=== PATIENT | male | born 1940 | race Caucasian/White ===

== ENCOUNTER 2017-12-29 09:11 | Emergency (ER) | payer MEDICARE, SELFPAY ==
[2017-12-29 09:17] VITALS: BP 131/65; PULSE 76; RESP 18; TEMP 36.8; O2SAT 99
--- NOTE | 2017-12-29 09:29 | DI.RAD_ITS ---
SYMPTOMS/DIAGNOSIS: RIGHT PROXIMAL TIBIA PAIN AND SWELLING AFTER BLUNT TRAUMA, ON ANTICOAGULANT RIGHT LEG: Three views were obtained. There are degenerative changes of the knee. There are apparent healed tibial and fibular diaphyseal fractures with two fixation screws in place in the mid tibia. There is no evidence of acute fracture.
--- NOTE | 2017-12-29 09:31 | W.ED.GENAD ---
Discharge Plan Discharge Details Chief Complaint: Orthopedic Primary Care Provider: Horacio Burns ED Provider: Stan Segura Home Meds and New Rx's Prescriptions: No Action cholecalciferol (vitamin D3) 1,000 UNIT capsule 1,000 unit PO DAILY RF: 0 omega-3 fatty acids-fish oil 1 EACH capsule 1 ea PO TID Qty: 270 RF: 4 amlodipine 5 MG tablet 10 mg PO DAILY Qty: 90 RF: 4 metoprolol succinate 25 MG tablet extended release 24 hr 25 mg PO DAILY Qty: 90 RF: 4 latanoprost 2.5 ML drops 1 drp Ophthalmic HS RF: 0 dofetilide 250 MCG capsule 250 mcg PO BID RF: 0 lisinopril 20 MG tablet 20 mg PO DAILY Qty: 90 RF: 4 pravastatin 20 MG tablet 20 mg PO DAILY Qty: 90 RF: 4 rivaroxaban [Xarelto] 20 mg tablet 20 mg PO DAILY Qty: 90 RF: 4 Medical Decision Making 77-year-old male who is anticoagulated for atrial fibrillation presents with days of right pretibial knee pain, swelling, ecchymosis after being struck by a round of cord wood as he was cutting [employer] He certainly has subcutaneous edema and bruising, must exclude underlying fracture, referred for x-ray which does not reveal acute fracture. Concern for occult tibial plateau fracture and patient referred for CT scan of the lower extremity. CT does not reveal acute fracture. Discussed with patient. Stable for outpatient management of contusion to the right proximal tibia continue HPI General Mode of arrival: wheelchair. Date/Time Provider Initiated Documentation: 12/29/17 09:19. Limitations to Documentation: no limitations. Information obtained by: patient and family. History of Present Illness 77 year old M presents to the emergency department with the chief complaint of Right knee pain, described as moderate, Quality is described as aching, and is localized to the right and lower extremity. Patient extremity. Patient started experiencing this day(s) and it has been constant. Immobilization improves symptom(s), Movement worsens symptoms . Patient notes no other symptoms.. HPI Narrative: This is a 77-year-old male who is anticoagulated for atrial fibrillation. He was cutting rounds of [place] [employer] when the blade of the chains are caught a round and through it into his right proximal tibia this past . Since that time he has had pain, swelling, bruising at the site of injury and it is increased with weightbearing though he has been able to ambulate. No other complaints. He did not get injured in any other way. He has not had numbness or tingling Related Data Home Medications Medication Instructions Recorded Confirmed cholecalciferol (vitamin D3) 1,000 unit PO DAILY 09/02/12 12/29/17 omega-3 fatty acids-fish oil 1 ea PO TID #270 09/02/12 12/29/17 amlodipine 10 mg PO DAILY #90 tab-cap 10/19/15 12/29/17 metoprolol succinate 25 mg PO DAILY #90 tab-cap 12/12/15 12/29/17 dofetilide 250 mcg PO BID 04/23/16 12/29/17 latanoprost 1 drp OPHTHALMIC HS drp 04/23/16 12/29/17 lisinopril 20 mg PO DAILY #90 tab-cap 10/06/17 12/29/17 pravastatin 20 mg PO DAILY #90 tab-cap 10/06/17 12/29/17 rivaroxaban 20 mg tablet 20 mg PO DAILY #90 tab-cap 12/25/17 12/29/17 Previous Rx's Medication Instructions Recorded lisinopril 20 mg PO DAILY #90 tab-cap 10/06/17 pravastatin 20 mg PO DAILY #90 tab-cap 10/06/17 rivaroxaban 20 mg tablet 20 mg PO DAILY #90 tab-cap 12/25/17 Allergies Allergy/AdvReac Type Severity Reaction Status Date / Time No Known Allergies Allergy Unverified 12/29/17 09:35 General Stated Complaint: Orthopedic DONNELL: 3 Review of Systems Review of Systems 6 systems reviewed and otherwise negative [facility] Family History Mother Essential hypertension Hyperlipidemia Cerebrovascular accident Father Personal history of malignant neoplasm Sister Essential hypertension Brother No problems noted. Grandfather No problems noted. Grandfather Myocardial infarction Cerebrovascular accident Grandmother No problems noted. Grandmother No problems noted. Son No problems noted. Son No problems noted. Surgical History Appendectomy Arthroplasty of knee (~01/2009) BUNIONECTOMY Fracture, Open Treatment (~1969) Open Carpal Tunnel release Exam Narrative Exam Narrative: GEN: awake, alert, oriented 3. Pleasant, well groomed, interactive. HEAD: Normocephalic, atraumatic ENT: Mucous membranes moist, oropharynx unremarkable, External ear exam unremarkable EYES: PERRL, EOMI NECK: Full ROM, no TARIQ, no menigismus CHEST/RESP: Nontender, clear to auscultation bilateral, no wheeze/rhonchi/rales CARDIOVASCULAR: RRR at the time of my exam, distant, no murmur, rub evon. 2+ Rad pulse bilateral ABDOMEN: Soft, nontender, no mass. +Bowel sounds EXT: Full ROM, no rash. Pain with palpation of the right knee. The joint is fully mobile. There is ecchymosis and swelling from the proximal right knee through the mid tibia. There is healed previous surgical incision of anterior tibia. 1+ palpable dorsalis pedis bilaterally. Sensation intact throughout the extremity Neuro: Grossly normal neurologic exam, conversant, interactive. Psych: Speech fluent, thoughts congruent, affect normal Course Vital Signs Temperature 36.8 C 12/29/17 09:17 Pulse 76 12/29/17 09:17 Respiratory Rate 18 12/29/17 09:17 Blood Pressure 131/65 12/29/17 09:17 Pulse Oximetry 99 12/29/17 09:17 Temperature 36.8 C 12/29/17 09:17 Temperature Source Temporal Artery Scan 12/29/17 09:17 Pulse 76 12/29/17 09:17 Respiratory Rate 18 12/29/17 09:17 Blood Pressure 131/65 12/29/17 09:17 Blood Pressure Position Sitting 12/29/17 09:17 Pulse Oximetry 99 12/29/17 09:17 Oxygen Delivery Method Room Air 12/29/17 09:17 Oxygen Flow Rate 0 12/29/17 09:17
--- NOTE | 2017-12-29 09:34 | ED.GENADUL_ITS ---
Discharge Plan Discharge Details Chief Complaint: Orthopedic Primary Care Provider: Horacio Burns ED Provider: Stan Segura Home Meds and New Rx's Prescriptions: No Action cholecalciferol (vitamin D3) 1,000 UNIT capsule 1,000 unit PO DAILY RF: 0 omega-3 fatty acids-fish oil 1 EACH capsule 1 ea PO TID Qty: 270 RF: 4 amlodipine 5 MG tablet 10 mg PO DAILY Qty: 90 RF: 4 metoprolol succinate 25 MG tablet extended release 24 hr 25 mg PO DAILY Qty: 90 RF: 4 latanoprost 2.5 ML drops 1 drp Ophthalmic HS RF: 0 dofetilide 250 MCG capsule 250 mcg PO BID RF: 0 lisinopril 20 MG tablet 20 mg PO DAILY Qty: 90 RF: 4 pravastatin 20 MG tablet 20 mg PO DAILY Qty: 90 RF: 4 rivaroxaban [Xarelto] 20 mg tablet 20 mg PO DAILY Qty: 90 RF: 4 Medical Decision Making 77-year-old male who is anticoagulated for atrial fibrillation presents with days of right pretibial knee pain, swelling, ecchymosis after being struck by a round of cord wood as he was cutting [employer]. He certainly has subcutaneous edema and bruising, must exclude underlying fracture, referred for x-ray which does not reveal acute fracture. Concern for occult tibial plateau fracture and patient referred for CT scan of the lower extremity. CT does not reveal acute fracture. Discussed with patient. Stable for outpatient management of contusion to the right proximal tibia continue HPI General Mode of arrival: wheelchair . Date/Time Provider Initiated Documentation: 12/29/17 09:19 . Limitations to Documentation: no limitations . Information obtained by: patient and family . History of Present Illness 77 year old M presents to the emergency department with the chief complaint of Right knee pain, described as moderate, Quality is described as aching, and is localized to the right and lower extremity. Patient extremity. Patient started experiencing this day(s) and it has been constant. Immobilization improves symptom(s), Movement worsens symptoms . Patient notes no other symptoms.. HPI Narrative: This is a 77-year-old male who is anticoagulated for atrial fibrillation. He was cutting rounds of [place] [employer] when the blade of the chains are caught a round and through it into his right proximal tibia this past . Since that time he has had pain, swelling, bruising at the site of injury and it is increased with weightbearing though he has been able to ambulate. No other complaints. He did not get injured in any other way. He has not had numbness or tingling Related Data Home Medications Medication Instructions Recorded Confirmed cholecalciferol (vitamin D3) 1,000 unit PO DAILY 09/02/12 12/29/17 omega-3 fatty acids-fish oil 1 ea PO TID #270 09/02/12 12/29/17 amlodipine 10 mg PO DAILY #90 tab-cap 10/19/15 12/29/17 metoprolol succinate 25 mg PO DAILY #90 tab-cap 12/12/15 12/29/17 dofetilide 250 mcg PO BID 04/23/16 12/29/17 latanoprost 1 drp OPHTHALMIC HS drp 04/23/16 12/29/17 lisinopril 20 mg PO DAILY #90 tab-cap 10/06/17 12/29/17 pravastatin 20 mg PO DAILY #90 tab-cap 10/06/17 12/29/17 rivaroxaban 20 mg tablet 20 mg PO DAILY #90 tab-cap 12/25/17 12/29/17 Previous Rx's Medication Instructions Recorded lisinopril 20 mg PO DAILY #90 tab-cap 10/06/17 pravastatin 20 mg PO DAILY #90 tab-cap 10/06/17 rivaroxaban 20 mg tablet 20 mg PO DAILY #90 tab-cap 12/25/17 Allergies Allergy/AdvReac Type Severity Reaction Status Date / Time No Known Allergies Allergy Unverified 12/29/17 09:35 General Stated Complaint: Orthopedic DONNELL: 3 Review of Systems Review of Systems 6 systems reviewed and otherwise negative [facility] Family History Mother Essential hypertension Hyperlipidemia Cerebrovascular accident Father Personal history of malignant neoplasm Sister Essential hypertension Brother No problems noted. Grandfather No problems noted. Grandfather Myocardial infarction Cerebrovascular accident Grandmother No problems noted. Grandmother No problems noted. Son No problems noted. Son No problems noted. Surgical History Appendectomy Arthroplasty of knee (~01/2009) BUNIONECTOMY Fracture, Open Treatment (~1969) Open Carpal Tunnel release Exam Narrative Exam Narrative: GEN: awake, alert, oriented 3. Pleasant, well groomed, interactive. HEAD: Normocephalic, atraumatic ENT: Mucous membranes moist, oropharynx unremarkable, External ear exam unremarkable EYES: PERRL, EOMI NECK: Full ROM, no TARIQ, no menigismus CHEST/RESP: Nontender, clear to auscultation bilateral, no wheeze/rhonchi/rales CARDIOVASCULAR: RRR at the time of my exam, distant, no murmur, rub evon. 2+ Rad pulse bilateral ABDOMEN: Soft, nontender, no mass. +Bowel sounds EXT: Full ROM, no rash. Pain with palpation of the right knee. The joint is fully mobile. There is ecchymosis and swelling from the proximal right knee through the mid tibia. There is healed previous surgical incision of anterior tibia. 1+ palpable dorsalis pedis bilaterally. Sensation intact throughout the extremity Neuro: Grossly normal neurologic exam, conversant, interactive. Psych: Speech fluent, thoughts congruent, affect normal Course Vital Signs Temperature 36.8 C 12/29/17 09:17 Pulse 76 12/29/17 09:17 Respiratory Rate 18 12/29/17 09:17 Blood Pressure 131/65 12/29/17 09:17 Pulse Oximetry 99 12/29/17 09:17 Temperature 36.8 C 12/29/17 09:17 Temperature Source Temporal Artery Scan 12/29/17 09:17 Pulse 76 12/29/17 09:17 Respiratory Rate 18 12/29/17 09:17 Blood Pressure 131/65 12/29/17 09:17 Blood Pressure Position Sitting 12/29/17 09:17 Pulse Oximetry 99 12/29/17 09:17 Oxygen Delivery Method Room Air 12/29/17 09:17 Oxygen Flow Rate 0 12/29/17 09:17
--- NOTE | 2017-12-29 10:20 | DI.CT_ITS ---
SYMPTOMS/DIAGNOSIS: RIGHT PROXIMAL TIBIA PAIN AND SWELLING AFTER BLUNT TRAUMA, ON ANTICOAGULANT RIGHT KNEE CT: CT examination of the knee was performed utilizing multislice acquisition and multiplanar reconstruction. Note is made of a small knee joint effusion and there appears to be a presumed anterior hematoma at the level of the proximal tibia. No underlying fracture identified. Marked patchy and focal demineralization of the bones noted. CONCLUSION: No evidence of acute fracture.
[2017-12-29 11:11] VITALS: BP 112/80; PULSE 80; RESP 18; TEMP 36.9; O2SAT 99
== END 2017-12-29 11:12 | disposition home or self-care (01) ==
PROVIDERS: Emergency Provider Emergency Medicine; PCP Family Medicine
DX: S80.11XA Contusion of right lower leg, initial encounter (principal); W20.8XXA Other cause of strike by thrown, projected or falling object, initial encounter; I10 Essential (primary) hypertension; Z79.01 Long term (current) use of anticoagulants; I48.91 Unspecified atrial fibrillation
CPT/HCPCS: 99284; 73590; 73700

== ENCOUNTER 2018-12-24 07:00 | Outpatient (CLI) | payer MEDICARE, SELFPAY ==
[2018-12-24 12:33] LABS: HCT 43.9 % (40.0-50.0); HGB 14.8 g/dL (13.5-17.5); Mean Corp. HGB Concentration 33.7 g/dL (32.0-36.0); Mean Corpuscular Hemoglobin 31.2 pg (27.0-33.0); Mean Corpuscular Volume 92.4 fL (80-95); Mean Platelet Volume 9.8 fL (8.0-11.0); Platelet Count 260 x1000/uL (130-400); RBC 4.75 m/cumm (4.50-6.00); RBC Distribution Width 12.9 % (11.8-14.1); White Blood Cell Count 6.46 k/cumm (4.4-10.8)
[2018-12-24 13:42] LABS: Anion Gap 10.1 mmol/L (3-11); BUN 16 mg/dL (7-18); CO2 27.9 mmol/L (21.0-32.0); CREATININE 0.92 mg/dL (0.70-1.30); Calcium 9.2 mg/dL (8.5-10.1); Chloride 104 mmol/L (98-107); Glucose 115 mg/dL (70-100); Potassium 3.8 mmol/L (3.5-5.1); Sodium 142 mmol/L (136-145)
== END 2018-12-24 07:20 ==
PROVIDERS: PCP Family Medicine; Visit Provider Family Medicine
DX: I10 Essential (primary) hypertension (principal); Z01.818 Encounter for other preprocedural examination
CPT/HCPCS: 36415; 80048; 85027

== ENCOUNTER → 2019-07-19 10:25 | Outpatient (BNVA) | payer MEDICARE, SELFPAY | PROVIDERS: PCP Family Medicine; Referring Provider Family Medicine; Visit Provider Nurse Practitioner Gerontology | DX: R31.0 Gross hematuria (principal); N40.1 Benign prostatic hyperplasia with lower urinary tract symptoms; N13.8 Other obstructive and reflux uropathy; E11.9 Type 2 diabetes mellitus without complications; I10 Essential (primary) hypertension | CPT/HCPCS: 99204; 99215 ==

== ENCOUNTER 2019-07-19 14:16 | Outpatient (REF) | payer MEDICARE, SELFPAY ==
--- NOTE | 2019-07-19 14:00 | PAPNONF_PTH ---
PATIENT: Tan Squires JR LOC: [facility] U#:[id number] AGE/SX: 79/M ROOM: RE07/19/[address]: Daxa Santamaria DNP : 1940 BED: DIS: 07/19/2019 SPEC #: [id number] RECD: 07/20/19 14:50 STATUS: SALLY REQ #: [id number] MYCHAL: 07/19/19 14:[address]: Daxa Santamaria DEPT: [facility] Cytology RECD BY: Mike Escobar ENTERED: 07/20/19 14:51 SP TYPE: IRMA JAQUEZ DR: Marcos Morales MD Tissues: 1 - BODY FLUID CYTO(SPUTUM/URINE)[facility] Procedures: BODY FLUID CYTO(URINE/SPUTUM) Comments: [id number] (Total Volume = 60mls)
== END 2019-07-19 14:36 ==
LOC: LBN 14:16
PROVIDERS: PCP Family Medicine; Visit Provider Nurse Practitioner Gerontology
DX: R31.0 Gross hematuria (principal); R82.89 Other abnormal findings on cytological and histological examination of urine
CPT/HCPCS: 88104

== ENCOUNTER 2019-07-28 02:07 | Outpatient (CLI) | payer MEDICARE, SELFPAY ==
[2019-07-28] MEDS: Omnipaque 350 MG/ML 100 ML BTL IJ (08:21)
[2019-07-28] MEDS: Normal Saline - Diluent 50 ML VIAL IV (08:21)
[2019-07-28] MEDS: Normal Saline Flush 10 ML SYR IVP (08:27)
--- NOTE | 2019-07-28 09:20 | DI.CT_ITS ---
EXAM: CT ABDOMEN PELVIS WO/W CLINICAL HISTORY: painless gross hematuria; Atypical urothetial,R31.9,R31.0 COMPARISON: No exams were available for comparison FINDINGS: CT examination of the abdomen and pelvis was performed utilizing CT urogram protocol with noncontrast CT followed by venous phase and delayed phase imaging. The noncontrast scan shows a nonobstructing right midpole renal calculus or calculi measuring about 3-4 millimeters in diameter. No left nephrol ithiasis. No ureterolithiasis. There is a urinary bladder calcification which is irregular measurin g up to about 16 millimeters in diameter. Visualized lung bases are clear. There are new numerous fluid attenuation masses of the liver and madonna th kidneys consistent with cysts. Otherwise liver, spleen, and pancreas appear intact. Gallbladder and bile ducts are unremarkable. Abdominal aorta and major branches appear intact. No significant abdominal wall hernia seen. No significant abdominal or pelvic adenopathy seen. Appendix not visualized but there is no evidence of diverticulitis or appendicitis. The adrenals appear normal bilaterally. No enhancement seen regarding the fluid attenuation bilatera l renal masses, consistent with cysts. No gross abnormality of the renal collecting systems or urete rs. Delayed phase images show abnormal contour of the urinary bladder wall with multi lobulated masslike lesions seen bilaterally on the sidewalls of the bladder adjacent to the trigone, left greater than right. There is mild prostatic enlargement. The findings as described are suspicious for bladder wal l neoplasm. Additional evaluation with cystoscopy and retrograde ureterography are recommended. IMPRESSION: Nonobstructing right renal calculus. Urinary bladder calculus. Multiple apparent renal and hepatic cysts. There are apparent lobulated bladder wall masses bilaterally, suspicious for neoplastic disease. Cor relation with cystoscopy and retrograde ureterography recommended.
== END 2019-07-28 02:27 ==
PROVIDERS: PCP Family Medicine; Visit Provider Nurse Practitioner Gerontology
DX: R31.0 Gross hematuria (principal); N20.0 Calculus of kidney; N32.89 Other specified disorders of bladder; N28.1 Cyst of kidney, acquired; K76.89 Other specified diseases of liver
CPT/HCPCS: 74178; 82565; J3490

== ENCOUNTER → 2019-07-29 15:01 | Outpatient (BNVA) | payer MEDICARE, SELFPAY | PROVIDERS: PCP Family Medicine; Referring Provider Family Medicine; Visit Provider Nurse Practitioner Gerontology | DX: N32.89 Other specified disorders of bladder (principal); N21.0 Calculus in bladder | CPT/HCPCS: 99213; 99442 ==

== ENCOUNTER 2019-08-02 09:18 | Outpatient (CLI) | payer MEDICARE, SELFPAY ==
[2019-08-03 14:50] LABS: COVID-19 RT-PCR Result Not Detected ((See Note))
== END 2019-08-02 09:38 ==
PROVIDERS: PCP Family Medicine; Visit Provider Urology
DX: Z11.59 Encounter for screening for other viral diseases (principal)
CPT/HCPCS: U0003

== ENCOUNTER 2019-08-05 08:41 | Inpatient (IN) | payer MEDICARE, SELFPAY ==
[2019-08-05] VITALS (11 sets, daily range): BP systolic 112–149; BP diastolic 49–78; PULSE 42–65; RESP 11–18; TEMP 35.8–37; O2SAT 94–100
--- NOTE | 2019-08-05 09:08 | W.PM.HP.N ---
Date of service: 08/05/19 Time of Service: 10:37 Assessment and Plan Assessment and plan (1) Hematuria: Status: Acute Assessment and plan: I am not sure that we will be able to get to all of his bladder pathology addressed in one setting. Ideally, we would deal with his bladder mass first. With the large stone in his bladder, it may be difficult to visualize all of his mucosa and resect all of his tumor. If we are able to complete his bladder tumor resection and our visibility is still quite good, we can then attempt to perform a holmium laser lithotripsy of his large bladder stone. If visibility is questionable, we will likely need to do a staged procedure. I would expect that we will need continuous bladder irrigation overnight given the radiographic size of his bladder tumor and bladder stone.. (2) Bladder mass: Status: Acute (3) Bladder stone: Status: Acute History of Present Illness History of Present Illness Chief Complaint: Hematuria Narrative: Tan is a 79-year-old male referred to urology by Dr. Burns out of [facility] for gross hematuria. At annual exam patient provided urine sample due to history of gross hematuria -urine was positive for moderate amount of blood. He will have an episode of gross hematuria approximately every month where he sees brown or dark-colored urine with voiding. No clots or gelatinous material. He has no discomfort when this occurs. He notes that after a few voids in the morning his urine clears after drinking plenty of fluids. Patient reports that he has had notable gross hematuria for about 4 months. He also notes that he is on a blood thinner for A. fib. He has not tried holding or changing it to see if this stops the blood due to the hematuria only lasting a day or less. Patient is asymptomatic for infection or kidney stones. He does note that he has an occasional suprapubic joint bone pain. He also notes he is up to the bathroom 3-4 times a night. He notes he does not have urinary frequency or urgency but when he is up and about passing the bathroom he will stop to go. He notes there is some urinary hesitancy. He finds that he stream is weaker than it was when he was younger. He thinks he is emptying completely but there is times when he feels like he is not. In terms of urology he does have history of kidney stones approximately 20 years ago. He had 2 bouts relatively close together. He notes that he passed the stones without use of surgical intervention. 1 stone was collected and was determined to be a calcium oxalate. He has no history of parathyroidism or gout. He denies long bone pain, abnormal bleeding or bruising, or abnormal weight loss. He does report being in extensive cigarette smoker of 46 years. He smokes anywhere between 1 to 2 packs/day on average. He denies chemical exposures but used to work at the [employer] in [place]. He was evaluated with a urine cytology which showed some atypical cells. He then had a CT scan which demonstrates filling defects within the bladder worrisome for carcinoma as well as a very large bladder stone. Review of Systems Narrative: No fevers or chills No vision change or dysphasia No diabetes or thyroid No shortness of breath, cough or hemoptysis No chest pain. Hx Atrial Fibrillation c/o suprapubic discomfort. No nausea, vomiting, hepatitis, ulcers, jaundice, diarrhea or constipation No seizures, strokes or peripheral neuropathy No bleeding disorders or anemia No gout PFSH Social History (Updated 06/02/19 @ 11:55 by James Pozo) Smoking/Tobacco Use Status: Former Tobacco Use Quit Date: 08/29/04 Second Hand Exposure: Yes Alcohol Intake: current Alcohol Intake frequency: a few times a week Alcohol type: wine Drug use: Never Substance use type: does not use Caregiver/Support person: No Household members: spouse Housing: house Communication Needs: Corrective Lenses Do you need help understanding health information?: Rarely Pets and animals: No Sexually active: Yes Do you think of yourself as: straight/heterosexual Current gender identity: male What is your relationship status?: How often do you talk on the phone with friends or family?: three or more times per week How often do you get together with friends or relatives?: twice per week How often do you attend episcopal or oriental orthodox services?: decline to answer Do you belong to any clubs or organized social groups?: yes Panel score (0-1 are the most socially isolated patients): 3 What type of physical activity do you participate in: none Frequency: does not exercise Debora/Zoroastrian: Sabianist Special debora needs: No Seatbelt use: never Helmet use: No 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: No Do you feel safe at home: Yes Do you feel safe in your relationship?: Yes Meds Home Medications and Allergies Home Medications Medication Instructions Recorded Confirmed Type cholecalciferol (vitamin D3) 1,000 unit PO DAILY 09/02/12 08/05/19 History omega-3 fatty acids-fish oil 1 ea PO DAILY #270 09/02/12 08/05/19 History amlodipine 5 mg tablet 10 mg PO HS #90 tab-cap 06/09/19 08/05/19 History dofetilide 250 mcg capsule 250 mcg PO BID 06/09/19 08/05/19 History latanoprost 0.005 % eye drops 1 drp OPHTHALMIC HS drp 06/09/19 08/05/19 History metoprolol succinate 25 mg 25 mg PO DAILY #90 tab-cap 06/09/19 08/05/19 History tablet,extended release 24 hr rivaroxaban 20 mg tablet 20 mg PO DAILY #90 tab-cap 07/12/19 08/05/19 Rx lisinopril 20 mg PO HS 08/02/19 08/05/19 History pravastatin 20 mg PO HS 08/02/19 08/05/19 History Allergies Allergy/AdvReac Type Severity Reaction Status Date / Time No Known Allergies Allergy Verified 08/05/19 08:54 Exam Narrative Exam Narrative: He is in no obvious distress. He is cooperative. His vital signs are documented elsewhere in the chart His neck is supple with no mass Cardiac exam shows a regular rate and rhythm Lungs are clear His abdomen is obese but soft with no mass He has no edema in the lower extremities He is awake and alert Results Last Vital Signs Temp 36.1 C L 08/05/19 08:56 Pulse 65 08/05/19 08:56 Resp 17 08/05/19 08:56 BP 132/78 08/05/19 08:56 Pulse Ox 95 08/05/19 08:56 COVID-19 Screening Traveled to [place] from one of the affected countries or regions?: NO Medical treatment received for symptoms/illness related to travel?: Preop COVID testing completed and negative
[2019-08-05] MEDS: Lactated Ringers 1,000 ML 80 ML IV ×2 (09:27→15:01)
[2019-08-05] MEDS: ceFAZolin 1 GM/50 ML BAG IVPB (11:18)
[2019-08-05] MEDS: Lidocaine 2% Jelly 6 ML SYR (11:56)
--- NOTE | 2019-08-05 12:42 | BLADDER_PTH ---
PATIENT: Tan Squires JR LOC: U#:[id number] AGE/SX: 79/M ROOM: RE08/05/[address]: Amaury Deutsch MD : 1940 BED: A DIS: 08/06/2019 SPEC #: [id number] RECD: 08/05/19 14:20 STATUS: SALLY REQ #: [id number] MYCHAL: 08/05/19 12:[address]: Amaury Deutsch DEPT: Surgical Specimen RECD BY: Mike Escobar ENTERED: 08/05/19 14:21 SP TYPE: Bladder OTHR DR: Horacio Burns MD Tissues: 1 - BLADDER BIOPSY Procedures: GROSS AND MICRO LEVEL 5 Comments: [id number]
--- NOTE | 2019-08-05 12:57 | ROE_ITS ---
Date of service: 08/05/19 Time of Service: 12:57 Operative Note Operative Note DATE OF PROCEDURE: 08/05/19 PRE-OP DIAGNOSIS: Hematuria Bladder mass Bladder stone POST-OP DIAGNOSIS: same PROCEDURE: Cystoscopy, Holmium laser lithotripsy of Bladder stone, TUR Bladder tumor (>5 cm) SURGEON: Amaury Deutsch ANESTHESIA: spinal ESTIMATED BLOOD LOSS: 200 PATHOLOGY: other (1) Bladder Stone 2) Bladder Mass) COMPLICATIONS: None Patient was transported to: PACU Patient's condition: stable Indications: This is a 79-year-old gentleman who initially noticed gross painless hematuria. He had a urine cytology that demonstrated some 8 core urothelial cells. He then had a CT scan which showed a mass within the bladder as well as a large stone in the bladder. He also had a nonobstructing stone in the right kidney. He now presents for cystoscopy with transurethral resection of bladder tumor and possible holmium laser lithotripsy of his bladder stone Findings: Large spiculated bladder stone Papillary appearing bladder tumor occupying the majority of the left side of the bladder (measuring greater than 5 cm) Smaller papillary tumor on right lateral bladder wall near the bladder neck (2 to 5 cm) Procedure Description: The patient was brought to the operating room on 08/05/2019. He was given a dose of IV antibiotics. After successful induction of spinal anesthesia, he was placed in the dorsal lithotomy position. His genitalia is prepped and draped. 2% Xylocaine jelly was instilled into the urethra to act as a local anesthetic. I then dilated the urethral meatus up to a size 26 [place]. A 26 [place] resectoscope sheath was passed through the urethra into the bladder. I utilized the visual obturator to inspect the urethra using a 30 degree lens. The pendulous bulbous membranous urethra was appeared normal with no strictures. The prostatic urethra showed trilobar hypertrophy with a prominent median lobe. The bladder neck was then entered the bladder mucosa was inspected. The entire left side of the bladder appeared to be replaced with papillary mucosa worrisome for urothelial cell carcinoma. A small less than 2 cm area of papillary growth was seen up toward the dome of the bladder. A third area of papillary growth was seen on the right lateral wall near the bladder neck. A spiculated bladder stone was identified as well. We decided to start her treatment on the stone itself. We removed the resectoscope sheath and passed a 22 [place] cystoscope through the urethra into the bladder. I used a 1000 ?m holmium laser fiber to fracture the stone into multiple pieces. All the fractured stone fragments were then evacuated and sent to both pathology for chemical analysis I then switched back to the 26 [place] resectoscope sheath and used an Tasqe resectoscope and bipolar cautery to resect all visible tumor. All resected tissue was evacuated and sent to pathology for permanent section. The base of the resection site was cauterized with the coagulation current. At the completion of the resection, hemostasis appeared quite good. Due to the depth of the resection, we elected not to instill intravesical chemotherapy postoperatively. The bladder was then filled with irrigant. The resectoscope was removed. A 24 [place] hematuria catheter was then passed through the urethra into the bladder. The catheter balloon was inflated with 30 cc of sterile water. Continuous bladder irrigation with saline was then begun. A belladonna and opium suppository was then placed in the patient's rectum. He tolerated this procedure well with no complications.
--- NOTE | 2019-08-05 15:32 | NUR.NOTE ---
Nursing Note: 1505: pt arrives to room 209 via pt bed from PACU. pt has patent 3 way renee CBI at this time with light pink drainage noted in renee. pt has patent IV in RH with LR @ 80 cc/hr. pt alert/oriented x 3. pt states he feels his pain is good at this time. pt oriented to call perkins/tv remote. reviewed symptoms to report to nursing. VSS-please see intervention on worklist. pt HR is jenna in 40's at this time; has been jenna since surgery. 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 pt handed off to Marlon Anguiano RN at approximately 1515 at the bedside.
[2019-08-05] MEDS: ceFAZolin 2 GM/50 ML BAG IVPB (20:13)
[2019-08-05] MEDS: Dofetilide 250 MCG CAP PO (20:14)
[2019-08-05] MEDS: amLODIPine 5 MG TAB 10 MG PO (21:02)
[2019-08-05] MEDS: Pravastatin 20 MG TAB PO (21:02)
[2019-08-05] MEDS: Lisinopril 20 MG TAB PO (21:02)
[2019-08-05] MEDS: Latanoprost 0.005% 2.5 ML BTL OU (21:03)
[2019-08-06 03:29] VITALS: BP 117/67; PULSE 61; RESP 18; TEMP 36.9; O2SAT 93
[2019-08-06] MEDS: ceFAZolin 2 GM/50 ML BAG IVPB ×2 (04:22→11:59)
[2019-08-06] MEDS: Lactated Ringers 1,000 ML 80 ML IV (04:23)
--- NOTE | 2019-08-06 07:02 | PGE_ITS ---
Date of Service Date of service: 08/06/19 Time of Service: 07:02 Assessment and Plan Assessment and plan (1) Bladder mass: Status: Acute Assessment and plan: We would discontinue his bladder irrigation but leave his catheter in place to make sure the urine remains clear. Once his labs are available this morning, and we see how he does without irrigation, we can probably discharge him to home. We will decide whether to discharge with or without a catheter based on his clinical progression. If he does go home with a catheter, he will come to our office on Friday to have it removed. (2) Bladder stone: Status: Acute Subjective Subjective Interval history since last seen: He has some catheter discomfort. He had no fevers or chills overnight. He is able to take p.o. with no nausea or vomiting Exam Narrative Exam Narrative: He looks well. His vital signs are documented elsewhere. His bladder irrigation is clear at this point He is awake and alert His labs are just being drawn this morning Objective Objective Clinical Data: Vital Signs Temperature 36.9 C 08/06/19 03:29 Temperature Source Tympanic 08/06/19 03:29 Pulse 61 08/06/19 03:29 Pulse Rhythm Irregular 08/06/19 06:29 Respiratory Rate 18 08/06/19 03:29 Respiratory Effort Non-Labored 08/06/19 06:29 Respiratory Depth Normal 08/06/19 06:29 Respiratory Pattern Normal 08/06/19 06:29 Blood Pressure 117/67 08/06/19 03:29 Pulse Oximetry 93 L 08/06/19 03:29 Respiratory End-tidal CO2 38 08/05/19 14:22 Oxygen Delivery Method Room Air 08/06/19 03:29 Oxygen Flow Rate 0 08/06/19 03:29 Pain Level 0 08/05/19 19:25 Intake & Output 08/05/19 08/05/19 08/06/19 11:59 23:59 11:59 Intake Total 1890 / 1890 1050 / 1050 Balance 1890 / 1890 1050 / 1050 Weight 101.5 kg Intake: IV 1650 / 1650 1050 / 1050 Oral 240 / 240 Other: Urine Color Humphreys Pale [place] Urine Appearance Clear Hematuria Comment from bright red to straw, no clots noted Approx 2300 urine output was found to have stopped. Assessment eventually revealed that the problem was an upstream occlusion. The pause in irrigation led to the need to hand irrigate x 1 which cleared the lumen of several mL of red-brown, sludgy, granular exudate. After this 3-way irrigation was maintained and output is clear pale pink. Emesis Description None
[2019-08-06 07:16] LABS: HCT 41.7 % (40.0-50.0); HGB 14.1 g/dL (13.5-17.5); Mean Corp. HGB Concentration 33.8 g/dL (32.0-36.0); Mean Corpuscular Hemoglobin 31.1 pg (27.0-33.0); Mean Corpuscular Volume 91.9 fL (80-95); Platelet Count 228 x1000/uL (130-400); RBC 4.54 m/cumm (4.50-6.00); RBC Distribution Width 12.9 % (11.8-14.1); White Blood Cell Count 8.33 k/cumm (4.4-10.8)
[2019-08-06 07:22] LABS: Anion Gap 4.1 mmol/L (3-11); BUN 20 mg/dL (7-18); CO2 30.9 mmol/L (21.0-32.0); CREATININE 0.87 mg/dL (0.70-1.30); Calcium 8.5 mg/dL (8.5-10.1); Chloride 103 mmol/L (98-107); Glucose 109 mg/dL (74-106); Sodium 138 mmol/L (136-145)
[2019-08-06 07:30] VITALS: BP 110/65; PULSE 62; RESP 19; TEMP 36.6; O2SAT 94
[2019-08-06] MEDS: Metoprolol CR 25 MG TABCR PO (07:51)
[2019-08-06] MEDS: Omega-3 Fatty Acids 1000 MG CAP PO (07:51)
[2019-08-06] MEDS: Cholecalciferol (Vitamin D3) 1,000 UNIT TAB 1000 UNITS PO (07:51)
[2019-08-06] MEDS: Dofetilide 250 MCG CAP PO (07:52)
--- NOTE | 2019-08-06 10:30 | DSE_ITS ---
Date of service: 08/06/19 Time of Service: 10:30 DS: Diagnosis Discharge Diagnosis (1) Bladder mass: Status: Acute (2) Bladder stone: Status: Acute Discharge Plan Disposition Patient Disposition: HOME Condition: Stable Discharge Details Reason For Visit: BLADDER MASS Admit Date/Time: 08/05/19 08:41 Admit Provider: Amaury Deutsch Attending Provider: Amaury Deutsch Primary Care Provider: [facility] Hospital Course Hospital Course: The patient was brought to the operating room on 08/05/2019. He underwent cystoscopy which revealed a large bladder stone and a large bladder mass. We were able to fragment the stone using the holmium laser. All evacuated stone fragments were sent for chemical analysis. We were then able to resect his visible bladder tumor. We left a irrigating Diaz catheter in place and ran continuous bladder irrigation overnight. On postoperative day #1, the irrigant was clear. His lab work was stable. We discontinued the irrigation and the urine itself remains transparent. I removed his Diaz catheter. He will be discharged later today without a catheter as long as he is voiding. If he is unable to void, we will likely replace his catheter and he will still be able to go home with his catheter to a leg bag. Home Meds and New Rx's Prescriptions: New tramadol 50 mg tablet 50 mg PO Q8H PRN (Reason: pain) Qty: 15 RF: 0 No Action cholecalciferol (vitamin D3) 1,000 UNIT capsule 1,000 unit PO DAILY RF: 0 omega-3 fatty acids-fish oil 1 EACH capsule 1 ea PO DAILY Qty: 270 RF: 4 dofetilide 250 mcg capsule 250 mcg PO BID RF: 0 amlodipine 5 mg tablet 10 mg PO HS Qty: 90 RF: 4 latanoprost 0.005 % drops 1 drp Ophthalmic HS RF: 0 metoprolol succinate 25 mg tablet extended release 24 hr 25 mg PO DAILY Qty: 90 RF: 4 Xarelto 20 mg tablet 20 mg PO DAILY Qty: 90 RF: 4 lisinopril 20 mg tablet 20 mg PO HS RF: 0 pravastatin 20 mg tablet 20 mg PO HS RF: 0 Discharge Instructions Additional Instructions: We will ask him to discontinue his Xarelto until his urine shows no signs of blood No straining or lifting greater than 10 pounds until his follow-up visit Okay to shower/bathe Follow-up 1 week to review surgical pathology Prescription for tramadol sent to pharmacy Activity:: See above Equipment/Supplies:: No Equipment Needed Diet:: As Tolerated Discharge Orders Discharge Orders: Discharge Order (Routine); Ordered 08/06/19 Ordered By: Amaury Deutsch Discharge Data Discharge Comment: Only discharge if patient is voiding well DS: Summary Status at Discharge Functional status at discharge: independent ambulation Overall status at discharge: patient is back to baseline Mental Status: mental status grossly normal Speech and Movement: speech and movement normal Mood: congruent mood Affect: normal affect Exam Narrative Exam Narrative: On the morning of his discharge, the patient looks well He does not appear septic or toxic His vital signs are documented elsewhere His abdomen is soft with no masses He is awake, alert and oriented. Psych Mental Status: mental status grossly normal Speech and Movement: speech and movement normal Mood: congruent mood Affect: normal affect DS: Data Vitals/I&O Vitals and I&O: Vital Signs Temperature 36.6 C 08/06/19 07:30 Temperature Source Tympanic 08/06/19 07:30 Pulse 62 08/06/19 07:30 Pulse Rhythm Irregular 08/06/19 06:29 Respiratory Rate 19 08/06/19 07:30 Respiratory Effort Non-Labored 08/06/19 06:29 Respiratory Depth Normal 08/06/19 06:29 Respiratory Pattern Normal 08/06/19 06:29 Blood Pressure 110/65 08/06/19 07:30 Pulse Oximetry 94 L 08/06/19 07:30 Respiratory End-tidal CO2 38 08/05/19 14:22 Oxygen Delivery Method Room Air 08/06/19 07:30 Oxygen Flow Rate 0 08/06/19 07:30 Pain Level 0 08/06/19 07:30 Intake & Output 08/05/19 08/05/19 08/06/19 11:59 23:59 11:59 Intake Total 1890 / 1890 1050 / 1050 Balance 189 / 1890 1050 / 1050 Weight 101.5 kg Intake: IV 1650 / 1650 1050 / 1050 Oral 240 / 240 Other: Urine Color Humphreys Pale [place] Urine Appearance Clear Hematuria Comment from bright red to straw, no clots noted Approx 2300 urine output was found to have stopped. Assessment eventually revealed that the problem was an upstream occlusion. The pause in irrigation led to the need to hand irrigate x 1 which cleared the lumen of several mL of red-brown, sludgy, granular exudate. After this 3-way irrigation was maintained and output is clear pale pink. Emesis Description None Data Completed and Pending Labs on day of discharge: Labs from last 24 hours 08/06/19 08/06/19 08/05/19 06:50 06:50 12:42 WBC 8.33 RBC 4.54 Hgb 14.1 Hct 41.7 MCV 91.9 MCH 31.1 MCHC 33.8 RDW 12.9 Plt Count 228 MPV 9.0 Sodium 138 Potassium 4.0 Chloride 103 Carbon Dioxide 30.9 Anion Gap 4.1 BUN 20 H Creatinine 0.87 Estimated GFR/1.73 m2 >= 60.00 Glucose 109 H Calcium 8.5 Stone Source Pending Stone Comment Pending Kidney Stone Analysis Pending [facility] Medical History Bucket handle tear of lateral meniscus of knee (Resolved 02/27/07) left knee; repaired History of tobacco use (Inactive) Kidney stone (Resolved) Kidney stone (Inactive) Surgical History Fracture, Open Treatment (~1969) RIGHT LEG History of appendectomy (Inactive) History of arthroscopy of knee (Inactive) Dr. Sweet; left knee; repair medial meniscus History of open reduction and internal fixation (ORIF) procedure (Inactive) 1969 Right leg Open Carpal Tunnel release LEFT Status post bunionectomy (Inactive) Bilateral Status post carpal tunnel release (Inactive) Family History Mother , 97 Essential hypertension Hyperlipidemia Stroke Father , 93 Cancer Sister Essential hypertension Brother No problems noted. Maternal Grandfather , 67 No problems noted. Paternal Grandfather , 80+ Myocardial infarction Stroke Maternal Grandmother , 50 No problems noted. Paternal Grandmother , 50? No problems noted. Son No problems noted. Son No problems noted. Other History of tobacco use Social History Smoking/Tobacco Use Status: Former Tobacco Use Quit Date: 08/29/04 Second Hand Exposure: Yes Alcohol Intake: current Alcohol Intake frequency: a few times a week Alcohol type: wine Drug use: Never Substance use type: does not use Caregiver/Support person: No Household members: spouse Housing: house Communication Needs: Corrective Lenses Do you need help understanding health information?: Rarely Pets and animals: No Sexually active: Yes Do you think of yourself as: straight/heterosexual Current gender identity: male What is your relationship status?: How often do you talk on the phone with friends or family?: three or more times per week How often do you get together with friends or relatives?: twice per week How often do you attend adventism or yazidi services?: decline to answer Do you belong to any clubs or organized social groups?: yes Panel score (0-1 are the most socially isolated patients): 3 What type of physical activity do you participate in: none Frequency: does not exercise Debora/Yarsani: Pentecostalism Special debora needs: No Seatbelt use: never Helmet use: No 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
--- NOTE | 2019-08-06 13:02 | W.NUTRFU ---
Date of service: 08/06/19 Time of Service: 13:02 Nutritional Follow up NOTE: 79 year old male admitted with bladder mass, awaiting procedure. PMH: Dm , hypercholesterolemia. No recent A1C, fasting BS 109 mg/dl today. BMI indiacates obesity. Following Regular diet with adequate intake. Not at risk for nutritional declne. will be available prn. Time Spent in Nutritional Counseling and Treatment: 0 time spent face to face
--- NOTE | 2019-08-06 15:03 | PGE_ITS ---
Date of Service Date of service: 08/06/19 Time of Service: 15:03 Assessment and Plan Assessment and plan (1) Bladder mass: Status: Acute Assessment and plan: He can still go home today with his catheter to a leg bag. He will follow-up with us early next week for catheter removal. (2) Bladder stone: Status: Acute Subjective Subjective Interval history since last seen: The patient has been unable to void well since the catheter was removed this morning. On bladder scan, his bladder volume is approximately 300 cc. Exam Narrative Exam Narrative: The patient was seen at the bedside. His genitalia was prepped. 2% Xylocaine jelly was instilled into the urethra to act as a local anesthetic. A 16 [place] catheter was then passed through the urethra into the bladder. The catheter balloon was inflated with 10 cc of sterile water. Light pink urine was obtained. The catheter was hooked to gravity drainage Objective Objective Clinical Data: Abnormal lab results 08/06/19 Range/Units 06:50 BUN 20 H (7-18) mg/dL Glucose 109 H (74-106) mg/dL Vital Signs Temperature 36.6 C 08/06/19 07:30 Temperature Source Tympanic 08/06/19 07:30 Pulse 62 08/06/19 07:30 Pulse Rhythm Regular 08/06/19 10:50 Respiratory Rate 19 08/06/19 07:30 Respiratory Effort Non-Labored 08/06/19 10:50 Respiratory Depth Normal 08/06/19 10:50 Respiratory Pattern Normal 08/06/19 10:50 Blood Pressure 110/65 08/06/19 07:30 Pulse Oximetry 94 L 08/06/19 07:30 Respiratory End-tidal CO2 38 08/05/19 14:22 Oxygen Delivery Method Room Air 08/06/19 07:30 Oxygen Flow Rate 0 08/06/19 07:30 Pain Level 0 08/06/19 07:30 Intake & Output 08/05/19 08/06/19 08/06/19 23:59 11:59 23:59 Intake Total 1889 / 1890 1550 / 1850 300 / 1850 Output Total Balance 1889 / 1889 1520 / 1805 285 / 1805 Intake: IV 1650 / 1650 1050 / 1050 Oral 240 / 240 500 / 800 300 / 800 Output: Urine Other: Urine Color Humphreys Dark Red Dark Red Urine Appearance Clear Hematuria Hematuria Urine Odor Strong Comment from bright red to straw, no clots noted bc by Dr. Deutsch Patient has only been able to void a totlal of 45 cc blood, since renee removal at 10. While not terribly uncomfortable, is concerned. Patient was asked to sit on the toilet and concentrate on voiding. After scant result he was bladder scanned for 269-271 cc urine , will notify Dr. Deutsch Stool Size Moderate Stool Characteristics Soft Formed Emesis Description None Voiding Methods Urinal Laboratory Results WBC 8.33 k/cumm (4.4-10.8) 08/06/19 06:50 RBC 4.54 m/cumm (4.50-6.00) 08/06/19 06:50 Hgb 14.1 g/dL (13.5-17.5) 08/06/19 06:50 Hct 41.7 % (40.0-50.0) 08/06/19 06:50 MCV 91.9 fL (80-95) 08/06/19 06:50 MCH 31.1 pg (27.0-33.0) 08/06/19 06:50 MCHC 33.8 g/dL (32.0-36.0) 08/06/19 06:50 RDW 12.9 % (11.8-14.1) 08/06/19 06:50 Plt Count 228 x1000/uL (130-400) 08/06/19 06:50 MPV 9.0 fL (8.0-11.0) 08/06/19 06:50 Sodium 138 mmol/L (136-145) 08/06/19 06:50 Potassium 4.0 mmol/L (3.5-5.1) 08/06/19 06:50 Chloride 103 mmol/L (98-107) 08/06/19 06:50 Carbon Dioxide 30.9 mmol/L (21.0-32.0) 08/06/19 06:50 Anion Gap 4.1 mmol/L (3-11) 08/06/19 06:50 BUN 20 mg/dL (7-18) H 08/06/19 06:50 Creatinine 0.87 mg/dL (0.70-1.30) 08/06/19 06:50 Estimated GFR/1.73 m2 >= 60.00 (mL/min/1.73m2) 08/06/19 06:50 Glucose 109 mg/dL (74-106) H 08/06/19 06:50 Calcium 8.5 mg/dL (8.5-10.1) 08/06/19 06:50
== END 2019-08-06 15:39 | disposition home or self-care (01) | DRG 670 ==
LOC: PDS 09:13 → MS 13:25
PROVIDERS: Admitting Provider Urology; PCP Family Medicine; Visit Provider Urology
PROC: 0TBB8ZZ Excision of Bladder, Via Natural or Artificial Opening Endoscopic (ICD-10-PCS; CPT 52240; principal; 2019-08-05 10:45)
PROC: 0TBB8ZZ Excision of Bladder, Via Natural or Artificial Opening Endoscopic (ICD-10-PCS; CPT 74450; 2019-08-05 10:45)
DX: C67.2 Malignant neoplasm of lateral wall of bladder (principal); C67.1 Malignant neoplasm of dome of bladder; N21.0 Calculus in bladder; R31.0 Gross hematuria; I48.91 Unspecified atrial fibrillation; Z79.01 Long term (current) use of anticoagulants
CPT/HCPCS: 52240; 52317; 36415; 80048; 85027; 88305; 99232; 99238; NC; 82365; 88307; J0690; J1885; J2001; J2405; J2704

== ENCOUNTER → 2019-08-09 09:04 | Outpatient (BNVA) | payer MEDICARE, SELFPAY | PROVIDERS: PCP Family Medicine; Referring Provider Family Medicine; Visit Provider Nurse Practitioner Gerontology | DX: N21.0 Calculus in bladder (principal); Z46.6 Encounter for fitting and adjustment of urinary device; C67.9 Malignant neoplasm of bladder, unspecified; Z48.816 Encounter for surgical aftercare following surgery on the genitourinary system | CPT/HCPCS: 99213 ==

== ENCOUNTER → 2019-08-13 11:43 | Outpatient (BNVA) | payer MEDICARE, SELFPAY | PROVIDERS: PCP Family Medicine; Referring Provider Family Medicine; Visit Provider Urology | DX: C67.9 Malignant neoplasm of bladder, unspecified (principal) | CPT/HCPCS: 99213 ==

== ENCOUNTER → 2019-09-03 07:47 | Outpatient (BNVA) | payer MEDICARE, SELFPAY | PROVIDERS: PCP Family Medicine; Referring Provider Family Medicine; Visit Provider Urology | DX: C67.9 Malignant neoplasm of bladder, unspecified (principal) | CPT/HCPCS: 51720; 81003; 99213; J9201 ==

== ENCOUNTER → 2019-09-10 10:30 | Outpatient (BNVA) | payer MEDICARE, SELFPAY | PROVIDERS: PCP Family Medicine; Referring Provider Family Medicine; Visit Provider Urology | DX: C67.9 Malignant neoplasm of bladder, unspecified (principal) | CPT/HCPCS: 51720; 81003; 99213; J9201 ==

== ENCOUNTER → 2019-09-17 10:57 | Outpatient (BNVA) | payer MEDICARE, SELFPAY | PROVIDERS: PCP Family Medicine; Referring Provider Family Medicine; Visit Provider Urology | DX: C67.9 Malignant neoplasm of bladder, unspecified (principal) | CPT/HCPCS: 51720; 81003; 99212; J9201 ==

== ENCOUNTER → 2019-09-24 09:38 | Outpatient (BNVA) | payer MEDICARE, SELFPAY | PROVIDERS: PCP Family Medicine; Referring Provider Family Medicine; Visit Provider Urology | DX: C67.9 Malignant neoplasm of bladder, unspecified (principal) | CPT/HCPCS: 51720; 81003; 99213; J9201 ==

== ENCOUNTER → 2019-09-30 10:58 | Outpatient (BNVA) | payer MEDICARE, SELFPAY | PROVIDERS: PCP Family Medicine; Referring Provider Family Medicine; Visit Provider Nurse Practitioner Gerontology | DX: C67.9 Malignant neoplasm of bladder, unspecified (principal) | CPT/HCPCS: 51720; 81003; 99213; J9201 ==

== ENCOUNTER → 2019-10-08 10:03 | Outpatient (BNVA) | payer MEDICARE, SELFPAY | PROVIDERS: PCP Family Medicine; Referring Provider Family Medicine; Visit Provider Urology | DX: C67.9 Malignant neoplasm of bladder, unspecified (principal) | CPT/HCPCS: 51720; 81003; 99212; J9201 ==

== ENCOUNTER → 2019-11-26 09:24 | Outpatient (BNVA) | payer MEDICARE, SELFPAY | PROVIDERS: PCP Family Medicine; Referring Provider Family Medicine; Visit Provider Urology | DX: C67.8 Malignant neoplasm of overlapping sites of bladder (principal) | CPT/HCPCS: 52000; 81003; 99213 ==

== ENCOUNTER 2019-12-10 03:17 | Outpatient (CLI) | payer MEDICARE, SELFPAY ==
[2019-12-11 20:39] LABS: COVID-19 RT-PCR Result NEGATIVE (Negative)
== END 2019-12-10 03:37 ==
PROVIDERS: PCP Family Medicine; Visit Provider Urology
DX: Z11.59 Encounter for screening for other viral diseases (principal)
CPT/HCPCS: U0003

== ENCOUNTER 2019-12-13 09:13 | Day surgery (SDC) | payer MEDICARE, SELFPAY ==
[2019-12-13] VITALS (8 sets, daily range): BP systolic 74–147; BP diastolic 35–83; PULSE 47–56; RESP 11–24; TEMP 36.3–36.5; O2SAT 95–98
[2019-12-13] MEDS: Lactated Ringers 1,000 ML 80 ML IV (10:14)
--- NOTE | 2019-12-13 10:18 | W.PM.HP.N ---
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 There was no involvement of the muscularis, but some areas of tumor were suspicious for lamina propria invasion. He was treated with intravesical gemcitabine. On his first surveillance cystoscopy, we identified recurrent papillary bladder lesions. He presents now for transurethral resection and instillation of mitomycin-C into the bladder. Review of Systems Narrative: No fevers or chills No vision change or dysphasia Hx Diabetes No shortness of breath, cough or hemoptysis No chest pain or palpitations No nausea, vomiting, hepatitis, ulcers, jaundice, diarrhea or constipation No seizures, strokes or peripheral neuropathy No anemia. On anticoagulants routinely No gout [facility] Medical History Bladder cancer Bucket handle tear of lateral meniscus of knee (02/27/07) left knee; repaired History of tobacco use Kidney stone Kidney stone Surgical History Fracture, Open Treatment (~1969) RIGHT LEG History of appendectomy History of arthroscopy of knee Dr. Sweet; left knee; repair medial meniscus History of open reduction and internal fixation (ORIF) procedure 1969 Right leg Open Carpal Tunnel release LEFT Status post bunionectomy Bilateral Status post carpal tunnel release Family History Mother , 97 Essential hypertension Hyperlipidemia Stroke Father , 93 Cancer Sister Essential hypertension Brother No problems noted. Maternal Grandfather , 67 No problems noted. Paternal Grandfather , 80+ Myocardial infarction Stroke Maternal Grandmother , 50 No problems noted. Paternal Grandmother , 50? No problems noted. Son No problems noted. Son No problems noted. Other History of tobacco use Social History Smoking/Tobacco Use Status: Former Tobacco Use Quit Date: 08/29/04 Second Hand Exposure: Yes Alcohol Intake: current Alcohol Intake frequency: a few times a week Alcohol type: wine Drug use: Never Substance use type: does not use Caregiver/Support person: No Household members: spouse Housing: house Communication Needs: Corrective Lenses Do you need help understanding health information?: Rarely Pets and animals: No Sexually active: Yes Do you think of yourself as: straight/heterosexual Current gender identity: male What is your relationship status?: How often do you talk on the phone with friends or family?: three or more times per week How often do you get together with friends or relatives?: twice per week How often do you attend congregational or sabianism services?: decline to answer Do you belong to any clubs or organized social groups?: yes Panel score (0-1 are the most socially isolated patients): 3 What type of physical activity do you participate in: none Frequency: does not exercise Debora/Sikh: L[employer] Day Special debora needs: No Seatbelt use: never Helmet use: No 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 Meds Home Medications and Allergies Home Medications Medication Instructions Recorded Confirmed Type cholecalciferol (vitamin D3) 1,000 unit PO DAILY 09/02/12 12/13/19 History omega-3 fatty acids-fish oil 1 ea PO DAILY #270 09/02/12 12/13/19 History amlodipine 5 mg tablet 10 mg PO HS #90 tab-cap 06/09/19 12/13/19 History dofetilide 250 mcg capsule 250 mcg PO BID 06/09/19 12/13/19 History latanoprost 0.005 % eye drops 1 drp OPHTHALMIC HS drp 06/09/19 12/13/19 History metoprolol succinate 25 mg 25 mg PO DAILY #90 tab-cap 06/09/19 12/13/19 History tablet,extended release 24 hr rivaroxaban 20 mg tablet 20 mg PO DAILY #90 tab-cap 07/12/19 12/13/19 Rx tramadol 50 mg tablet 50 mg PO Q8H PRN #15 tab 08/06/19 12/13/19 Rx lisinopril 20 mg tablet 20 mg PO HS #90 tab 10/13/19 12/13/19 Rx pravastatin 20 mg tablet 20 mg PO HS #90 tab 10/13/19 12/13/19 Rx Allergies Allergy/AdvReac Type Severity Reaction Status Date / Time No Known Allergies Allergy Verified 12/13/19 09:40 Exam Const General: cooperative, comfortable and no acute distress Neck Neck: supple Resp Effort & Inspection: normal respiratory effort Auscultation: clear to auscultation bilaterally Cardio Rate: regular rate Rhythm: regular rhythm GI Palpation: soft and no masses Neuro General: patient alert, patient awake and patient oriented x3 Results Last Vital Signs Temp 36.5 C 12/13/19 09:27 Pulse 56 L 12/13/19 09:27 Resp 17 12/13/19 09:27 BP 121/67 12/13/19 09:27 Pulse Ox 97 12/13/19 09:27 COVID-19 Screening Have you,or household,traveled outside [place] in last 14 days?: Yes Had IN PERSON contact w/suspected or confirmed C-19 person: No
[2019-12-13] MEDS: Lidocaine 2% Jelly 6 ML SYR (12:09)
--- NOTE | 2019-12-13 12:14 | BLADDER_PTH ---
PATIENT: Tan Squires JR LOC: [facility] U#:[id number] AGE/SX: 79/M ROOM: RE12/13/[address]: Amaury Deutsch MD : [id number] BED: DIS: 12/13/2019 SPEC #: [id number] RECD: 12/13/19 17:50 STATUS: SALLY REQ #: [id number] MYCHAL: 12/13/19 12:[address]: Amaury Deutsch DEPT: Surgical Specimen RECD BY: Rosita Mar ENTERED: 12/13/19 17:50 SP TYPE: Bladder OTHR DR: Marcos Morales MD Tissues: 1 - BLADDER BIOPSY Procedures: GROSS AND MICRO LEVEL 5 Comments: [id number]
--- NOTE | 2019-12-13 12:25 | W.PM.DSUDISC ---
Discharge Plan Disposition Patient Disposition: HOME Condition: Stable Discharge Details Reason For Visit: bladder cancer Attending Provider: Amaury Deutsch Primary Care Provider: Marcos Morales Home Meds and New Rx's Prescriptions: No Action tramadol 50 mg tablet 50 mg PO Q8H PRN (Reason: pain) Qty: 15 RF: 0 cholecalciferol (vitamin D3) 1,000 UNIT capsule 1,000 unit PO DAILY RF: 0 omega-3 fatty acids-fish oil 1 EACH capsule 1 ea PO DAILY Qty: 270 RF: 4 dofetilide 250 mcg capsule 250 mcg PO BID RF: 0 amlodipine 5 mg tablet 10 mg PO HS Qty: 90 RF: 4 latanoprost 0.005 % drops 1 drp Ophthalmic HS RF: 0 metoprolol succinate 25 mg tablet extended release 24 hr 25 mg PO DAILY Qty: 90 RF: 4 Xarelto 20 mg tablet 20 mg PO DAILY Qty: 90 RF: 4 lisinopril 20 mg tablet 20 mg PO HS Qty: 90 RF: 3 pravastatin 20 mg tablet 20 mg PO HS Qty: 90 RF: 3 Discharge Instructions Additional Instructions: Leave Mitomycin C clamped in bladder for 1 to 2 hours then unclamp, drain and remove renee Followup 2 weeks for pathology results (can be done by phone if pt prefers) Followup appt will depend on pathology May restart Xaralto on 12/15 Activity:: Activity as Tolerated Shower/Bathe:: 24 hours Diet:: As Tolerated Discharge Orders Discharge Orders: Discharge Order (Routine); Ordered 12/13/19 Ordered By: Amaury Deutsch DS: Diagnosis Discharge Diagnosis (1) Bladder cancer: Status: Acute
--- NOTE | 2019-12-13 12:30 | ROE_ITS ---
Date of service: 12/13/19 Time of Service: 12:30 Operative Note Operative Note DATE OF PROCEDURE: 12/13/19 PRE-OP DIAGNOSIS: Bladder cancer POST-OP DIAGNOSIS: same PROCEDURE: Cystoscopy, TUR Bladder Tumor, Instillation of Mitomycin C into bladder SURGEON: Amaury Deutsch ANESTHESIA: spinal ESTIMATED BLOOD LOSS: 50 PATHOLOGY: other (Bladder tumor) COMPLICATIONS: None Patient was transported to: PACU Patient's condition: stable Indications: This is a 79-year-old gentleman who was previously seen for gross hematuria. He was found to have a bladder stone as well has a bladder mass. 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 There is no involvement of the muscle, but focally, there was concern for involvement of the lamina propria. He was treated with an induction series of intravesical gemcitabine. On surveillance cystoscopy, we found 2 small areas of recurrence. He presents for transurethral resection and possible instillation of mitomycin-C into the bladder. Findings: small papillary tumors (< 2 cm) on left trigone and right lateral bladder neck Procedure Description: The patient was brought to the operating room on 12/13/2019. He was given preoperative antibiotics. After successful induction of spinal anesthesia, he was placed in the dorsal lithotomy position. His genitalia is prepped and draped. The urethral meatus was dilated up to a size 28 [place] Island[place] using Tico sounds. We then passed a 26 [place] resectoscope sheath through the urethra into the bladder. The bladder was inspected with a 30 degree lens. Both ureteral orifices appeared normal. Adjacent to the left ureteral orifice, there was a papillary lesion that extended across the trigone. This area measured less than 2 cm in largest dimension. A separate area on the right lateral wall of the bladder just within the bladder neck also showed papillary lesions. Again, this area measured less than 2 cm. We utilized bipolar cautery and an Iglesius resectoscope to remove all visible tumor. The base of the resection site was cauterized using the coagulation current. All resected tissue was evacuated and sent to pathology for permanent section. Once hemostasis had been obtained, a 16 [place] Island[place] Diaz catheter was passed through the urethra into the bladder. The bladder was drained and the catheter balloon was inflated with 10 cc of sterile water. A 40 mL solution containing 40 mg of mitomycin-C was then instilled through the catheter into the bladder. The catheter was then clamped leaving the mitomycin- C in place. We will plan on draining the bladder and removing the catheter in approximately 1 hour. The patient tolerated this procedure well with no complications. He was taken to the recovery room in stable condition.
[2019-12-13] MEDS: Phenazopyridine 200 MG TAB PO (13:32)
== END 2019-12-13 14:25 | disposition home or self-care (01) ==
PROVIDERS: PCP Family Medicine; Visit Provider Urology
PROC: 0TBB8ZZ Excision of Bladder, Via Natural or Artificial Opening Endoscopic (ICD-10-PCS; CPT 52234; principal; 2019-12-13 12:00)
PROC: (CPT 52234; 2019-12-13 12:00)
DX: C67.8 Malignant neoplasm of overlapping sites of bladder (principal); E11.9 Type 2 diabetes mellitus without complications; Z79.899 Other long term (current) drug therapy
CPT/HCPCS: 52234; 51720; 88305; NC; 88307; J0690

== ENCOUNTER → 2019-12-30 09:48 | Outpatient (BNVA) | payer MEDICARE, SELFPAY | PROVIDERS: PCP Family Medicine; Referring Provider Family Medicine; Visit Provider Urology | DX: C67.8 Malignant neoplasm of overlapping sites of bladder (principal) | CPT/HCPCS: 99213; 99442 ==

== ENCOUNTER → 2020-01-13 12:29 | Outpatient (BNVA) | payer MEDICARE, SELFPAY | PROVIDERS: PCP Family Medicine; Referring Provider Family Medicine; Visit Provider Nurse Practitioner Gerontology | DX: N39.0 Urinary tract infection, site not specified (principal); C67.8 Malignant neoplasm of overlapping sites of bladder; Z53.09 Procedure and treatment not carried out because of other contraindication | CPT/HCPCS: 81003; 99213 ==

== ENCOUNTER 2020-01-13 12:53 | Outpatient (REF) | payer MEDICARE, SELFPAY | END 2020-01-13 13:13 | LOC: LBN 12:53 | PROVIDERS: PCP Family Medicine; Visit Provider Nurse Practitioner Gerontology | DX: N39.0 Urinary tract infection, site not specified (principal) | CPT/HCPCS: 87077; 87086; 87186 ==

== ENCOUNTER → 2020-01-20 08:17 | Outpatient (BNVA) | payer MEDICARE, SELFPAY | PROVIDERS: PCP Family Medicine; Referring Provider Family Medicine; Visit Provider Nurse Practitioner Gerontology | DX: C67.8 Malignant neoplasm of overlapping sites of bladder (principal) | CPT/HCPCS: 51720; 81003; 99213; J9201 ==

== ENCOUNTER → 2020-01-27 09:19 | Outpatient (BNVA) | payer MEDICARE, SELFPAY | PROVIDERS: PCP Family Medicine; Referring Provider Family Medicine; Visit Provider Nurse Practitioner Gerontology | DX: C67.8 Malignant neoplasm of overlapping sites of bladder (principal) | CPT/HCPCS: 51720; 81003; 99213; J9201 ==

== ENCOUNTER → 2020-02-03 09:10 | Outpatient (BNVA) | payer MEDICARE, SELFPAY | PROVIDERS: PCP Family Medicine; Visit Provider Nurse Practitioner Gerontology | DX: C67.8 Malignant neoplasm of overlapping sites of bladder (principal) | CPT/HCPCS: 51720; 81003; 99213; J9201 ==

== ENCOUNTER → 2020-02-10 10:03 | Outpatient (BNVA) | payer MEDICARE, SELFPAY | PROVIDERS: PCP Family Medicine; Visit Provider Nurse Practitioner Gerontology | DX: C67.8 Malignant neoplasm of overlapping sites of bladder (principal) | CPT/HCPCS: 51720; 81003; 99213; J9201 ==

== ENCOUNTER → 2020-02-18 10:48 | Outpatient (BNVA) | payer MEDICARE, SELFPAY | PROVIDERS: PCP Family Medicine; Visit Provider Urology | DX: C67.8 Malignant neoplasm of overlapping sites of bladder (principal) | CPT/HCPCS: 51720; 81003; 99213; J9201 ==

== ENCOUNTER → 2020-02-23 11:37 | Outpatient (BNVA) | payer MEDICARE, SELFPAY | PROVIDERS: PCP Family Medicine; Referring Provider Family Medicine; Visit Provider Nurse Practitioner Gerontology | DX: R31.0 Gross hematuria (principal); C67.8 Malignant neoplasm of overlapping sites of bladder; N39.0 Urinary tract infection, site not specified; B95.7 Other staphylococcus as the cause of diseases classified elsewhere | CPT/HCPCS: 81003; 99213 ==

== ENCOUNTER 2020-02-23 15:34 | Outpatient (REF) | payer MEDICARE, SELFPAY | END 2020-02-23 15:54 | LOC: LBN 15:34 | PROVIDERS: PCP Family Medicine; Visit Provider Nurse Practitioner Gerontology | DX: N39.0 Urinary tract infection, site not specified (principal); R31.9 Hematuria, unspecified | CPT/HCPCS: 87077; 87086 ==

== ENCOUNTER → 2020-02-28 10:32 | Outpatient (BNVA) | payer MEDICARE, SELFPAY | PROVIDERS: PCP Family Medicine; Referring Provider Family Medicine; Visit Provider Nurse Practitioner Gerontology | DX: C67.8 Malignant neoplasm of overlapping sites of bladder (principal) | CPT/HCPCS: 51720; 81003; 99213; J9201 ==

== ENCOUNTER 2020-04-24 12:45 | Outpatient (REF) | payer MEDICARE, SELFPAY ==
--- NOTE | 2020-04-24 13:15 | PAPNONF_PTH ---
PATIENT: Tan Squires JR LOC: [facility] U#:[id number] AGE/SX: 79/M ROOM: RE04/24/[address]: Amaury Deutsch MD : 1940 BED: DIS: 04/24/2020 SPEC #: [id number] RECD: 04/24/20 17:52 STATUS: SALLY REQ #: [id number] MYCHAL: 04/24/20 13:[address]: Amaury Deutsch DEPT: [facility] Cytology RECD BY: Rosita Mar ENTERED: 04/24/20 17:53 SP TYPE: IRMA JAQUEZ DR: Marcos Morales MD Tissues: 1 - BODY FLUID CYTO(SPUTUM/URINE)[facility] Procedures: BODY FLUID CYTO(URINE/SPUTUM) Comments: [id number] (TOTAL VOLUME = 60 ml's) (30 ml's URINE & 30 ml's CYTOLYT ADDED IN 2 CONTAINERS)
== END 2020-04-24 13:05 ==
LOC: LBN 12:45
PROVIDERS: PCP Family Medicine; Referring Provider Family Medicine; Visit Provider Urology
DX: C67.9 Malignant neoplasm of bladder, unspecified (principal)
CPT/HCPCS: 99213; 88104

== ENCOUNTER → 2020-04-24 12:45 | Outpatient (BNVA) | payer MEDICARE, SELFPAY | PROVIDERS: PCP Family Medicine; Referring Provider Family Medicine; Visit Provider Urology | DX: C67.8 Malignant neoplasm of overlapping sites of bladder (principal) | CPT/HCPCS: 52000; 81003 ==

== ENCOUNTER 2020-07-12 14:29 | Outpatient (REF) | payer MEDICARE, SELFPAY ==
[2020-07-12 22:04] LABS: Anion Gap 6.6 mmol/L (3-11); BUN 20 mg/dL (7-18); CO2 28.4 mmol/L (21.0-32.0); CREATININE 0.9 mg/dL (0.70-1.30); Calcium 9.4 mg/dL (8.5-10.1); Calculated LDL 116 mg/dL (<100); Chloride 105 mmol/L (98-107); Cholesterol 195 mg/dL (<200); Glucose 96 mg/dL (74-106); HDL Cholesterol 41 mg/dL (40-60); Potassium 4.1 mmol/L (3.5-5.1); Sodium 140 mmol/L (136-145); Triglyceride 190 mg/dL (<150)
[2020-07-12 22:06] LABS: Hemoglobin A1C 5.7 % (<5.7)
== END 2020-07-12 14:30 | disposition home or self-care (01) ==
LOC: LBN 14:29
PROVIDERS: PCP Family Medicine; Visit Provider Emergency Medicine
DX: E11.9 Type 2 diabetes mellitus without complications (principal); I10 Essential (primary) hypertension
CPT/HCPCS: 80048; 80061; 83036

== ENCOUNTER → 2020-07-25 12:47 | Outpatient (BNVA) | payer MEDICARE, SELFPAY | PROVIDERS: PCP Family Medicine; Referring Provider Family Medicine; Visit Provider Urology | DX: C67.8 Malignant neoplasm of overlapping sites of bladder (principal); R31.9 Hematuria, unspecified; N39.0 Urinary tract infection, site not specified | CPT/HCPCS: 81003; 99212; 99213 ==

== ENCOUNTER 2020-07-25 19:15 | Outpatient (REF) | payer MEDICARE, SELFPAY | END 2020-07-25 19:16 | disposition home or self-care (01) | LOC: LBN 19:15 | PROVIDERS: PCP Family Medicine; Visit Provider Urology | DX: R31.9 Hematuria, unspecified (principal) | CPT/HCPCS: 87077; 87086; 87186 ==

== ENCOUNTER → 2020-08-04 10:50 | Outpatient (BNVA) | payer MEDICARE, SELFPAY | PROVIDERS: PCP Family Medicine; Referring Provider Family Medicine; Visit Provider Urology | DX: C67.8 Malignant neoplasm of overlapping sites of bladder (principal) | CPT/HCPCS: 52000; 81003; 87635; 99212 ==

== ENCOUNTER 2020-08-04 11:44 | Outpatient (CLI) | payer MEDICARE, SELFPAY ==
[2020-08-04 12:29] LABS: Source Nasal/Nares
[2020-08-04 15:38] LABS: COVID-19 PCR Negative (Negative)
== END 2020-08-04 11:45 | disposition home or self-care (01) ==
PROVIDERS: PCP Family Medicine; Visit Provider Urology
DX: Z20.822 Contact with and (suspected) exposure to COVID-19 (principal); Z01.818 Encounter for other preprocedural examination
CPT/HCPCS: 87635

== ENCOUNTER 2020-08-07 08:03 | Day surgery (SDC) | payer MEDICARE, SELFPAY ==
[2020-08-07 08:05] VITALS: BP 115/53; PULSE 55; RESP 18; TEMP 36.6; O2SAT 96
[2020-08-07] MEDS: Lactated Ringers 1,000 ML 80 ML IV (08:42)
--- NOTE | 2020-08-07 09:11 | W.PM.HP.N ---
Date of service: 08/07/20 Time of Service: 09:11 Assessment and Plan Assessment and plan (1) Bladder cancer: Status: Acute Assessment and plan: For cystoscopy, TURBT and instillation of Mitomycin C into bladder Qualifiers: Bladder location: overlapping sites Qualified Code(s): C67.8 - Malignant neoplasm of overlapping sites of bladder History of Present Illness History of Present Illness Chief Complaint: Bladder tumor Narrative: This is an 80-year-old gentleman who has a history of urothelial cell carcinoma of the bladder. He has received intravesical gemcitabine treatments. His tumors have been high-grade but noninvasive. He presents for surveillance cystoscopy. He is not seeing any gross hematuria. Last week's cystoscopy was canceled when we identified an E. coli urinary tract infection. He has completed his course of Keflex. When we accomplished the surveillance cystoscopy, we identified a small recurrent tumor. He presents for cystoscopy, TURBT and instillation of Mitomycin C. Review of Systems Narrative: No fevers or chills No vision change or dysphasia No diabetes or thyroid No shortness of breath, cough or hemoptysis No chest pain or palpitations No nausea, vomiting, hepatitis, ulcers, jaundice, diarrhea or constipation No seizures, strokes or peripheral neuropathy Stopped Xaralto 3 days ago No gout PFSH Medical History Bladder cancer Bucket handle tear of lateral meniscus of knee (02/27/07) left knee; repaired History of tobacco use Kidney stone Kidney stone Surgical History Fracture, Open Treatment (~1969) RIGHT LEG History of appendectomy History of arthroscopy of knee Dr. Sweet; left knee; repair medial meniscus History of open reduction and internal fixation (ORIF) procedure 1969 Right leg Open Carpal Tunnel release LEFT Status post bunionectomy Bilateral Status post carpal tunnel release Family History Mother , 97 Essential hypertension Hyperlipidemia Stroke Father , 93 Cancer Sister Essential hypertension Brother No problems noted. Maternal Grandfather , 67 No problems noted. Paternal Grandfather , 80+ Myocardial infarction Stroke Maternal Grandmother , 50 No problems noted. Paternal Grandmother , 50? No problems noted. Son No problems noted. Son No problems noted. Other History of tobacco use Social History (Updated 07/19/20 @ 09:02 by Lily Meyer) Smoking/Tobacco Use Status: Former Tobacco Use tobacco type: cigarettes Quit Date: 08/29/04 Second Hand Exposure: Yes Smoking risk assessment performed?: Yes Alcohol Intake: current Alcohol Intake frequency: a few times a week Alcohol type: wine Drug use: Never Substance use type: does not use Caregiver/Support person: No Household members: spouse Housing: house Communication Needs: Corrective Lenses Do you need help understanding health information?: Rarely Pets and animals: No Sexually active: Yes Do you think of yourself as: straight/heterosexual Current gender identity: male What is your relationship status?: How often do you talk on the phone with friends or family?: three or more times per week How often do you get together with friends or relatives?: twice per week How often do you attend voodoo or judaism services?: decline to answer Do you belong to any clubs or organized social groups?: yes Panel score (0-1 are the most socially isolated patients): 3 What type of physical activity do you participate in: none Frequency: does not exercise Debora/Catholic: Congregation Special debora needs: No Seatbelt use: never Helmet use: No Drive intox or ride w/intox driver starting gate: No Additional Social history: Unable to ask, did pre op. Meds Allergies and Home Medications Allergies Allergy/AdvReac Type Severity Reaction Status Date / Time No Known Allergies Allergy Verified 08/07/20 08:23 Home Medications Medication Instructions Recorded Confirmed Type cholecalciferol (vitamin D3) 1,000 unit PO DAILY 09/02/12 08/07/20 History omega-3 fatty acids-fish oil 1 ea PO DAILY #270 09/02/12 08/07/20 History amlodipine 5 mg tablet 10 mg PO HS #90 tab-cap 06/09/19 08/07/20 History dofetilide 250 mcg capsule 250 mcg PO BID 06/09/19 08/07/20 History latanoprost 0.005 % eye drops 1 drp OPHTHALMIC HS drp 06/09/19 08/07/20 History metoprolol succinate 25 mg 25 mg PO DAILY #90 tab-cap 06/09/19 08/07/20 History tablet,extended release 24 hr rivaroxaban 20 mg tablet 20 mg PO DAILY #90 tab-cap 07/12/19 08/04/20 Rx lisinopril 20 mg tablet 20 mg PO HS #90 tab 10/13/19 08/07/20 Rx pravastatin 20 mg tablet 20 mg PO HS #90 tab 10/13/19 08/07/20 Rx Exam Const General: cooperative, healthy appearing and comfortable Neck Neck: supple Resp Effort & Inspection: normal respiratory effort Auscultation: clear to auscultation bilaterally Cardio Rate: regular rate Rhythm: regular rhythm GI Palpation: soft and no masses Neuro General: patient alert, patient awake and patient oriented x3 Results Last Vital Signs Temp 36.6 C 08/07/20 08:05 Pulse 55 L 08/07/20 08:05 Resp 18 08/07/20 08:05 BP 115/53 L 08/07/20 08:05 Pulse Ox 96 08/07/20 08:05 COVID-19 Screening Have you, or household traveled for leisure in last 14 days?: No Had IN PERSON contact w/suspected or confirmed C-19 person: No
--- NOTE | 2020-08-07 09:53 | W.ANESPRE ---
General Info Date of Service Date Performed: 08/07/20 Height: 5 ft 9 in Weight: 99.1 kg Body Mass Index (BMI): 32.2 Surgical Procedure: Operation Date: 08/07/20 09:40 Proposed Procedures Side Surgeon p Transurethral Resection Bladder Tumor Amaury Deutsch MD s INSTALLATION MITOMYCIN Amaury Deutsch MD Meds Allergies and Home Medications Allergies Allergy/AdvReac Type Severity Reaction Status Date / Time No Known Allergies Allergy Verified 08/07/20 08:23 Home Medication Medication Instructions Recorded cholecalciferol (vitamin D3) 1,000 unit PO DAILY 09/02/12 omega-3 fatty acids-fish oil 1 ea PO DAILY #270 09/02/12 amlodipine 5 mg tablet 10 mg PO HS #90 tab-cap 06/09/19 dofetilide 250 mcg capsule 250 mcg PO BID 06/09/19 latanoprost 0.005 % eye drops 1 drp OPHTHALMIC HS drp 06/09/19 metoprolol succinate 25 mg 25 mg PO DAILY #90 tab-cap 06/09/19 tablet,extended release 24 hr rivaroxaban 20 mg tablet 20 mg PO DAILY #90 tab-cap 07/12/19 lisinopril 20 mg tablet 20 mg PO HS #90 tab 10/13/19 pravastatin 20 mg tablet 20 mg PO HS #90 tab 10/13/19 Current Visit Medications: Current Medications Generic Name Dose Route Start Last Admin Trade Name Freq PRN Reason Stop Dose Admin Mitomycin 40 mg/ Sodium 0 mg 08/07/20 06:00 Chloride 40 ml BLADIN 08/07/20 16:00 TODAY LEI Ringer's Solution 1,000 mls @ 80 mls/hr 08/07/20 06:00 08/07/20 08:42 IV 09/03/20 23:59 80 mls/hr INFUSION LEI Administration Cefazolin Sodium/Dextrose 2 gm in 50 mls @ 100 mls/hr 08/07/20 06:00 Ancef Duplex IVPB 08/07/20 16:00 PREOP LEI IV Miscellaneous Supplies 1 each 08/07/20 06:00 Iv Access IV 09/03/20 23:59 DIRECTED LEI Sodium Chloride 0 ml 08/07/20 06:00 Normal Saline Flush 10 Ml Syr IV 09/03/20 23:59 PRN PRN Sodium Chloride 0 ml 08/07/20 06:00 Normal Saline 10 Ml Vial IJ 09/03/20 23:59 DIRECTED PRN Sterile Water 0 ml 08/07/20 06:00 Water,Injection,Sterile 10 Ml Vial IJ 09/03/20 23:59 DIRECTED PRN PFSH Active Problems Active Problems: Problem Status Onset Code Bladder cancer C67.9 Sexual function problem F52.9 Paroxysmal atrial fibrillation 09/14/15 I48.0 Overweight E66.3 Hyperlipidemia E78.5 History of tobacco use Z87.891 Family history of malignant neoplasm of prostate Z80.42 Essential hypertension I10 Diabetes mellitus E11.9 Hematuria R31.9 BPH w urinary obs/LUTS N40.1, N13.8 Bladder mass N32.89 Bladder stone N21.0 Medical History Medical History Bladder cancer Bucket handle tear of lateral meniscus of knee (02/27/07) left knee; repaired History of tobacco use Kidney stone Kidney stone Surgical History Surgical History Fracture, Open Treatment (~1969) RIGHT LEG History of appendectomy History of arthroscopy of knee Dr. Sweet; left knee; repair medial meniscus History of open reduction and internal fixation (ORIF) procedure 1969 Right leg Open Carpal Tunnel release LEFT Status post bunionectomy Bilateral Status post carpal tunnel release Tobacco Smoking/Tobacco Use Status: Former Tobacco Use Passive smoking exposure: Yes Second hand exposure: Yes Alcohol Alcohol Intake: current Alcohol intake frequency: a few times a week Alcohol type: wine Substance Use Substance use: Never Substance use type: does not use Vital Signs and Lab Results Vital Signs Most Recent Vital Signs in EMR: Most Recent Vital Signs Temp Pulse Resp BP Pulse Ox 36.6 C 55 L 18 115/53 L 96 08/07/20 08:05 08/07/20 08:05 08/07/20 08:05 08/07/20 08:05 08/07/20 08:05 Lab Results Blood Type / Crossmatch: No Data to Display Complete Blood Count: White Blood Count 8.33 k/cumm (4.4-10.8) 08/06/19 06:50 08/06/19 Red Blood Count 4.54 m/cumm (4.50-6.00) 08/06/19 06:50 08/06/19 Hemoglobin 14.1 g/dL (13.5-17.5) 08/06/19 06:50 08/06/19 Hematocrit 41.7 % (40.0-50.0) 08/06/19 06:50 08/06/19 Platelet Count 228 x1000/uL (130-400) 08/06/19 06:50 08/06/19 Complete Metabolic Panel: Sodium Level 140 mmol/L (136-145) 07/12/20 12:05 07/12/20 Potassium Level 4.1 mmol/L (3.5-5.1) 07/12/20 12:05 07/12/20 Chloride Level 105 mmol/L (98-107) 07/12/20 12:05 07/12/20 Carbon Dioxide Level 28.4 mmol/L (21.0-32.0) 07/12/20 12:05 07/12/20 Blood Urea Nitrogen 20 mg/dL (7-18) H 07/12/20 12:05 07/12/20 Creatinine 0.9 mg/dL (0.70-1.30) 07/12/20 12:05 07/12/20 Magnesium Level 1.9 mg/dL (1.8-2.4) 06/07/16 08:24 06/07/16 Calcium Level 9.4 mg/dL (8.5-10.1) 07/12/20 12:05 07/12/20 Albumin 3.7 g/dL (3.4-5.0) 03/06/12 08:38 03/06/12 Glucose Level 96 mg/dL (74-106) 07/12/20 12:05 07/12/20 Hemoglobin A1c 5.7 % (<5.7) 07/12/20 12:05 07/12/20 Liver Function Panel: Alanine Aminotransferase (ALT/SGPT) 30 U/L (12-78) 03/06/12 08:38 03/06/12 Aspartate Amino Transf (AST/SGOT) 24 U/L (15-37) 03/06/12 08:38 03/06/12 Coagulation Panel: No Data to Display Cardiac Panel: No Data to Display Arterial Blood Gas: No Data to Display Venous Blood Gas: No Data to Display Pancreas Panel: No Data to Display Thyroid Panel: Thyroid Stimulating Hormone (TSH) 1.89 uIU/mL (0.358-3.74) 10/16/15 15:35 10/16/15 Infectious Disease: Coronavirus (COVID-19)(PCR) Negative (Negative) 08/04/20 11:52 08/04/20 Coronavirus 2019 Source Nasal/nares 08/04/20 11:52 08/04/20 Blood Cultures: No Data to Display Toxicology Panel: No Data to Display Imaging and Studies Imaging and Studies Echocardiogram Summary:: Systolic function was severely reduced. The estimated ejection fraction was 20-25%. Diffuse hypokinesis. Anesthesia Assessment and Plan Anesthesia History Personal History: No History of Anesthesia Complications Family History: No Family History of Anesthesia Complications Exercise Tolerance Exercise Tolerance: Metabolic Equivalents>4 Pertinent Negatives Pertinent Negatives: No Symptoms of GERD, No Major Pulmonary Symptoms or Complaints (+ snores ) and Other (Afib on xaerelto last took 5/7 am ) Cardiac & Pulmonary Exam Cardiac Exam: Other (Afib) Pulmonary Exam: Clear Bilateral Breath Sounds Airway Exam Known Difficult Airway: No Mallampati Class: 1 Mouth Opening: Normal (> 3cm) Thyromental Distance: Greater than 3 cm Neck Range of Motion: Full ROM Neck Circumference: Normal Teeth Condition: Normal Dentition ASA Classification ASA Score: ASA 3 Emergency Case?: No NPO Status NPO Status: NPO Clears >2 hours, Solids >8 hours Anesthesia Plan Anesthesia Technique: General Anesthesia Airway Planned: Natural Airway Monitors Used: Standard Monitors
[2020-08-07 10:05] VITALS: BMI 32.2
[2020-08-07] MEDS: ceFAZolin 2 GM/50 ML BAG IVPB (10:26)
--- NOTE | 2020-08-07 10:48 | BLADDER_PTH ---
PATIENT: Tan Squires JR LOC: [facility] U#:[id number] AGE/SX: 80/M ROOM: RE08/07/[address]: Amaury Deutsch MD : 1940 BED: DIS: 08/07/2020 SPEC #: [id number] RECD: 08/07/20 12:40 STATUS: SALLY REQ #: [id number] MYCHAL: 08/07/20 10:[address]: Amaury Deutsch DEPT: Surgical Specimen RECD BY: Rosita Mar ENTERED: 08/07/20 12:41 SP TYPE: Bladder OTHR DR: Marcos Morales MD Tissues: 1 - BLADDER BIOPSY Procedures: GROSS AND MICRO LEVEL 4 Comments: [id number]
[2020-08-07] MEDS: Lidocaine 2% Jelly 6 ML SYR (10:50)
--- NOTE | 2020-08-07 10:57 | W.PM.DSUDISC ---
Discharge Plan Disposition Patient Disposition: HOME Condition: Stable Discharge Details Reason For Visit: BLADDER CA Attending Provider: Amaury Deutsch Primary Care Provider: Marcos Morales Home Meds and New Rx's Prescriptions: No Action cholecalciferol (vitamin D3) 1,000 UNIT capsule 1,000 unit PO DAILY RF: 0 omega-3 fatty acids-fish oil 1 EACH capsule 1 ea PO DAILY Qty: 270 RF: 4 dofetilide 250 mcg capsule 250 mcg PO BID RF: 0 amlodipine 5 mg tablet 10 mg PO HS Qty: 90 RF: 4 latanoprost 0.005 % drops 1 drp Ophthalmic HS RF: 0 metoprolol succinate 25 mg tablet extended release 24 hr 25 mg PO DAILY Qty: 90 RF: 4 Xarelto 20 mg tablet 20 mg PO DAILY Qty: 90 RF: 4 lisinopril 20 mg tablet 20 mg PO HS Qty: 90 RF: 3 pravastatin 20 mg tablet 20 mg PO HS Qty: 90 RF: 3 Discharge Instructions Additional Instructions: OK to restart Xaralto 08/08/2020 Followup 2 weeks to review pathology results and schedule BCG instillations Activity:: Activity as Tolerated Shower/Bathe:: 24 hours Diet:: As Tolerated Discharge Orders Discharge Orders: Discharge Order (Routine); Ordered 08/07/20 Ordered By: Amaury Deutsch DS: Diagnosis Discharge Diagnosis (1) Bladder cancer: Status: Acute
--- NOTE | 2020-08-07 11:02 | W.ANESPOSTOP ---
Postoperative Evaluation Date, Time and Location Date Performed: 08/07/20 Time Performed: 11:02 Patient Location: Day Surgery Unit Vital Signs Most Recent Imported Vital Signs: Most Recent Vital Signs Temp Pulse Resp BP Pulse Ox 36.6 C 55 L 18 115/53 L 96 08/07/20 08:05 08/07/20 08:05 08/07/20 08:05 08/07/20 08:05 08/07/20 08:05 Most Recent Manually Entered Vital Signs: Adult Blood Pressure: 89/55 Heart Rate: 54 Respirations: 16 Oxygen Saturation (%): 95 Temperature (C): 36.2 C Pain Score (0-10 Scale): 0 Assessment Mental Status: Awake (Alert & Oriented to Patient Baseline) Airway and Respiratory Function: Patent airway with normal (patient baseline) respiratory exam Cardiovascular Function: Hemodynamically Stable Hydration Status: Adequately Hydrated Nausea & Vomiting: No Nausea or Vomiting Pain: Pt. Denies Any Pain Peripheral Nerve Block: Patient did not receive a nerve block
[2020-08-07 11:03] VITALS: BP 85/52; PULSE 57; RESP 16; TEMP 36.2; O2SAT 94
[2020-08-07 11:05] VITALS: PULSE 54; RESP 16; TEMPC 36.2
[2020-08-07 11:06] VITALS: O2SAT 95
--- NOTE | 2020-08-07 11:10 | ROE_ITS ---
Date of service: 08/07/20 Time of Service: 11:10 Operative Note Operative Note DATE OF PROCEDURE: 08/07/20 PRE-OP DIAGNOSIS: Bladder cancer POST-OP DIAGNOSIS: same PROCEDURE: cystoscopy with transurethral resection of bladder tumor, instillation of Mitomycin C into bladder SURGEON: Amaury Deutsch ANESTHESIA TYPE: General:No Airway Refer to Anesthesia Record ESTIMATED BLOOD LOSS: 10 PATHOLOGY: other (bladder tumor) COMPLICATIONS: None Patient was transported to: same day Patient's condition: stable Implants: 16 [place] Diaz catheter with 10 cc in the balloon Indications: Is an 80-year-old gentleman who has a history of urothelial cell carcinoma of the bladder. His tumors have been high-grade but there has been no muscle invasion. He has been treated with intravesical gemcitabine. On surveillance cystoscopy, he was identified as having a papillary lesion up towards the dome of the bladder. He presents for transurethral resection and instillation of mitomycin-C. Findings: small papillary tumor anterior bladder wall with surrounding erythema Procedure Description: The patient was brought to the operating room on 08/07/2020. He was given preoperative IV antibiotics. After successful induction of general anesthesia, he was placed in the dorsal lithotomy position. Genitalia was prepped and draped. 2% Xylocaine jelly was instilled into the urethra. A 26 [place] resectoscope sheath was passed through the urethra into the bladder. The urethra and bladder were inspected with a 30 degree lens. The pendulous, bulbous and urethra appeared normal with no strictures. The prostatic urethra showed some lateral lobe enlargement and a slight median lobe. No papillary lesions were seen on the prostatic mucosa. The bladder neck was entered and the bladder mucosa was inspected. Both u reteral orifice ease appeared normal. No blood was seen coming from either side. Up toward the dome of the bladder, there was a less than 2 cm papillary lesion with some surrounding erythema. We used an [employer] resectoscope and bipolar cautery to resect the papillary area as well as some of the erythematous surrounding area. All resected tissue was evacuated and sent to pathology for permanent section. The resection sites were cauterized using the coagulation current. Once hemostasis had been obtained, the resectoscope was removed and a 16 [place] Diaz catheter was passed through the urethra into the bladder. The catheter balloon was inflated with 10 cc of sterile water. A solution of 40 mg of mitomycin-C mixed in 40 mL of saline was then instilled into the bladder. The catheter was clamped leaving the mitomycin in place. The patient tolerated this procedure well with no complications.
[2020-08-07 11:28] VITALS: BP 99/59; PULSE 49; RESP 18; TEMP 36; O2SAT 95
[2020-08-07] MEDS: Phenazopyridine 200 MG TAB PO (11:29)
[2020-08-07 11:32] VITALS: BP 89/55
== END 2020-08-07 08:04 | disposition home or self-care (01) ==
PROVIDERS: PCP Family Medicine; Visit Provider Urology
PROC: 0TBB8ZZ Excision of Bladder, Via Natural or Artificial Opening Endoscopic (ICD-10-PCS; CPT 52234; principal; 2020-08-07 09:30)
PROC: (CPT 52234; 2020-08-07 09:30)
DX: C67.1 Malignant neoplasm of dome of bladder (principal); I48.0 Paroxysmal atrial fibrillation; E78.5 Hyperlipidemia, unspecified; Z87.891 Personal history of nicotine dependence; E11.9 Type 2 diabetes mellitus without complications
CPT/HCPCS: 52234; 51720; 88305; J0690; J2001; J2405; J9280

== ENCOUNTER → 2020-09-01 10:49 | Outpatient (BNVA) | payer MEDICARE, SELFPAY | PROVIDERS: PCP Emergency Medicine; Referring Provider Family Medicine; Visit Provider Urology | DX: C67.8 Malignant neoplasm of overlapping sites of bladder (principal) | CPT/HCPCS: 99213 ==

== ENCOUNTER → 2020-12-01 08:41 | Outpatient (BNVA) | payer MEDICARE, SELFPAY | PROVIDERS: PCP Emergency Medicine; Referring Provider Emergency Medicine; Visit Provider Urology | DX: C67.8 Malignant neoplasm of overlapping sites of bladder (principal) | CPT/HCPCS: 52000; 81003 ==

== ENCOUNTER 2020-12-12 01:57 | Outpatient (CLI) | payer MEDICARE, SELFPAY ==
[2020-12-12 12:26] LABS: Source Nasal/Nares
[2020-12-12 14:25] LABS: COVID-19 PCR Negative (Negative)
== END 2020-12-12 01:58 | disposition home or self-care (01) ==
LOC: LBO 01:57
PROVIDERS: PCP Emergency Medicine; Visit Provider Urology
DX: Z20.822 Contact with and (suspected) exposure to COVID-19 (principal)
CPT/HCPCS: 87635

== ENCOUNTER 2020-12-14 09:16 | Day surgery (SDC) | payer MEDICARE, SELFPAY ==
--- NOTE | 2020-12-14 06:50 | W.ANESPRE ---
General Info Date of Service Date Performed: 12/14/20 Height: 5 ft 9 in Weight: 102.965 kg Body Mass Index (BMI): 33.5 Surgical Procedure: Operation Date: 12/14/20 10:40 Proposed Procedures Side Surgeon p Transurethral Resection Bladder Tumor Amaury Deutsch MD s Bladder Installation MITOMYCIN C Amaury Deutsch MD Meds Allergies and Home Medications Allergies Allergy/AdvReac Type Severity Reaction Status Date / Time No Known Allergies Allergy Verified 12/14/20 09:31 Home Medication Medication Instructions Recorded cholecalciferol (vitamin D3) 1,000 unit PO DAILY 09/02/12 omega-3 fatty acids-fish oil 1 ea PO DAILY #270 09/02/12 amlodipine 5 mg tablet 10 mg PO HS #90 tab-cap 06/09/19 dofetilide 250 mcg capsule 250 mcg PO BID 06/09/19 latanoprost 0.005 % eye drops 1 drp OPHTHALMIC HS drp 06/09/19 metoprolol succinate 25 mg 25 mg PO DAILY #90 tab-cap 06/09/19 tablet,extended release 24 hr lisinopril 20 mg tablet 20 mg PO HS #90 tab 08/14/20 pravastatin 20 mg tablet 20 mg PO HS #90 tab 08/14/20 rivaroxaban 20 mg tablet 20 mg PO DAILY #90 tab-cap 08/14/20 Current Visit Medications: Current Medications Generic Name Dose Route Start Last Admin Trade Name Freq PRN Reason Stop Dose Admin Mitomycin 40 mg/ Sterile Water 0 mg 12/14/20 06:00 40 ml BLADIN 12/14/20 16:00 TODAY LEI Ringer's Solution 1,000 mls @ 80 mls/hr 12/14/20 06:00 IV 01/12/21 23:59 INFUSION LEI Cefazolin Sodium 2,000 mg/ 100 mls @ 200 mls/hr 12/14/20 06:00 Sodium Chloride IVPB 12/14/20 16:00 PREOP LEI IV Miscellaneous Supplies 1 each 12/14/20 06:00 Iv Access IV 01/12/21 23:59 DIRECTED LEI Sodium Chloride 0 ml 12/14/20 06:00 Normal Saline Flush 10 Ml Syr IV 01/12/21 23:59 PRN PRN Sodium Chloride 0 ml 12/14/20 06:00 Normal Saline 10 Ml Vial IJ 01/12/21 23:59 DIRECTED PRN Sterile Water 0 ml 12/14/20 06:00 Water,Injection,Sterile 10 Ml Vial IJ 01/12/21 23:59 DIRECTED PRN PFSH Active Problems Active Problems: Problem Status Onset Code Bladder cancer C67.9 Sexual function problem F52.9 Paroxysmal atrial fibrillation 09/14/15 I48.0 Overweight E66.3 Hyperlipidemia E78.5 History of tobacco use Z87.891 Family history of malignant neoplasm of prostate Z80.42 Essential hypertension I10 Diabetes mellitus E11.9 Hematuria R31.9 BPH w urinary obs/LUTS N40.1, N13.8 Bladder mass N32.89 Bladder stone N21.0 Medical History Medical History Bladder cancer Bucket handle tear of lateral meniscus of knee (02/27/07) left knee; repaired History of tobacco use Kidney stone Kidney stone Surgical History Surgical History Fracture, Open Treatment (~1969) RIGHT LEG History of appendectomy History of arthroscopy of knee Dr. Sweet; left knee; repair medial meniscus History of open reduction and internal fixation (ORIF) procedure 1969 Right leg Open Carpal Tunnel release LEFT Status post bunionectomy Bilateral Status post carpal tunnel release Tobacco Smoking/Tobacco Use Status: Former Tobacco Use Passive smoking exposure: Yes Second hand exposure: Yes Alcohol Alcohol Intake: current Alcohol intake frequency: a few times a week Alcohol type: wine Substance Use Substance use: Never Substance use type: does not use Vital Signs and Lab Results Vital Signs Most Recent Vital Signs in EMR: Temp Pulse Resp BP Pulse Ox 36.4 C L 65 16 129/64 96 12/14/20 09:19 12/14/20 09:19 12/14/20 09:19 12/14/20 09:19 12/14/20 09:19 Lab Results Blood Type / Crossmatch: No Data to Display Complete Blood Count: No Data to Display Complete Metabolic Panel: No Data to Display Liver Function Panel: No Data to Display Coagulation Panel: No Data to Display Cardiac Panel: No Data to Display Arterial Blood Gas: No Data to Display Venous Blood Gas: No Data to Display Pancreas Panel: No Data to Display Thyroid Panel: No Data to Display Infectious Disease: Coronavirus (COVID-19)(PCR) Negative (Negative) 12/12/20 08:51 12/12/20 Coronavirus 2019 Source Nasal/Nares 12/12/20 08:51 12/12/20 Blood Cultures: No Data to Display Toxicology Panel: No Data to Display Imaging and Studies Imaging and Studies EKG Summary: 11/2018: sinus jenna with PAC, LAD. Stress Test Summary: 2016: abnormal study after pharm stress. abnormal contraction consistent with cardiomyopathy, suggests small myocardial ischemia in the territory of the LAD. LVEF 37%, Echocardiogram Summary: 2017: LVEF 61%, no valve issues. 2016: Moderate LVH, LVEF 20-25%, moderately thickened, moderately calcified leaflets - no stenosis, LA mild dilation, RA mildly dilated. Cardiac Catheterization Summary: 2016: 40% mid LAD, otherwise normal. Anesthesia Assessment and Plan Anesthesia History Personal History: No History of Anesthesia Complications Family History: No Family History of Anesthesia Complications Exercise Tolerance Exercise Tolerance: Metabolic Equivalents>4 Cardiac & Pulmonary Exam Cardiac Exam: Normal S1/S2 Heart Sounds Pulmonary Exam: Clear Bilateral Breath Sounds Airway Exam Known Difficult Airway: No Mallampati Class: 1 Mouth Opening: Normal (> 3cm) Thyromental Distance: Greater than 3 cm Neck Range of Motion: Full ROM Neck Circumference: Normal Teeth Condition: Normal Dentition ASA Classification ASA Score: ASA 3 Emergency Case?: No NPO Status NPO Status: NPO Clears >2 hours, Solids >8 hours Anesthesia Plan Resuscitation Status: Full Code Anesthesia Technique: General Anesthesia Airway Planned: Natural Airway Monitors Used: Standard Monitors Preoperative Comments:: 80 yo male for TURBT. Sig PMHx: Afib (dofetilide, metoprolol, xarelto), former smoker, HTN (amlodipine, lisinopril). Previous anesthesia for TURBT: dexmed/prop/no airway, tolerated well. Also, spinal x 2 for TURPT. Plan: Propofol, no airway, LMA if needed.
[2020-12-14 09:19] VITALS: BP 129/64; PULSE 65; RESP 16; TEMP 36.4; O2SAT 96
--- NOTE | 2020-12-14 09:27 | W.PM.HP.N ---
Date of service: 12/14/20 Time of Service: 09:27 Assessment and Plan Assessment and plan (1) Bladder cancer: Status: Acute Assessment and plan: We will resect the visible recurrent tumor and instill Mitomycin C into the bladder postoperatively. Qualifiers: Bladder location: overlapping sites Qualified Code(s): C67.8 - Malignant neoplasm of overlapping sites of bladder History of Present Illness History of Present Illness Chief Complaint: Bladder cancer Narrative: This is an 80-year-old gentleman who has a history of urothelial cell carcinoma of the bladder. He has been treated with transurethral resections and intravesical chemotherapy (Gemcitabine). On his most recent surveillance cystoscopy, we found a papillary lesion just at the bladder neck. He presents now for transurethral resection and instillation of mitomycin-C. He is not seeing any gross hematuria, but he is noticing urinary frequency and urgency. Review of Systems Narrative: No fevers or chills No vision change or dysphasia No thyroid dysfunction. Hx Diabetes Mellitus No shortness of breath, cough or hemoptysis Hx atrial fibrillation. No chest pain No nausea, vomiting, hepatitis, ulcers, jaundice No seizures, strokes or peripheral neuropathy Bruises easily with Xaralto. No anemia No gout PFSH Medical History Bladder cancer Bucket handle tear of lateral meniscus of knee (02/27/07) left knee; repaired History of tobacco use Kidney stone Kidney stone Surgical History Fracture, Open Treatment (~1969) RIGHT LEG History of appendectomy History of arthroscopy of knee Dr. Sweet; left knee; repair medial meniscus History of open reduction and internal fixation (ORIF) procedure 1969 Right leg Open Carpal Tunnel release LEFT Status post bunionectomy Bilateral Status post carpal tunnel release Family History Mother , 97 Essential hypertension Hyperlipidemia Stroke Father , 93 Cancer Sister Essential hypertension Brother No problems noted. Maternal Grandfather , 67 No problems noted. Paternal Grandfather , 80+ Myocardial infarction Stroke Maternal Grandmother , 50 No problems noted. Paternal Grandmother , 50? No problems noted. Son No problems noted. Son No problems noted. Other History of tobacco use Social History (Updated 07/19/20 @ 09:02 by Lily Meyer) Smoking/Tobacco Use Status: Former Tobacco Use tobacco type: cigarettes Quit Date: 08/29/04 Second Hand Exposure: Yes Smoking risk assessment performed?: Yes Alcohol Intake: current Alcohol Intake frequency: a few times a week Alcohol type: wine Drug use: Never Substance use type: does not use Caregiver/Support person: No Household members: spouse Housing: house Communication Needs: Corrective Lenses Do you need help understanding health information?: Rarely Pets and animals: No Sexually active: Yes Do you think of yourself as: straight/heterosexual Current gender identity: male What is your relationship status?: How often do you talk on the phone with friends or family?: three or more times per week How often do you get together with friends or relatives?: twice per week How often do you attend restorationism or advent services?: decline to answer Do you belong to any clubs or organized social groups?: yes Panel score (0-1 are the most socially isolated patients): 3 What type of physical activity do you participate in: none Frequency: does not exercise Debora/Jew: Ep[employer]opalian Special debora needs: No Seatbelt use: never Helmet use: No Drive intox or ride w/intox over the road driver: No Meds Allergies and Home Medications Allergies Allergy/AdvReac Type Severity Reaction Status Date / Time No Known Allergies Allergy Verified 12/14/20 09:31 Home Medications Medication Instructions Recorded Confirmed Type cholecalciferol (vitamin D3) 1,000 unit PO DAILY 09/02/12 12/14/20 History omega-3 fatty acids-fish oil 1 ea PO DAILY #270 09/02/12 12/14/20 History amlodipine 5 mg tablet 10 mg PO HS #90 tab-cap 06/09/19 12/14/20 History dofetilide 250 mcg capsule 250 mcg PO BID 06/09/19 12/14/20 History latanoprost 0.005 % eye drops 1 drp OPHTHALMIC HS drp 06/09/19 12/14/20 History metoprolol succinate 25 mg 25 mg PO DAILY #90 tab-cap 06/09/19 12/14/20 History tablet,extended release 24 hr lisinopril 20 mg tablet 20 mg PO HS #90 tab 08/14/20 12/14/20 Rx pravastatin 20 mg tablet 20 mg PO HS #90 tab 08/14/20 12/14/20 Rx rivaroxaban 20 mg tablet 20 mg PO DAILY #90 tab-cap 08/14/20 12/14/20 Rx Exam Const General: cooperative, healthy appearing and comfortable Neck Neck: supple Resp Effort & Inspection: normal respiratory effort Auscultation: clear to auscultation bilaterally Cardio Rate: regular rate Rhythm: regular rhythm GI Palpation: soft and no masses Neuro General: patient alert, patient awake and patient oriented x3
[2020-12-14] MEDS: Lactated Ringers 1,000 ML 80 ML IV (10:09)
[2020-12-14 10:15] VITALS: BMI 33.5
[2020-12-14] MEDS: ceFAZolin 2,000 MG in Normal Saline 100 ML 200 MG IVPB (11:05)
[2020-12-14] MEDS: Lidocaine 2% Jelly 6 ML SYR (11:25)
--- NOTE | 2020-12-14 11:33 | BLADDER_PTH ---
PATIENT: Tan Squires JR LOC: [facility] U#:[id number] AGE/SX: 80/M ROOM: RE12/14/[address]: Amaury Deutsch MD : 1940 BED: DIS: 12/14/2020 SPEC #: [id number] RECD: 12/14/20 13:00 STATUS: SALLY RECarlos #: [id number] MYCHAL: 12/14/20 11:[address]: Amaury Deutsch DEPT: Surgical Specimen RECD BY: Rosita Mar ENTERED: 12/14/20 13:01 SP TYPE: Bladder OTHR DR: Osmar Jefferson DO Tissues: 1 - BLADDER BIOPSY Procedures: GROSS AND MICRO LEVEL 4 Comments: [id number]
--- NOTE | 2020-12-14 11:44 | W.PM.DSUDISC ---
Discharge Plan Disposition Patient Disposition: HOME Condition: Stable Discharge Details Reason For Visit: bladder cancer Attending Provider: Amaury Deutsch Primary Care Provider: Osmar Jefferson Home Meds and New Rx's Prescriptions: No Action cholecalciferol (vitamin D3) 1,000 UNIT capsule 1,000 unit PO DAILY RF: 0 omega-3 fatty acids-fish oil 1 EACH capsule 1 ea PO DAILY Qty: 270 RF: 4 dofetilide 250 mcg capsule 250 mcg PO BID RF: 0 amlodipine 5 mg tablet 10 mg PO HS Qty: 90 RF: 4 latanoprost 0.005 % drops 1 drp Ophthalmic HS RF: 0 metoprolol succinate 25 mg tablet extended release 24 hr 25 mg PO DAILY Qty: 90 RF: 4 lisinopril 20 mg tablet 20 mg PO HS Qty: 90 RF: 3 pravastatin 20 mg tablet 20 mg PO HS Qty: 90 RF: 3 Xarelto 20 mg tablet 20 mg PO DAILY Qty: 90 RF: 4 Discharge Instructions Additional Instructions: Leave renee clamped with Mitomycin C in bladder for 1 to 2 hours then unclamp catheter, drain and remove renee Followup with me @ 2 weeks to review surgical pathology May restart Xaralto on Saturday 12/16 only if urine is clear. If urine is bloody, do not restart Xaralto until urine clears. Activity:: no lifting over 10 to 20 pounds for 3 to 5 days Shower/Bathe:: 24 hours Diet:: As Tolerated Discharge Orders Discharge Orders: Discharge Order (Routine); Ordered 12/14/20 Ordered By: Amaury Deutsch DS: Diagnosis Discharge Diagnosis (1) Bladder cancer: Status: Acute
--- NOTE | 2020-12-14 11:49 | ROE_ITS ---
Date of service: 12/14/20 Time of Service: 11:49 Operative Note Operative Note DATE OF PROCEDURE: 12/14/20 PRE-OP DIAGNOSIS: Bladder cancer POST-OP DIAGNOSIS: same PROCEDURE: Cystoscopy, TURBT (less than 2 cm), instillation Mitomycin C into bladder SURGEON: Amaury Deutsch ANESTHESIA TYPE: Local By Surgeon and General:No Airway Refer to Anesthesia Record ESTIMATED BLOOD LOSS: 20 PATHOLOGY: other (bladder biopsies (bladder neck and posterior bladder wall)) COMPLICATIONS: None Patient was transported to: same day Patient's condition: stable Implants: 16 Malaysian renee catheter with 10 cc sterile water in balloon Indications: This is an 80-year-old woman who has a history of urothelial cell carcinoma of the bladder. On his initial tumor, there was concern that the lamina propria may be involved. We have never found muscle involvement. He has been treated with transurethral resections followed by intravesical gemcitabine (BCG was not available at the time). He is followed with surveillance cystoscopies. On his last cystoscopy, there did appear to be a papillary lesion at the bladder neck as well as some erythematous mucosa posteriorly on the bladder wall. He presents for transurethral resection and instillation of chemotherapy. Findings: erythematous patch posterior bladder wall papillary lesion at bladder neck Procedure Description: The patient will was given preoperative antibiotics and brought to the operating room on . After successful induction of general anesthesia without intubation, he was placed in the dorsal lithotomy position. His genitalia was prepped and draped. 2% Xylocaine jelly was instilled into the urethra to act as a local anesthetic. A 24 Malaysian resectoscope sheath was passed through the urethra into the bladder. We used a visual obturator in the 30 degree lens to inspect the urethra and bladder. The pendulous, bulbar and membranous urethra's appeared normal with no strictures. The prostatic urethra showed lateral lobe enlargement and a slight median lobe. On the anterior bladder neck, there was a papillary lesion just where the bladder and prostate joint. This area measured less than 2 cm in largest dimension. There was also some shaggy appearing mucosa along the median lobe of the prostate. The bladder neck was entered and the bladder mucosa was inspected. No papillary or nodular lesions were seen within the bladder, but there was some erythematous mucosa posteriorly in the region adjacent to a scar from prior resections. We then utilized an [employer] resectoscope to perform transurethral resection of the abnormal bladder neck mucosa as well as take a transurethral biopsy of the erythematous mucosa. All biopsy sites were cauterized using the coagulation current. Once hemostasis was obtained, the scope was removed and a 16 Malaysian Renee catheter was passed through the urethra into the bladder. The catheter balloon was inflated with 10 cc of sterile water. The bladder was drained. We then instilled a solution containing 40 mg of mitomycin-C mixed in 40 mL of saline through the catheter into the bladder. The catheter was then clamped allowing the solution to remain in the bladder. The patient tolerated this procedure well. There were no complications. We will plan on leaving the mitomycin-C in place for 1 to 2 hours before unclamping the catheter, draining the fluid and removing the Renee catheter.
[2020-12-14 12:11] VITALS: BP 126/67; PULSE 55; RESP 16; TEMP 36.4; O2SAT 97
--- NOTE | 2020-12-14 12:34 | W.ANESPOSTOP ---
Postoperative Evaluation Date, Time and Location Date Performed: 12/14/20 Time Performed: 12:34 Patient Location: Day Surgery Unit Vital Signs Most Recent Imported Vital Signs: Most Recent Vital Signs Temp Pulse Resp BP Pulse Ox 36.4 C L 55 L 16 126/67 97 12/14/20 12:11 12/14/20 12:11 12/14/20 12:11 12/14/20 12:11 12/14/20 12:11 Pain Score Most Recent Pain Score: Most Recent Pain Score Pain Level 4 12/14/20 12:11 Assessment Mental Status: Awake (Alert & Oriented to Patient Baseline) Airway and Respiratory Function: Patent airway with normal (patient baseline) respiratory exam Cardiovascular Function: Hemodynamically Stable Hydration Status: Adequately Hydrated Nausea & Vomiting: No Nausea or Vomiting Pain: Pt. Denies Any Pain Peripheral Nerve Block: Patient did not receive a nerve block
== END 2020-12-14 13:49 | disposition home or self-care (01) ==
PROVIDERS: PCP Emergency Medicine; Visit Provider Urology
PROC: 0TBB8ZZ Excision of Bladder, Via Natural or Artificial Opening Endoscopic (ICD-10-PCS; CPT 52234; principal; 2020-12-14 10:30)
PROC: (CPT 52234; 2020-12-14 10:30)
DX: N34.2 Other urethritis (principal); C67.8 Malignant neoplasm of overlapping sites of bladder
CPT/HCPCS: 52234; 51720; 88305; J0690; J2001; J9280

== ENCOUNTER → 2021-01-02 14:52 | Outpatient (BNVA) | payer MEDICARE, SELFPAY | PROVIDERS: PCP Emergency Medicine; Referring Provider Emergency Medicine; Visit Provider Urology | DX: C67.8 Malignant neoplasm of overlapping sites of bladder (principal) | CPT/HCPCS: 99213 ==

== ENCOUNTER → 2021-05-08 08:51 | Outpatient (BNVA) | payer MEDICARE, SELFPAY | PROVIDERS: PCP Family Medicine; Referring Provider Emergency Medicine; Visit Provider Urology | DX: N39.0 Urinary tract infection, site not specified (principal) | CPT/HCPCS: 81003; 99213 ==

== ENCOUNTER 2021-05-08 16:01 | Outpatient (REF) | payer MEDICARE, SELFPAY | END 2021-05-08 16:02 | disposition home or self-care (01) | LOC: LBN 16:01 | PROVIDERS: PCP Family Medicine; Visit Provider Urology | DX: N39.0 Urinary tract infection, site not specified (principal) | CPT/HCPCS: 87077; 87086; 87186 ==

== ENCOUNTER → 2021-05-22 08:56 | Outpatient (BNVA) | payer MEDICARE, SELFPAY | PROVIDERS: PCP Family Medicine; Visit Provider Urology | DX: C67.8 Malignant neoplasm of overlapping sites of bladder (principal); R31.0 Gross hematuria | CPT/HCPCS: 81003; 99214 ==

== ENCOUNTER 2021-05-22 10:27 | Outpatient (REF) | payer MEDICARE, SELFPAY | END 2021-05-22 10:28 | disposition home or self-care (01) | LOC: LBN 10:27 | PROVIDERS: PCP Family Medicine; Visit Provider Urology | DX: R31.9 Hematuria, unspecified (principal) | CPT/HCPCS: 87077; 87086; 87186 ==

== ENCOUNTER → 2021-05-29 10:47 | Outpatient (BNVA) | payer MEDICARE, SELFPAY | PROVIDERS: PCP Family Medicine; Referring Provider Family Medicine; Visit Provider Urology | DX: R31.0 Gross hematuria (principal); C67.8 Malignant neoplasm of overlapping sites of bladder | CPT/HCPCS: 52000; 81003 ==

== ENCOUNTER 2021-09-12 02:14 | Outpatient (CLI) | payer MEDICARE, SELFPAY ==
[2021-09-12 08:39] LABS: Hemoglobin A1C 5.8 % (<5.7)
[2021-09-12 08:56] LABS: ALT 21 U/L (16-63); Anion Gap 8.2 mmol/L (3-11); BUN 23 mg/dL (7-18); CO2 28.8 mmol/L (21.0-32.0); CREATININE 0.9 mg/dL (0.70-1.30); Calcium 8.9 mg/dL (8.5-10.1); Calculated LDL 84 mg/dL (<100); Chloride 104 mmol/L (98-107); Cholesterol 150 mg/dL (<200); Glucose 134 mg/dL (74-106); HDL Cholesterol 46 mg/dL (40-60); Potassium 3.8 mmol/L (3.5-5.1); Sodium 141 mmol/L (136-145); Triglyceride 100 mg/dL (<150)
== END 2021-09-12 02:15 | disposition home or self-care (01) ==
LOC: LBO 02:14
PROVIDERS: PCP Nurse Practitioner Family; Visit Provider Family Medicine
DX: I10 Essential (primary) hypertension; I48.0 Paroxysmal atrial fibrillation; R73.9 Hyperglycemia, unspecified; E66.3 Overweight; E78.5 Hyperlipidemia, unspecified
CPT/HCPCS: 36415; 80048; 80061; 83036; 84460

== ENCOUNTER 2021-10-30 10:16 | Emergency (ER) | payer MEDICARE, SELFPAY ==
[2021-10-30 10:20] VITALS: BP 126/61; PULSE 61; RESP 16; TEMP 36.5; O2SAT 95
--- NOTE | 2021-10-30 10:22 | W.ED.GENAD ---
Discharge Plan Disposition Patient Disposition: HOME Condition: Improving Discharge Details Clinical Impression: Calculus of distal right ureter, Hydronephrosis Primary Care Provider: Daron Hernández ED Provider: Etienne Deutsch Home Meds and New Rx's Prescriptions: New tamsulosin [Flomax] 0.4 mg capsule 0.4 mg PO DAILY Qty: 4 0RF Continued timolol maleate 0.5 % drops 1 drp ophthalmic (eye) DAILY Rx Instructions: 1 drop each eye every a.m omega-3 fatty acids-fish oil 1 EACH capsule 1 ea PO DAILY Qty: 270 Label Comments: daily 01/12/13 dofetilide 250 mcg capsule 250 mcg PO BID amlodipine 5 mg tablet 10 mg PO HS Qty: 90 latanoprost 0.005 % drops 1 drp Ophthalmic HS metoprolol succinate 25 mg tablet extended release 24 hr 25 mg PO DAILY Qty: 90 lisinopril 20 mg tablet See Rx Instructions .ROUTE .COMPLEX Qty: 90 3RF Dose Instruction: TAKE 1 TABLET AT BEDTIME Rx Instructions: TAKE 1 TABLET AT BEDTIME Xarelto 20 mg tablet 20 mg PO DAILY Qty: 90 3RF pravastatin 40 mg tablet 40 mg PO DAILY Qty: 90 3RF Eyepromise Restore 1 tab PO BID Discharge Instructions Instructions: Kidney Stones (ED) Additional Instructions: CT imaging reveals that you have a 6 mm right-sided distal ureteral stone with mild hydronephrosis. Flomax as directed. Plenty of fluids. Rtby-qby-rifaill medications as directed for discomfort. Please watch for new or worsening symptoms and return to the ER for any concerns. I personally spoke with Dr. Deutsch who is aware of your ER visit and kidney stone, his office should be reaching out to you but if you do not hear from them by the end of the day please call them for an appointment on Referrals: Amaury Deutsch MD [ [facility] STAFF PHYSICIAN] - Medical Decision Making 81-year-old gentleman with right sided lower abdominal pain since Friday, nothing makes it worse or better. Patient does have a history of renal stones. Clinically he appears well, nontoxic. Plan is to obtain IV access, give IV fluid, obtain routine screening laboratory values and reassess. Laboratory values do reveal mild leukocytosis. Renal function reveals a creatinine of 1.4 with a GFR of 48.64. Total bili of 1.2 LFTs otherwise unremarkable, lipase 56. Will obtain CT imaging with IV contrast. Awaiting urinalysis. Patient reports increased pain, [address] reveals a 6 mm right distal ureteral stone with mild hydronephrosis Urinalysis reveals ketones and trace of blood but no signs of infection Case discussed with Dr. Deutsch, urology. Recommends Flomax and analgesia, he will be happy to follow the patient in his office and potential bring to the OR on . This was discussed with the patient and family. Is agreeable to Flomax but declines additional analgesia. Will use [id number] medications. Reports significant relief of his discomfort with IV Tylenol. Patient did receive a second liter of IV. Standard discharge and return precautions were provided. Patient understands, is agreeable to this plan, and has no additional questions or concerns upon discharge. This documentation was generated using [employer] system, please disregard any oddities of phrase or misspellings. Medical Records Medical records reviewed: Yes I reviewed the patient's medical records. Imaging Data Radiologic Study: Attestation: I personally reviewed and interpreted this imaging study as follows: Imaging: CT Scan Radiologist's impression: Exam(s) CT ABDOMEN PELVIS W EXAM: CT ABDOMEN PELVIS W CLINICAL HISTORY: Periumbilical, RLQ pain, 13 wbc, hx of open appy TECHNIQUE: Imaging Protocol: Axial computed tomography images with coronal and sagittal reformatted images were created and reviewed CONTRAST MATERIAL: Intravenous: Omnipaque 350 Contrast volume:100 mL Oral: No COMPARISON: CT CT ABDOMEN PELVIS WO/W from 07/28/2019 FINDINGS: ABDOMEN: Lung Bases: Dependent atelectasis. Cardiomegaly. Liver: Normal density. There are multiple hepatic cysts. The largest measures 4.7 cm. Portal, Superior Mesenteric, and Splenic Veins: Unremarkable. Gallbladder and Biliary Tract: No radiodense calculus or dilation. Pancreas: Normal density, no abnormal calcifications or inflammatory process. There is a 0.9 cm cyst in the body of the pancreas. This was present and has been stable since 2019. Spleen: Normal. Adrenals: No masses seen. Kidneys: Normal size, contour and axis. There is a 6.5 mm stone just proximal to the UVJ on the right causing moderate hydronephrosis. There are bilateral renal cysts. No follow-up is recommended. Abdominal Aorta: Abdominal portion non-dilated. Atherosclerosis. Bowel: No obstruction or bowel wall thickening. No evidence of appendicitis. Peritoneal Cavity: No ascites, collection or mesenteric inflammatory response. No free air. Lymph Nodes: Within normal limits. Bones: Within normal limits for the patient's age. Soft Tissues: Bilateral fat containing inguinal hernias. PELVIS: Bladder: There is diffuse thickening of the wall of the urinary bladder. Mild infiltrative changes are seen around the urinary bladder. Reproductive Organs: The prostate gland is enlarged and impinges upon the base of the bladder. Lymph Nodes: Within normal limits. Bones: Within normal limits for the patient's age. IMPRESSION: 1. 6.5 mm distal right ureteral stone causing moderate hydronephrosis. 2. Thickening of the wall of the urinary bladder with mild surrounding infiltrative changes. This may be due to an infectious/inflammatory cystitis. Chronic bladder outlet obstruction should also be considered. 3. Prostatic enlargement. 4. 0.9 cm cyst in the body of the pancreas. This is been stable since 2019. A follow-up examination in 2 years is recommended. If this remains stable no follow-up is recommended after that. (Omayra, 2017). 5. Results of this exam have been verbally communicated with provider. Lab Data Lab results reviewed: Yes I reviewed the patient's lab results. Labs: Laboratory Tests Range/Units 10/30/21 10/30/21 10/30/21 10:36 10:36 12:59 WBC (4.4-10.8) 10^3/uL 12.96 H RBC (4.36-5.78) 10^6/uL 4.96 Hgb (13.5-17.5) g/dL 15.3 Hct (40.0-50.0) % 45.7 MCV (80-95) fL 92 MCH (27.0-33.0) pg 30.8 MCHC (32.0-36.0) % 33.5 RDW (11.8-14.1) % 12.1 Plt Count (130-400) 10^3/uL 218 MPV (8.0-11.0) fL 9.4 Immature Gran % 0.3 Neutrophils % 74.4 Lymphocytes % 15.3 Monocytes % 9.3 Eosinophils % 0.5 Basophils % 0.2 Nucleated RBC % (0.0-0.3) % 0.0 Absolute Neutrophils (1.2-6.7) 10^3/uL 9.64 H Absolute Lymphocytes (1.2-3.4) 10^3/uL 1.98 Absolute Monocytes (0.1-0.8) 10^3/uL 1.21 H Absolute Eosinophils (0.0-0.7) 10^3/uL 0.06 Absolute Basophils (0.0-0.2) 10^3/uL 0.03 Sodium (136-145) mmol/L 134 L Potassium (3.5-5.1) mmol/L 3.6 Chloride (98-107) mmol/L 100 Carbon Dioxide (21.0-32.0) mmol/L 28.2 Anion Gap (3-11) mmol/L 5.8 BUN (7-18) mg/dL 23 H Creatinine (0.70-1.30) mg/dL 1.4 H Estimated GFR/1.73 m2 (mL/min/1.73m2) 48.64 Glucose (74-106) mg/dL 108 H Calcium (8.5-10.1) mg/dL 9.0 Total Bilirubin (0.2-1.0) mg/dL 1.2 H AST (15-37) U/L 19 ALT (16-63) U/L 22 Alkaline Phosphatase (46-116) U/L 65 Total Protein (6.4-8.2) g/dL 7.7 Albumin (3.4-5.0) g/dL 3.5 Lipase (73-393) U/L 56 Urine Color (Yellow) Yellow Urine Clarity (Clear) Clear Urine pH (5-8) 5.5 Ur Specific [place] (1.005-1.025) 1.010 Urine Protein (Negative) mg/dL Negative Urine Ketones (Negative) mg/dL 40 H Urine Blood (Negative) Trace-intact H Urine Nitrite (Negative) Negative Urine Bilirubin (Negative) Negative Urine Urobilinogen (Up TO 0.2) EU/dL 0.2 Ur Leukocyte Esterase (Negative) Negative Urine RBC (0-2) HPF 3-5 H Urine WBC (0-5) HPF Negative Ur Epithelial Cells (Negative) HPF Rare Urine Crystals (Negative) HPF Negative Urine Bacteria (Negative) HPF Rare Urine Casts (Negative) LPF Negative Urine Mucus (Negative) Negative Urine Other (Negative) Negative Ur Culture Indicated? No Urine Glucose (Negative) mg/dL Negative HPI General Mode of arrival: ambulatory. Date/Time Provider Initiated Documentation: 10/30/21 10:22. Limitations to Documentation: no limitations. Information obtained by: patient. History of Present Illness 81 year old M presents to the emergency department with the chief complaint of R abd pain, described as moderate, with intensity rated at 4. Quality is described as aching, and is localized to the abdomen and right. Patient reports no radiation. Patient started experiencing this day(s) (2) and it has been constant. No relieving factors improve symptom(s), No exacerbating factors reported . Patient notes no other symptoms.. Patient did receive the following treatments prior to arrival, none Related Data Home Medications Medication Instructions Recorded Confirmed omega-3 fatty acids-fish oil 300 1 ea PO DAILY ##270 09/02/12 10/30/21 mg-1,000 mg capsule amlodipine 5 mg tablet 10 mg PO HS #90 tab-caps 06/09/19 10/30/21 dofetilide 250 mcg capsule 250 mcg PO BID 06/09/19 10/30/21 latanoprost 0.005 % eye drops 1 drp ophthalmic (eye) HS 06/09/19 10/30/21 metoprolol succinate 25 mg 25 mg PO DAILY #90 tab-caps 06/09/19 10/30/21 tablet,extended release 24 hr lisinopril 20 mg tablet See Rx Instructions .Route 06/13/21 10/30/21 .COMPLEX #90 tabs timolol maleate 0.5 % eye drops 1 drp ophthalmic (eye) DAILY 09/04/21 10/30/21 rivaroxaban 20 mg tablet (Xarelto) 20 mg PO DAILY #90 tab-caps 10/03/21 10/30/21 pravastatin 40 mg tablet 40 mg PO DAILY #90 tabs 10/24/21 10/30/21 Eyepromise Restore 1 tab PO BID 10/30/21 tamsulosin 0.4 mg capsule (Flomax) 0.4 mg PO DAILY #4 caps 10/30/21 Previous Rx's Medication Instructions Recorded lisinopril 20 mg tablet See Rx Instructions .Route 06/13/21 .COMPLEX #90 tabs rivaroxaban 20 mg tablet (Xarelto) 20 mg PO DAILY #90 tab-caps 10/03/21 pravastatin 40 mg tablet 40 mg PO DAILY #90 tabs 10/24/21 tamsulosin 0.4 mg capsule (Flomax) 0.4 mg PO DAILY #4 caps 10/30/21 Allergies Allergy/AdvReac Type Severity Reaction Status Date / Time No Known Allergies Allergy Verified 10/30/21 10:25 General DONNELL: 3 Review of Systems Constitutional Constitutional: Denies fever(s) Cardiovascular Cardiovascular: Denies chest pain and Denies dyspnea Respiratory Respiratory: Denies cough and Denies dyspnea Gastrointestinal Gastrointestinal: Reports abdominal pain, Denies melena, Denies hematochezia, Denies constipation, Denies diarrhea, Denies nausea and Denies vomiting Genitourinary Genitourinary: Denies hematuria and Denies dysuria Musculoskeletal Musculoskeletal: Denies back pain Integumentary/Breasts Skin/Breast: Denies rash PFSH All Active Problems (Updated 10/30/21 @ 13:41 by GINNA Pierson) Calculus of distal right ureter (Acute) Hydronephrosis (Acute) Leg edema (Acute) c/w venous stasis Hyperglycemia (Acute) 08/2021, [id number] 5.8% Bladder cancer (Acute) 2019-status post transurethral resection, recurrence also treated with resection, status post chemotherapy infusion followed by urology-[facility] Paroxysmal atrial fibrillation (Chronic 09/14/15) Overweight (Chronic) Hyperlipidemia (Chronic) Family history of malignant neoplasm of prostate (Chronic) Essential hypertension (Chronic) BPH w urinary obs/LUTS (Acute) Bladder stone (Acute) Medical History Bucket handle tear of lateral meniscus of knee (02/27/07) left knee; repaired History of tobacco use Kidney stone Kidney stone Surgical History Fracture, Open Treatment (~1969) RIGHT LEG History of appendectomy History of arthroscopy of knee Dr. Sweet; left knee; repair medial meniscus History of open reduction and internal fixation (ORIF) procedure 1969 Right leg Open Carpal Tunnel release LEFT Status post bunionectomy Bilateral Status post carpal tunnel release Family History Mother , 97 Essential hypertension Hyperlipidemia Stroke Father , 93 Cancer Sister Essential hypertension Brother No problems noted. Maternal Grandfather , 67 No problems noted. Paternal Grandfather , 80+ Myocardial infarction Stroke Maternal Grandmother , 50 No problems noted. Paternal Grandmother , 50? No problems noted. Son No problems noted. Son No problems noted. Other History of tobacco use Social History Smoking/Tobacco Use Status: Former Tobacco Use tobacco type: cigarettes Quit Date: 08/29/04 Second Hand Exposure: Yes Smoking risk assessment performed?: Yes Alcohol Intake: current Alcohol Intake frequency: a few times a week Alcohol type: wine Drug use: Never Substance use type: does not use Caregiver/Support person: No Household members: spouse Housing: house Communication Needs: Corrective Lenses Do you need help understanding health information?: Rarely Pets and animals: No Sexually active: Yes Do you think of yourself as: straight/heterosexual Current gender identity: male What is your relationship status?: How often do you talk on the phone with friends or family?: twice per week How often do you get together with friends or relatives?: three or more times per week How often do you attend temple or mandaeism services?: decline to answer Do you belong to any clubs or organized social groups?: yes Panel score (0-1 are the most socially isolated patients): 3 What type of physical activity do you participate in: none Frequency: does not exercise Debora/Buddhism: Presbyterian Special debora needs: No Seatbelt use: never Helmet use: No 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 Do you feel safe at home: Yes Do you feel safe in your relationship?: Yes Exam Const General: cooperative, healthy appearing, comfortable and no acute distress Orientation: alert and awake [facility] Head: normal to inspection, normocephalic and atraumatic Mouth: moist mucous membranes Eyes General: appearance normal, both eyes and all related structures Conjunctivae: conjunctivae normal Neck Neck: normal visual inspection, full ROM, trachea midline and supple Resp Effort & Inspection: normal respiratory effort and able to speak in complete sentences Auscultation: clear to auscultation bilaterally Cardio Rate: regular rate Rhythm: regular rhythm GI Inspection: normal to inspection and obesity Palpation: soft, not firm, no guarding, no pulsatile masses and tender (Mild right flank and right lower quadrant) not at McBurney's point, Grove's sign negative and with no rebound tenderness Auscultation: normal bowel sounds Back/Spine/Pelvis Back: no CVA tenderness and No back tenderness Skin General skin exam: no rashes or lesions noted Neuro General: patient alert, patient awake, moves all extremities and no focal motor deficits Cognition: normal cognition Speech: speech normal Gait: normal gait Sensory Exam: no sensory deficits noted Extrem General: normal to inspection and full ROM Psych Appearance: grossly normal Mental Status: mental status grossly normal
[2021-10-30 10:40] LABS: Abs Immature Grans 0.04 10^3/uL (0.0-0.06); Absolute Basophil Count 0.03 10^3/uL (0.0-0.2); Absolute Lymphocyte Count 1.98 10^3/uL (1.2-3.4); Absolute Monocyte Count 1.21 10^3/uL (0.1-0.8); Basophils % 0.2; Eosinophils % 0.5; HCT 45.7 % (40.0-50.0); HGB 15.3 g/dL (13.5-17.5); Immature Grans % 0.3; Lymphocytes % 15.3; MCH 30.8 pg (27.0-33.0); MCHC 33.5 % (32.0-36.0); MCV 92 fL (80-95); MPV 9.4 fL (8.0-11.0); Monocytes % 9.3; Neutrophils % 74.4; Platelet Count 218 10^3/uL (130-400); RBC 4.96 10^6/uL (4.36-5.78); RDW 12.1 % (11.8-14.1); RDW-SD 40.8 fL; WBC 12.96 10^3/uL (4.4-10.8)
[2021-10-30 10:42] LABS: Absolute Eosinophil Count 0.06 10^3/uL (0.0-0.7); Absolute Neutrophil Count 9.64 10^3/uL (1.2-6.7)
--- NOTE | 2021-10-30 10:45 | DI.CT_ITS ---
Exam(s) CT ABDOMEN PELVIS W EXAM: CT ABDOMEN PELVIS W CLINICAL HISTORY: Periumbilical, RLQ pain, 13 wbc, hx of open appy TECHNIQUE: Imaging Protocol: Axial computed tomography images with coronal and sagittal reformatted images were created and reviewed CONTRAST MATERIAL: Intravenous: Omnipaque 350 Contrast volume:100 mL Oral: No COMPARISON: CT CT ABDOMEN PELVIS WO/W from 07/28/2019 FINDINGS: ABDOMEN: Lung Bases: Dependent atelectasis. Cardiomegaly. Liver: Normal density. There are multiple hepatic cysts. The largest measures 4.7 cm. Portal, Superior Mesenteric, and Splenic Veins: Unremarkable. Gallbladder and Biliary Tract: No radiodense calculus or dilation. Pancreas: Normal density, no abnormal calcifications or inflammatory process. There is a 0.9 cm cyst in the body of the pancreas. This was present and has been stable since 2019. Spleen: Normal. Adrenals: No masses seen. Kidneys: Normal size, contour and axis. There is a 6.5 mm stone just proximal to the UVJ on the right causing moderate hydronephrosis. There are bilateral renal cysts. No follow-up is recommended. Abdominal Aorta: Abdominal portion non-dilated. Atherosclerosis. Bowel: No obstruction or bowel wall thickening. No evidence of appendicitis. Peritoneal Cavity: No ascites, collection or mesenteric inflammatory response. No free air. Lymph Nodes: Within normal limits. Bones: Within normal limits for the patient's age. Soft Tissues: Bilateral fat containing inguinal hernias. PELVIS: Bladder: There is diffuse thickening of the wall of the urinary bladder. Mild infiltrative changes a re seen around the urinary bladder. Reproductive Organs: The prostate gland is enlarged and impinges upon the base of the bladder. Lymph Nodes: Within normal limits. Bones: Within normal limits for the patient's age. IMPRESSION: 1. 6.5 mm distal right ureteral stone causing moderate hydronephrosis. 2. Thickening of the wall of the urinary bladder with mild surrounding infiltrative changes. This ma y be due to an infectious/inflammatory cystitis. Chronic bladder outlet obstruction should also be c onsidered. 3. Prostatic enlargement. 4. 0.9 cm cyst in the body of the pancreas. This is been stable since 2019. A follow-up examination in 2 years is recommended. If this remains stable no follow-up is recommended after that. (Omayra , 2017). 5. Results of this exam have been verbally communicated with provider. RADIATION DOSE DELIVERED: 1,275.09mGy.cm Total DLP DATA REPOSITORY: All CT scans at this facility are submitted to the National Radiology Data Registry (NRDR) Dose Index Registry (DIR) with the [employer] (A[employer]). RADIATION OPTIMIZATION: All CT scans at this facility use at least one of these dose optimization te chniques: automated exposure control; mA and/or kV adjustment per patient size (includes targeted exa ms where dose is matched to clinical indication); or iterative reconstruction.
[2021-10-30] MEDS: Normal Saline 1,000 ML 1000 ML IV ×2 (11:06→13:30)
[2021-10-30 11:07] LABS: ALT 22 U/L (16-63); AST 19 U/L (15-37); Albumin 3.5 g/dL (3.4-5.0); Alkaline Phosphatase 65 U/L (46-116); Anion Gap 5.8 mmol/L (3-11); BUN 23 mg/dL (7-18); Bilirubin, Total 1.2 mg/dL (0.2-1.0); CO2 28.2 mmol/L (21.0-32.0); CREATININE 1.4 mg/dL (0.70-1.30); Chloride 100 mmol/L (98-107); Estimated GFR 48.64 (mL/min/1.73m2); Glucose 108 mg/dL (74-106); Lipase 56 U/L (73-393); Potassium 3.6 mmol/L (3.5-5.1); Sodium 134 mmol/L (136-145); Total Protein 7.7 g/dL (6.4-8.2)
[2021-10-30] MEDS: Omnipaque 350 MG/ML 100 ML BTL IJ (11:52)
[2021-10-30] MEDS: Normal Saline Flush 10 ML SYR IVP (11:53)
[2021-10-30] MEDS: Tamsulosin 0.4 MG CAPCR PO (12:44)
[2021-10-30 13:06] LABS: Bilirubin Negative (Negative); Blood Trace-intact (Negative); Clarity Clear (Clear); Glucose Negative (Negative); Ketones 40 mg/dL (Negative); Leukocyte Esterase Negative (Negative); Nitrite Negative (Negative); Urobilinogen 0.2 EU/dL (Up TO 0.2); pH 5.5 (5-8)
[2021-10-30 13:12] LABS: WBC Negative HPF (0-5)
[2021-10-30 13:13] LABS: Bacteria Rare HPF (Negative); C & S Indicated? No; Casts Negative LPF (Negative); Crystals Negative HPF (Negative); Epithelial Cells Rare HPF (Negative); Mucus Negative (Negative); Other Cells Negative (Negative)
[2021-10-30 13:59] VITALS: BP 124/66; PULSE 64; RESP 16; TEMP 36.6; O2SAT 95
--- NOTE | 2021-10-30 16:53 | NUR.NOTE ---
urological calcification, appt scheduled with Urology 10/31/21 at 2:00 CLB
== END 2021-10-30 14:21 | disposition home or self-care (01) ==
PROVIDERS: Emergency Provider Physician Assistant; PCP Nurse Practitioner Family
DX: N13.2 Hydronephrosis with renal and ureteral calculous obstruction (principal); R10.31 Right lower quadrant pain; D72.829 Elevated white blood cell count, unspecified
CPT/HCPCS: 36415; 80053; 83690; 96361; 96374; 99284; 74177; 81003; 81015; 85025; J0131; J3490

== ENCOUNTER → 2021-10-31 13:39 | Outpatient (BNVA) | payer MEDICARE, SELFPAY | PROVIDERS: PCP Nurse Practitioner Family; Referring Provider Nurse Practitioner Family; Visit Provider Nurse Practitioner Gerontology | DX: R10.31 Right lower quadrant pain (principal); Z85.51 Personal history of malignant neoplasm of bladder; N40.0 Benign prostatic hyperplasia without lower urinary tract symptoms; N20.1 Calculus of ureter | CPT/HCPCS: 99214 ==

== ENCOUNTER 2021-10-31 14:57 | Outpatient (REF) | payer MEDICARE, SELFPAY ==
[2021-10-31 15:13] LABS: Source Nasal/Nares
[2021-11-01 00:20] LABS: COVID-19 PCR Negative (Negative)
== END 2021-10-31 14:58 | disposition home or self-care (01) ==
LOC: LBN 14:57
PROVIDERS: PCP Nurse Practitioner Family; Visit Provider Nurse Practitioner Gerontology
DX: Z20.822 Contact with and (suspected) exposure to COVID-19 (principal); Z01.818 Encounter for other preprocedural examination
CPT/HCPCS: 87635

== ENCOUNTER 2021-11-01 08:28 | Day surgery (SDC) | payer MEDICARE, SELFPAY ==
[2021-11-01] VITALS (7 sets, daily range): BP systolic 90–103; BP diastolic 57–82; PULSE 65–108; RESP 10–18; TEMP 36.5–36.9; O2SAT 91–96; BMI 32.8
--- NOTE | 2021-11-01 09:34 | ANES.PREOP_ITS ---
General Info Date of Service Date Performed: 11/01/21 Height: 5 ft 9 in Weight: 101 kg Body Mass Index (BMI): 32.8 Surgical Procedure: Operation Date: 11/01/21 10:25 Proposed Procedure Side Surgeon p Cystoscopy/Laser/Retrograde/Ureteroscopy/Stone Manipulation/?Stent Right Amaury Deutsch MD Meds Allergies and Home Medications Allergies Allergy/AdvReac Type Severity Reaction Status Date / Time No Known Allergies Allergy Verified 11/01/21 08:51 Home Medication Medication Instructions Recorded omega-3 fatty acids-fish oil 300 1 ea PO DAILY ##270 09/02/12 mg-1,000 mg capsule amlodipine 5 mg tablet 10 mg PO HS #90 tab-caps 06/09/19 dofetilide 250 mcg capsule 250 mcg PO BID 06/09/19 latanoprost 0.005 % eye drops 1 drp ophthalmic (eye) HS 06/09/19 metoprolol succinate 25 mg 25 mg PO DAILY #90 tab-caps 06/09/19 tablet,extended release 24 hr lisinopril 20 mg tablet See Rx Instructions .Route 06/13/21 .COMPLEX #90 tabs timolol maleate 0.5 % eye drops 1 drp ophthalmic (eye) DAILY 09/04/21 rivaroxaban 20 mg tablet (Xarelto) 20 mg PO DAILY #90 tab-caps 10/03/21 pravastatin 40 mg tablet 40 mg PO DAILY #90 tabs 10/24/21 Eyepromise Restore 1 tab PO BID 10/30/21 tamsulosin 0.4 mg capsule (Flomax) 0.4 mg PO DAILY #4 caps 10/30/21 Current Visit Medications: Current Medications Generic Name Dose Route Start Last Admin Trade Name Freq PRN Reason Stop Dose Admin Ringer's Solution 1,000 mls @ 80 mls/hr 11/01/21 06:00 IV 11/30/21 23:59 INFUSION LEI Cefazolin Sodium/Dextrose 2 gm in 50 mls @ 100 mls/hr 11/01/21 06:00 Ancef Duplex IVPB 11/30/21 23:59 PREOP LEI IV Miscellaneous Supplies 1 each 11/01/21 06:00 Iv Access IV 11/30/21 23:59 DIRECTED LEI Sodium Chloride 0 ml 11/01/21 06:00 Normal Saline Flush 10 Ml Syr IV 11/30/21 23:59 PRN PRN Sodium Chloride 0 ml 11/01/21 06:00 Normal Saline 10 Ml Vial IJ 11/30/21 23:59 DIRECTED PRN Sterile Water 0 ml 11/01/21 06:00 Water,Injection,Sterile 10 Ml Vial IJ 11/30/21 23:59 DIRECTED PRN PFSH Active Problems Active Problems: Problem Status Onset Code Paroxysmal atrial fibrillation 09/14/15 I48.0 Overweight E66.3 Hyperlipidemia E78.5 History of tobacco use Z87.891 Family history of malignant neoplasm of prostate Z80.42 Essential hypertension I10 BPH w urinary obs/LUTS N40.1, N13.8 Bladder stone N21.0 Bladder cancer C67.9 Hyperglycemia R73.9 Leg edema R60.0 Calculus of distal right ureter N20.1 Hydronephrosis N13.30 Medical History Medical History Bucket handle tear of lateral meniscus of knee (02/27/07) left knee; repaired History of tobacco use Kidney stone Kidney stone Surgical History Surgical History Fracture, Open Treatment (~1969) RIGHT LEG History of appendectomy History of arthroscopy of knee Dr. Sweet; left knee; repair medial meniscus History of bunionectomy History of open reduction and internal fixation (ORIF) procedure 1969 Right leg Hx of appendectomy Hx of toe surgery arthritic ring toe left Open Carpal Tunnel release LEFT Status post bunionectomy Bilateral Status post carpal tunnel release Tobacco Smoking/Tobacco Use Status: Former Tobacco Use Passive smoking exposure: Yes Second hand exposure: Yes Alcohol Alcohol Intake: current Alcohol intake frequency: a few times a week Alcohol type: wine Substance Use Substance use: Never Substance use type: does not use Vital Signs and Lab Results Vital Signs Most Recent Vital Signs in EMR: Most Recent Vital Signs Temp Pulse Resp BP Pulse Ox 36.5 C 65 14 102/68 96 11/01/21 08:57 11/01/21 08:57 11/01/21 08:57 11/01/21 08:57 11/01/21 08:57 Lab Results Blood Type / Crossmatch: No Data to Display Complete Blood Count: White Blood Count 12.96 10^3/uL (4.4-10.8) H 10/30/21 10:36 Red Blood Count 4.96 10^6/uL (4.36-5.78) 10/30/21 10:36 Hemoglobin 15.3 g/dL (13.5-17.5) 10/30/21 10:36 Hematocrit 45.7 % (40.0-50.0) 10/30/21 10:36 Platelet Count 218 10^3/uL (130-400) 10/30/21 10:36 Complete Metabolic Panel: Sodium Level 134 mmol/L (136-145) L 10/30/21 10:36 Potassium Level 3.6 mmol/L (3.5-5.1) 10/30/21 10:36 Chloride Level 100 mmol/L (98-107) 10/30/21 10:36 Carbon Dioxide Level 28.2 mmol/L (21.0-32.0) 10/30/21 10:36 Blood Urea Nitrogen 23 mg/dL (7-18) H 10/30/21 10:36 Creatinine 1.4 mg/dL (0.70-1.30) H 10/30/21 10:36 Estimated GFR/1.73 m2 48.64 (mL/min/1.73m2) 10/30/21 10:36 Calcium Level 9.0 mg/dL (8.5-10.1) 10/30/21 10:36 Albumin 3.5 g/dL (3.4-5.0) 10/30/21 10:36 Glucose Level 108 mg/dL (74-106) H 10/30/21 10:36 Liver Function Panel: Alanine Aminotransferase (ALT/SGPT) 22 U/L (16-63) 10/30/21 10: 36 Aspartate Amino Transf (AST/SGOT) 19 U/L (15-37) 10/30/21 10:36 Coagulation Panel: No Data to Display Cardiac Panel: No Data to Display Arterial Blood Gas: No Data to Display Venous Blood Gas: No Data to Display Pancreas Panel: Lipase 56 U/L (73-393) 10/30/21 10:36 Thyroid Panel: No Data to Display Infectious Disease: Coronavirus (COVID-19)(PCR) Negative (Negative) 10/31/21 14:20 Coronavirus 2019 Source Nasal/Nares 10/31/21 14:20 Blood Cultures: No Data to Display Toxicology Panel: No Data to Display Imaging and Studies Imaging and Studies Study information below may be from another EMR and interpreted by another provider. Please see original notes in EMR for more complete details. EKG Summary: 11/2018: sinus jenna with PAC, LAD. Stress Test Summary: 2016: abnormal study after pharm stress. abnormal contraction consistent with cardiomyopathy, suggests small myocardial ischemia in the territory of the LAD. LVEF 37%, Echocardiogram Summary: 2017: LVEF 61%, no valve issues. 2016: Moderate LVH, LVEF 20-25%, moderately thickened, moderately calcified leaflets - no stenosis, LA mild dilation, RA mildly dilated. Cardiac Catheterization Summary: 2016: 40% mid LAD, otherwise normal. Anesthesia Assessment and Plan Anesthesia History Personal History: No History of Anesthesia Complications Family History: No Family History of Anesthesia Complications Exercise Tolerance Exercise Tolerance: Metabolic Equivalents>4 Pertinent Negatives Pertinent Negatives: No Major Cardiovascular Symptoms or Complaints and No Major Pulmonary Symptoms or Complaints Cardiac & Pulmonary Exam Cardiac Exam: Normal S1/S2 Heart Sounds Pulmonary Exam: Clear Bilateral Breath Sounds Implantable Cardiac Device Does patient have a Pacemaker or an ICD?: No Airway Exam Known Difficult Airway: No Mallampati Class: 1 Mouth Opening: Normal (> 3cm) Thyromental Distance: Greater than 3 cm Neck Range of Motion: Full ROM Neck Circumference: Normal Teeth Condition: Normal Dentition ASA Classification ASA Score: ASA 3 Emergency Case?: No NPO Status NPO Status: NPO Clears >2 hours, Solids >8 hours Anesthesia Plan Resuscitation Status: Full Code Anesthesia Technique: General Anesthesia Airway Planned: Natural Airway Monitors Used: Standard Monitors
[2021-11-01] MEDS: Lactated Ringers 1,000 ML 80 ML IV (09:40)
--- NOTE | 2021-11-01 10:47 | HPE_ITS ---
Date of service: 11/01/21 Time of Service: 10:48 Assessment and Plan Assessment and plan (1) Calculus of distal right ureter: Status: Acute Assessment and plan: We will plan on ureteroscopy and possible holmium laser lithotripsy of the stone. If we see any recurrent bladder tumor when we do cystoscopy, we will plan to take a biopsy or fulgurate the area while he is under anesthesia. History of Present Illness History of Present Illness Chief Complaint: Right ureteral stone Narrative: This is an 81-year-old gentleman who has a history of urolithiasis. He presented to the emergency department 48 hours ago with an acute onset of right sided flank and pelvic pain. He was evaluated with a CT scan and found to have an 8 mm distal right ureteral stone. He continued to have symptoms including pain. He has no fever or chills. He presents now for stone manipulation. He has a history of bladder cancer and was due for surveillance cystoscopy next month He has had a cystoscopy and holmium laser lithotripsy of a 16 mm bladder stone. The chemical analysis showed 100% calcium oxalate monohydrate. Review of Systems Narrative: No fevers or chills No vision change or dysphasia No diabetes or thyroid No shortness of breath, cough or hemoptysis Hx atrial fibrillation. No chest pain No hepatitis, ulcers, jaundice No seizures, strokes or peripheral neuropathy On anticoagulants. No anemia Arthralgia. No gout PFSH All Active Problems Paroxysmal atrial fibrillation (Chronic 09/14/15) Overweight (Chronic) Hyperlipidemia (Chronic) Family history of malignant neoplasm of prostate (Chronic) Essential hypertension (Chronic) BPH w urinary obs/LUTS (Acute) Bladder stone (Acute) Bladder cancer (Acute) 2019-status post transurethral resection, recurrence also treated with resection, status post chemotherapy infusion followed by urology-[facility] Hyperglycemia (Acute) 08/2021, [id number] 5.8% Leg edema (Acute) c/w venous stasis Calculus of distal right ureter (Acute) Hydronephrosis (Acute) Medical History Bucket handle tear of lateral meniscus of knee (02/27/07) left knee; repaired History of tobacco use Kidney stone Kidney stone Surgical History Fracture, Open Treatment (~1970) RIGHT LEG History of appendectomy History of arthroscopy of knee Dr. Sweet; left knee; repair medial meniscus History of bunionectomy History of open reduction and internal fixation (ORIF) procedure 1969 Right leg Hx of appendectomy Hx of toe surgery arthritic ring toe left Open Carpal Tunnel release LEFT Status post bunionectomy Bilateral Status post carpal tunnel release Family History Mother , 97 Essential hypertension Hyperlipidemia Stroke Father , 93 Cancer Sister Essential hypertension Brother No problems noted. Maternal Grandfather , 67 No problems noted. Paternal Grandfather , 80+ Myocardial infarction Stroke Maternal Grandmother , 50 No problems noted. Paternal Grandmother , 50? No problems noted. Son No problems noted. Son No problems noted. Other History of tobacco use Social History Smoking/Tobacco Use Status: Former Tobacco Use tobacco type: cigarettes Quit Date: 08/29/04 Second Hand Exposure: Yes Smoking risk assessment performed?: Yes Alcohol Intake: current Alcohol Intake frequency: a few times a week Alcohol type: wine Drug use: Never Substance use type: does not use Caregiver/Support person: No Household members: spouse Housing: house Communication Needs: Corrective Lenses Do you need help understanding health information?: Rarely Pets and animals: No Sexually active: Yes Do you think of yourself as: straight/heterosexual Current gender identity: male What is your relationship status?: How often do you talk on the phone with friends or family?: twice per week How often do you get together with friends or relatives?: three or more times per week How often do you attend hindu or latter day services?: decline to answer Do you belong to any clubs or organized social groups?: yes Panel score (0-1 are the most socially isolated patients): 3 What type of physical activity do you participate in: none Frequency: does not exercise Debora/B[employer]: [employer] Special debora needs: No Seatbelt use: never Helmet use: No 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 Do you feel safe at home: Yes Do you feel safe in your relationship?: Yes Meds Allergies and Home Medications Allergies Allergy/AdvReac Type Severity Reaction Status Date / Time No Known Allergies Allergy Verified 11/01/21 08:51 Home Medications Medication Instructions Recorded Confirmed Type omega-3 fatty acids-fish oil 300 1 ea PO DAILY ##270 09/02/12 11/01/21 History mg-1,000 mg capsule amlodipine 5 mg tablet 10 mg PO HS #90 tab-caps 06/09/19 11/01/21 History dofetilide 250 mcg capsule 250 mcg PO BID 06/09/19 11/01/21 History latanoprost 0.005 % eye drops 1 drp ophthalmic (eye) HS 06/09/19 11/01/21 History metoprolol succinate 25 mg 25 mg PO DAILY #90 tab-caps 06/09/19 11/01/21 History tablet,extended release 24 hr lisinopril 20 mg tablet See Rx Instructions .Route 06/13/21 11/01/21 Rx .COMPLEX #90 tabs timolol maleate 0.5 % eye drops 1 drp ophthalmic (eye) DAILY 09/04/21 11/01/21 History rivaroxaban 20 mg tablet (Xarelto) 20 mg PO DAILY #90 tab-caps 10/03/21 10/31/21 Rx pravastatin 40 mg tablet 40 mg PO DAILY #90 tabs 10/24/21 11/01/21 Rx Eyepromise Restore 1 tab PO BID 10/30/21 11/01/21 History tamsulosin 0.4 mg capsule (Flomax) 0.4 mg PO DAILY #4 caps 10/30/21 11/01/21 Rx Exam Const General: cooperative Neck Neck: supple Resp Effort & Inspection: normal respiratory effort Auscultation: clear to auscultation bilaterally Cardio Rate: regular rate Rhythm: regular rhythm GI Inspection: normal to inspection Neuro General: patient alert, patient awake and patient oriented x3 Results Last Vital Signs Temp 36.5 C 11/01/21 08:57 Pulse 65 11/01/21 08:57 Resp 14 11/01/21 08:57 BP 102/68 11/01/21 08:57 Pulse Ox 96 11/01/21 08:57
[2021-11-01] MEDS: ceFAZolin 2 GM/50 ML BAG IVPB (11:57)
[2021-11-01] MEDS: Lidocaine 2% Jelly 6 ML SYR (12:00)
--- NOTE | 2021-11-01 12:39 | W.PM.DSUDISC ---
Discharge Plan Disposition Patient Disposition: HOME Condition: Good Discharge Details Reason For Visit: ureteroscopy Attending Provider: Amaury Deutsch Primary Care Provider: Daron Hernández Home Meds and New Rx's Prescriptions: New tramadol 50 mg tablet 50 mg PO Q6H PRNQty: 15 0RF Rx Instructions: may take along with NSAIDs and Tylenol No Action timolol maleate 0.5 % drops 1 drp ophthalmic (eye) DAILY Rx Instructions: 1 drop each eye every a.m omega-3 fatty acids-fish oil 1 EACH capsule 1 ea PO DAILY Qty: 270 Label Comments: daily 01/12/13 dofetilide 250 mcg capsule 250 mcg PO BID amlodipine 5 mg tablet 10 mg PO HS Qty: 90 latanoprost 0.005 % drops 1 drp Ophthalmic HS metoprolol succinate 25 mg tablet extended release 24 hr 25 mg PO DAILY Qty: 90 lisinopril 20 mg tablet See Rx Instructions .ROUTE .COMPLEX Qty: 90 3RF Dose Instruction: TAKE 1 TABLET AT BEDTIME Rx Instructions: TAKE 1 TABLET AT BEDTIME Xarelto 20 mg tablet 20 mg PO DAILY Qty: 90 3RF pravastatin 40 mg tablet 40 mg PO DAILY Qty: 90 3RF Eyepromise Restore 1 tab PO BID tamsulosin [Flomax] 0.4 mg capsule 0.4 mg PO DAILY Qty: 4 0RF Discharge Instructions Additional Instructions: followup 3 to 7 days for stent removal - tell my office pt has string on stent no need for scheduled cystoscopy in November - reschedule for 6 months followup appt @6 weeks for renal US - will need to be done in diagnostic imaging, not in office may restart Xaralto when urine no longer bloody Activity:: Activity as Tolerated Shower/Bathe:: 24 hours Diet:: As Tolerated Discharge Orders Discharge Orders: Discharge Order (Routine); Ordered 11/01/21 Ordered By: Amaury Deutsch DS: Diagnosis Discharge Diagnosis (1) Calculus of distal right ureter: Status: Acute
--- NOTE | 2021-11-01 12:48 | W.PM.OP ---
Date of service: 11/01/21 Time of Service: 12:49 Operative Note Operative Note DATE OF PROCEDURE: 11/01/21 PRE-OP DIAGNOSIS: Right ureteral stone POST-OP DIAGNOSIS: same PROCEDURE: cystoscopy, right retrograde pyelogram, right ureteroscopy with holmium laser lithotripsy, extraction of stone fragments, insert right ureteral stent SURGEON: Amaury Deutsch ANESTHESIA TYPE: General:No Airway Refer to Anesthesia Record ESTIMATED BLOOD LOSS: 10 PATHOLOGY: other (stone for chemical analysis) COMPLICATIONS: None Patient was transported to: PACU Patient's condition: stable Implants: 4.8 Azerbaijani by 22 to 30 cm right ureteral stent Indications: This is an 81-year-old gentleman who is followed for urothelial cell carcinoma of the bladder. He presented to the emergency department with right abdominal and back pain. He was found to have a right distal ureteral stone. He presents now for stone manipulation. Findings: Right distal ureteral stone Procedure Description: The patient was given a dose of IV antibiotics and brought to the operating room on 11/01/2021. After successful induction of general anesthesia, he was placed in the dorsal lithotomy position. His genitalia was prepped and draped. 2% Xylocaine jelly was instilled into the urethra to act as a local anesthetic. The 22 Azerbaijani rigid cystoscope was passed through the urethra into the bladder. The bladder and urethra were inspected with a 30 degree lens. The pendulous, bulbar and membranous urethra appeared normal with no strictures. The prostatic urethra showed some lateral lobe enlargement and median lobe. No papillary lesions were seen on the prostatic urethral mucosa. The bladder neck was entered and the bladder mucosa was inspected. Both ureteral orifices appeared normal with no blood coming from either side. No papillary bladder lesions worrisome for bladder carcinoma were identified. The right ureteral orifice was cannulated with a 6 Azerbaijani access catheter. Retrograde film was obtained by injecting Omnipaque through the access catheter under fluoroscopic guidance. There was extreme distal J hooking of the right ureter and a filling defect just proximal to the submucosal tunnel. I was initially unable to pass the access catheter above the level of the stone, but I was able to pass a Glidewire through the lumen of the catheter and maneuvered the wire up the ureter. Once I did so, a large amount of fluid containing debris was seen draining from the right ureteral orifice. I removed the access catheter and cystoscope leaving the wire in place. I then passed a semirigid ureteroscope through the urethra and into the bladder. I was able to maneuver the scope into the right distal ureter. A stone was visualized and was treated with a 365 holmium laser fiber. We used a power setting of 200 and a rate of 8. The stone was dusted and fragmented. The fragments were grasped in a [employer] stone basket and removed in its entirety. The stones were sent to pathology for chemical analysis. I then passed a 4.8 Azerbaijani variable length stent over the indwelling wire. The proximal end of the stent was curled in the renal pelvis and the distal end was curled within the bladder. We left the safety string in place and brought the strings through the urethra where we anchored it to the dorsum of the penis. The patient tolerated this procedure well with no complications.
--- NOTE | 2021-11-01 12:50 | DI.RAD_ITS ---
Exam(s) XR RETROGRADE IN OR EXAM: XR RETROGRADE IN OR CLINICAL HISTORY: right ureteral stone. TECHNIQUE: 2D and realtime digital imaging was performed. COMPARISON: No exams were available for comparison FINDINGS: Fluoroscopy was provided for Dr. Deutsch for guidance with performing a retrograde examination. Please see procedure note for details. Fluoro time: 37.9 seconds RADIATION DOSE DELIVERED: Frankyr= 14.7 mGy
--- NOTE | 2021-11-01 13:33 | W.ANESPOSTOP ---
Postoperative Evaluation Date, Time and Location Date Performed: 11/01/21 Time Performed: 13:00 Patient Location: PACU Vital Signs Most Recent Imported Vital Signs: Most Recent Vital Signs Temp Pulse Resp BP Pulse Ox 36.5 C 93 H 12 95/63 L 92 11/01/21 13:00 11/01/21 13:00 11/01/21 13:00 11/01/21 13:00 11/01/21 13:00 Pain Score Most Recent Pain Score: Most Recent Pain Score Pain Level 3 11/01/21 08:57 Assessment Mental Status: Awake (Alert & Oriented to Patient Baseline) Airway and Respiratory Function: Patent airway with normal (patient baseline) respiratory exam Cardiovascular Function: Hemodynamically Stable Hydration Status: Adequately Hydrated Nausea & Vomiting: No Nausea or Vomiting Pain: Pain is tolerable per patient Peripheral Nerve Block: Patient did not receive a nerve block
[2021-11-07 19:28] LABS: Source: Ureter
== END 2021-11-01 14:36 | disposition home or self-care (01) ==
PROVIDERS: PCP Nurse Practitioner Family; Visit Provider Urology
PROC: (CPT 52356; principal; 2021-11-01 10:15)
DX: N20.1 Calculus of ureter (principal); I48.0 Paroxysmal atrial fibrillation; I10 Essential (primary) hypertension; R73.9 Hyperglycemia, unspecified; Z08 Encounter for follow-up examination after completed treatment for malignant neoplasm; Z85.51 Personal history of malignant neoplasm of bladder
CPT/HCPCS: 52356; 74420; 82365; J0690; J1885; J2405

== ENCOUNTER → 2021-11-05 14:14 | Outpatient (BNVA) | payer MEDICARE, SELFPAY | PROVIDERS: PCP Nurse Practitioner Family; Referring Provider Nurse Practitioner Family; Visit Provider Nurse Practitioner Gerontology | DX: Z85.51 Personal history of malignant neoplasm of bladder (principal); N20.1 Calculus of ureter | CPT/HCPCS: 99213 ==

== ENCOUNTER 2021-11-13 01:49 | Outpatient (CLI) | payer MEDICARE, SELFPAY ==
[2021-11-13 09:51] LABS: Anion Gap 5.5 mmol/L (3-11); BUN 20 mg/dL (7-18); CO2 33.5 mmol/L (21.0-32.0); CREATININE 0.8 mg/dL (0.70-1.30); Chloride 103 mmol/L (98-107); Glucose 88 mg/dL (74-106); Magnesium 1.7 mg/dL (1.8-2.4); Potassium 3.8 mmol/L (3.5-5.1); Sodium 142 mmol/L (136-145)
== END 2021-11-13 01:50 | disposition home or self-care (01) ==
LOC: LBO 01:50
PROVIDERS: PCP Nurse Practitioner Family; Visit Provider Internal Medicine Cardiovascular Disease
DX: I48.0 Paroxysmal atrial fibrillation (principal); Z51.81 Encounter for therapeutic drug level monitoring; Z79.899 Other long term (current) drug therapy
CPT/HCPCS: 36415; 80048; 83735

== ENCOUNTER → 2022-01-10 01:53 | Outpatient (CLI) | payer MEDICARE, SELFPAY ==
--- NOTE | 2022-01-10 07:30 | DI.US_ITS ---
Exam(s) US RENAL EXAM: US RENAL CLINICAL HISTORY: r/o hydronephrosis after ureteroscopy N20.1 CALCULUS OF URETER. TECHNIQUE: Rogers scale, color and spectral Doppler were used. COMPARISON: CT CT ABDOMEN PELVIS W from 10/30/2021 FINDINGS: Renal size in cm: Right: 12.7. Left: 13.9. Echogenicity: Normal. Hydronephrosis: No. Cyst or mass: Bilateral simple renal cysts. The largest is on the right and measures 1.6 x 1.4 x 1.7 cm. No follow-up is recommended. Nephrolithiasis: No. Other findings: None. Bladder:Normal. Ureteral jets: Right: Visualized and unremarkable. Left: Visualized and unremarkable. Prevoid vol:67 cc Postvoid vol:The patient was unable to void. Prostate: Prostate gland appears enlarged and impinges upon the base of the urinary bladder. Renal color flow: Symmetric and within normal limits. IMPRESSION: 1. No evidence of hydronephrosis. 2. Bilateral renal cysts. No follow-up is recommended. DATA REPOSITORY:
== END ==
PROVIDERS: PCP Nurse Practitioner Family; Visit Provider Urology
DX: N20.1 Calculus of ureter (principal); N28.1 Cyst of kidney, acquired
CPT/HCPCS: 76770

== ENCOUNTER → 2022-01-22 07:51 | Outpatient (BNVA) | payer MEDICARE, SELFPAY | PROVIDERS: PCP Nurse Practitioner Family; Referring Provider Nurse Practitioner Family; Visit Provider Urology | DX: N20.1 Calculus of ureter (principal) | CPT/HCPCS: 99214 ==

== ENCOUNTER → 2022-03-28 12:18 | Outpatient (CLI) | payer MEDICARE, SELFPAY ==
--- NOTE | 2022-03-28 12:00 | DI.RAD_ITS ---
Exam(s) XR CHEST 2V PA LATERAL EXAM: XR CHEST 2V PA LATERAL CLINICAL HISTORY: Cough, SOB, fatigue, URI R06.02 SOB R05.9 COUGH J06.9 URI. TECHNIQUE: 2D digital imaging was performed. COMPARISON: CR CHEST 2 VIEWS PA,LAT from 08/09/[address] ABDOMEN PELVIS W from 10/30/2021 FINDINGS: 2 views: There is mild cardiomegaly. Mediastinum not widened. There are no infiltrates. No evidence of pulmonary edema. On the lateral view there is a suggestion of slight blunting of the costophrenic angles may indicate a small amount of pleural fluid bilateral ly. IMPRESSION: No acute pulmonary findings.Possible small bilateral pleural effusions. No airspace pulmonary edema. DATA REPOSITORY: RADIATION DOSE DELIVERED:
== END ==
PROVIDERS: PCP Nurse Practitioner Family; Visit Provider Nurse Practitioner Family
DX: J06.9 Acute upper respiratory infection, unspecified (principal); R05.9 Cough, unspecified; R06.02 Shortness of breath
CPT/HCPCS: 71046

== ENCOUNTER → 2022-05-07 08:41 | Outpatient (BNVA) | payer MEDICARE, SELFPAY | PROVIDERS: PCP Nurse Practitioner Family; Referring Provider Nurse Practitioner Family; Visit Provider Urology | DX: Z08 Encounter for follow-up examination after completed treatment for malignant neoplasm (principal); Z85.51 Personal history of malignant neoplasm of bladder | CPT/HCPCS: 52000; 81003 ==

== ENCOUNTER 2022-05-15 11:11 | Outpatient (CLI) | payer MEDICARE, SELFPAY ==
--- NOTE | 2022-05-15 09:30 | DI.RAD_ITS ---
Exam(s) XR FOOT LT COMPLETE EXAM: XR FOOT LT COMPLETE CLINICAL HISTORY: L foot pain, hammertoe, extensor tendinitis, leg edema,M20.42, M77.8, R60.0. TECHNIQUE: 2D digital imaging was performed. Three views. COMPARISON: No exams were available for comparison FINDINGS: BONES: No acute fracture is present. No bony destructive lesion is seen. Heel spurs. Some calcific ation in plantar fascia. Plantar arch is maintained. JOINTS: No dislocation present. Degenerative changes 1st MTP joint. Hammertoe deformities greatest of the 2nd toe. Previous resection of distal aspect of the 4th proximal phalanx. Spurring noted be tween bases of 3rd and 4th metatarsals. SOFT TISSUE: Dorsal swelling over metatarsal region. Swelling around ankle. IMPRESSION: Degenerative changes and soft tissue swelling DATA REPOSITORY: RADIATION DOSE DELIVERED:
== END 2022-05-15 11:31 ==
LOC: DI 11:12
PROVIDERS: PCP Nurse Practitioner Family; Visit Provider Podiatrist Foot & Ankle Surgery
DX: M20.42 Other hammer toe(s) (acquired), left foot (principal); M77.8 Other enthesopathies, not elsewhere classified; R60.0 Localized edema; M19.072 Primary osteoarthritis, left ankle and foot
CPT/HCPCS: 73630

== ENCOUNTER 2022-07-23 12:17 | Outpatient (CLI) | payer MEDICARE, SELFPAY ==
--- NOTE | 2022-07-23 10:30 | DI.RAD_ITS ---
Exam(s) XR CHEST 2V PA LATERAL EXAM: XR CHEST 2V PA LATERAL CLINICAL HISTORY: increased SOB R06.02 EDEMA R60.0 TECHNIQUE: 2D digital imaging was performed of the chest. Two images were obtained. PA and lateral views were obtained. COMPARISON: CR XR CHEST 2V PA LATERAL from 03/28/2022 FINDINGS: MEDIASTINUM: Normal. HEART: Cardiomegaly. PULMONARY VASCULATURE: Normal. LUNGS: No focal consolidating infiltrates. PLEURAL SPACE: There is blunting of the posterior costophrenic angles bilaterally. This was present on 03/28/2022. This may represent scarring or small pleural effusions. BONE:Within normal limits for the patient's age. OTHER FINDINGS:Normal. IMPRESSION: 1. Cardiomegaly. 2. Scarring versus small stable pleural effusions. 3. No focal infiltrates. DATA REPOSITORY: RADIATION DOSE DELIVERED:
== END 2022-07-23 12:37 ==
LOC: DI 12:18
PROVIDERS: PCP Nurse Practitioner Family; Visit Provider Nurse Practitioner Family
DX: R06.02 Shortness of breath (principal); R60.0 Localized edema
CPT/HCPCS: 71046

== ENCOUNTER 2022-07-23 16:17 | Outpatient (REF) | payer MEDICARE, SELFPAY ==
[2022-07-23 14:00] LABS: Abs Immature Grans 0.03 10^3/uL (0.0-0.06); Absolute Basophil Count 0.04 10^3/uL (0.0-0.2); Absolute Eosinophil Count 0.06 10^3/uL (0.0-0.7); Absolute Lymphocyte Count 1.42 10^3/uL (1.2-3.4); Absolute Monocyte Count 0.62 10^3/uL (0.1-0.8); Absolute Neutrophil Count 5.59 10^3/uL (1.2-6.7); Basophils % 0.5; Eosinophils % 0.8; HCT 46.3 % (40.0-50.0); HGB 15.7 g/dL (13.5-17.5); Immature Grans % 0.4; Lymphocytes % 18.3; MCH 31.7 pg (27.0-33.0); MCHC 33.9 % (32.0-36.0); MCV 94 fL (80-95); MPV 9.9 fL (8.0-11.0); Platelet Count 239 10^3/uL (130-400); RBC 4.95 10^6/uL (4.36-5.78); RDW 13.3 % (11.8-14.1); RDW-SD 45.8 fL; WBC 7.76 10^3/uL (4.4-10.8)
[2022-07-23 15:22] LABS: ALT 25 U/L (16-63); AST 16 U/L (15-37); Albumin 3.7 g/dL (3.4-5.0); Alkaline Phosphatase 63 U/L (46-116); BUN 21 mg/dL (7-18); Bilirubin, Total 1.1 mg/dL (0.2-1.0); CREATININE 0.8 mg/dL (0.70-1.30); Calcium 9.3 mg/dL (8.5-10.1); Chloride 104 mmol/L (98-107); Estimated GFR 88.36 (mL/min/1.73m2); Glucose 107 mg/dL (74-106); NT-proBNP 1727 pg/mL (<300); Sodium 141 mmol/L (136-145); TSH (W/Ref FT4) 3.33 uIU/mL (0.36-3.74); Total Protein 7.2 g/dL (6.4-8.2)
[2022-07-23 15:37] LABS: D-Dimer 1243 ng/mlFEU (<500)
== END 2022-07-23 16:18 | disposition home or self-care (01) ==
LOC: LBN 16:17
PROVIDERS: PCP Nurse Practitioner Family; Visit Provider Nurse Practitioner Family
DX: E78.5 Hyperlipidemia, unspecified (principal); R06.02 Shortness of breath; R60.0 Localized edema
CPT/HCPCS: 80053; 83880; 84443; 85025; 85379

== ENCOUNTER 2022-07-24 18:52 | Emergency (ER) | payer MEDICARE, SELFPAY ==
[2022-07-24] VITALS (39 sets, daily range): BP systolic 114–139; BP diastolic 62–90; PULSE 66–90; RESP 15–30; TEMP 36.9; O2SAT 87–95
--- NOTE | 2022-07-24 18:45 | RT.EKG_ITS ---
APPROVED REPORT Exam: Resting ECG Reason for Exam: SOB Patient Location: E HR:77 bpm ECG Measurements Heart Rate 77 AXIS KS 197 P -10 QRSd 129 QRS -67 QT 424 T 58 QTc 474 Conclusion Sinus rhythm...normal P axis, V-rate 60- 99 Multiform ventricular premature complexes...short R-R, variable morphology Left bundle branch block...QRSd>120, broad/notched R sinus rhtyhm, left axis, LBBB, PVCs
--- NOTE | 2022-07-24 19:00 | DI.CT_ITS ---
Exam(s) CT CHEST PE CTA EXAM: CT CHEST PE CTA CLINICAL HISTORY: SOB, Elevated Dimer. TECHNIQUE: Imaging Protocol: Axial CT angiography was performed with multi-slice acquisition and mu lti-planar and/or 3D reconstructions. CONTRAST MATERIAL: Intravenous: Omnipaque 350 contrast volume:99 mL COMPARISON: CT CT ABDOMEN PELVIS W from 10/30/2021 FINDINGS: The examination is limited due to patient motion artifact. Tracheobronchial tree: Patent where visualized. Pulmonary parenchyma: Centrilobular emphysematous changes are present in the lungs. There is a calci fied granuloma in the left upper lobe. There are bilateral pleural effusions, moderate on the right small on the left. There is associated subjacent infiltrate which may represent atelectasis or pneum onia. No architectural distortion. Pulmonary Arteries: No evidence of filling defect to suggest pulmonary emboli. Mediastinum and Nelly: No dominant adenopathy or fluid collection. The esophagus is unremarkable. Visualized thyroid gland: Unremarkable. Pleura: There is a small focus of air in the right hemithorax which appears to be in the pleural spac e. (Series 8, image 343). Heart: Mild cardiomegaly. Moderate coronary artery calcification is present. No pericardial effusio n. Aorta: Thoracic aorta non-dilated. Due to the bolus timing in the thoracic aorta is not adequately op acified. Atherosclerosis is present. Upper abdomen: There again seen multiple hepatic cysts. There is a stable left renal cyst. No foll ow-up is recommended. There is mild stranding seen around the gallbladder. Soft tissues: Mild bilateral gynecomastia. Bones: Within normal limits for the patient's age. IMPRESSION: 1. No evidence of pulmonary embolism or thoracic aortic aneurysm. 2. Bilateral pleural effusions with subjacent infiltrates which may represent atelectasis or pneumoni a. 3. Small focus of air which appears to be in the pleural space suspicious for tiny right pneumothorax . 4. Mild stranding around the gallbladder. Please correlate for any suggestive of acute cholecystitis . If clinically appropriate, gallbladder ultrasound may be obtained. RADIATION DOSE DELIVERED: 506.64mGy.cm Total DLP DATA REPOSITORY: All CT scans at this facility are submitted to the National Radiology Data Registry (NRDR) Dose Index Registry (DIR) with the [employer] (ACR). RADIATION OPTIMIZATION: All CT scans at this facility use at least one of these dose optimization te chniques: automated exposure control; mA and/or kV adjustment per patient size (includes targeted exa ms where dose is matched to clinical indication); or iterative reconstruction.
--- NOTE | 2022-07-24 19:28 | W.ED.GENAD ---
Discharge Plan Disposition Patient Disposition: Home Discharge Details Clinical Impression: Pleural effusion due to CHF (congestive heart failure) Primary Care Provider: Daron Hernández ED Provider: Kate Gonzalez Home Meds and New Rx's Prescriptions: New furosemide [Lasix] 20 mg tablet 20 mg PO DAILY Qty: 14 0RF Rx Instructions: Take 1 tablet by mouth daily in a.m. Continued albuterol sulfate 90 mcg/actuation HFA aerosol inhaler 2 inh inhalation Q6H PRN (Reason: shortness of breath or wheezing) Qty: 18 4RF (DME) BreatheRite MDI Spacer Spacer See Rx Instructions .Route Qty: 1 0RF Rx Instructions: As directed timolol maleate 0.5 % drops 1 drp ophthalmic (eye) DAILY Rx Instructions: 1 drop each eye every a.m omega-3 fatty acids-fish oil 1 EACH capsule 1 ea PO DAILY Qty: 270 Patient Comments: daily 01/12/13 dofetilide 250 mcg capsule 250 mcg PO BID amlodipine 5 mg tablet 10 mg PO HS Qty: 90 latanoprost 0.005 % drops 1 drp Ophthalmic HS metoprolol succinate 25 mg tablet extended release 24 hr 50 mg PO DAILY Qty: 90 lisinopril 20 mg tablet See Rx Instructions .ROUTE .COMPLEX Qty: 90 3RF Dose Instruction: TAKE 1 TABLET AT BEDTIME Rx Instructions: TAKE 1 TABLET AT BEDTIME Xarelto 20 mg tablet 20 mg PO DAILY Qty: 90 3RF pravastatin 40 mg tablet 40 mg PO DAILY Qty: 90 3RF Eyepromise Restore 1 tab PO BID Discharge Instructions Instructions: Pleural Effusion (ED) Additional Instructions: Please take the Lasix daily in the a.m. as directed. Close follow-up with your primary care within the next 2 to [address] results and diuretic medication. This medication will have you increased urination. CT shows that you have was called a pleural effusion on the right side. Follow up with primary care provider in 2-3 days. Return to ED sooner if any worsening shortness of breath, chest pain, dizziness, worsening swelling in your legs or concerns. Decrease sodium intake. Referrals: Daron Hernández, STOCK MANAGER [Primary Care Provider] - 2 days Medical Decision Making 82-year-old male presents to the ER with a chief complaint of shortness of breath over the last 2 to 3 days. He was seen by his PCP at yesterday and had some labs drawn and had an elevated D-dimer and proBNP and was referred here to the ER for further evaluation. His does note that she has noticed increase in swelling of his feet over the last 2 weeks approximately. He is wearing compression stocks at this time. He denies any chest pain denies any fever chills or productive cough. He does have a past medical history of paroxysmal atrial fibrillation, hyperlipidemia, being overweight, BPH, bladder cancer. He is not currently on a diuretic. Surgical history includes appendectomy carpal tunnel release, and open fracture to surgery Patient is able to speak in full sentences at this time. He is 94% at rest, does report increased shortness of breath with exertion. Work-up ordered including CBC CMP, troponin x2, proBNP CT chest rule out PE. CBC within normal limits, BUN 24 GFR 67, glucose 144, proBNP 1708. CT shows no PE, there is right-sided and left-sided pleural effusions and a possible trace pneumothorax. We will give 40 of Lasix IV. 2157: Patient reevaluation he reports that his shortness of breath has gotten better he was up walking to the bathroom and has had episode of urine post the Lasix. He would like to go home if possible. I did discuss the CT results with him and his who verbalized understanding. All their questions were answered to the best my ability. I will send patient home with Lasix daily and close follow-up with his primary care provider. Patient reports that he will speak with his PCP tomorrow. I did discuss strict return instructions to return for any worsening short of breath, pain, dizziness or any concerns. Second troponin within normal limits. Patient discharged in hemodynamically stable condition. O2 sat 94% on room air. He reports feeling much better after the Lasix. Patient was given a prescription for 14 days of 20 mg of Lasix. This text was generated using [employer] dictation system, please disregard any oddities of phrase or misspellings. Imaging Data Radiologic Study: Imaging: CT Scan Radiologist's impression: FINDINGS: Pulmonary arteries: Normal.No pulmonary emboli. Aorta: No aortic aneurysm. No aortic dissection. Lungs: Mild emphysema Mild subsegmental atelectasis. Pleural spaces: Small right and minimal left pleural effusions. Minimal air in the right pleural space axial image 343 series 8 Heart: Moderate cardiomegaly. Coronary calcifications No pericardial effusion. Lymph nodes: Prominent mediastinal lymph nodes. Bones/joints: Unremarkable. No acute fracture. Soft tissues: Unremarkable. Mild infiltration surrounding the gallbladder. Simple cysts in the liver and left kidney Page 2 of 2 No pulmonary emboli observed Right greater than left pleural effusions and trace right-sided pneumothorax suspected as noted Abnormal gallbladder as described. Correlate clinically for acute cholecystitis. Further evaluation with right upper quadrant ultrasound as clinically indicated Thank you for allowing us to participate in the care of your patient. Dictated and Authenticated by: Alexy Lin MD Lab Data Lab results reviewed: Yes I reviewed the patient's lab results. Labs: Laboratory Tests Range/Units 07/24/22 07/24/22 19:24 19:24 WBC (4.4-10.8) 10^3/uL 8.53 RBC (4.36-5.78) 10^6/uL 5.30 Hgb (13.5-17.5) g/dL 16.2 Hct (40.0-50.0) % 49.5 MCV (80-95) fL 93 MCH (27.0-33.0) pg 30.6 MCHC (32.0-36.0) % 32.7 RDW (11.8-14.1) % 13.3 Plt Count (130-400) 10^3/uL 233 MPV (8.0-11.0) fL 9.2 Immature Gran % 0.2 Neutrophils % 65.2 Lymphocytes % 25.1 Monocytes % 7.5 Eosinophils % 1.3 Basophils % 0.7 Nucleated RBC % (0.0-0.3) % 0.0 Absolute Neutrophils (1.2-6.7) 10^3/uL 5.56 Absolute Lymphocytes (1.2-3.4) 10^3/uL 2.14 Absolute Monocytes (0.1-0.8) 10^3/uL 0.64 Absolute Eosinophils (0.0-0.7) 10^3/uL 0.11 Absolute Basophils (0.0-0.2) 10^3/uL 0.06 Sodium (136-145) mmol/L 141 Potassium (3.5-5.1) mmol/L 3.7 Chloride (98-107) mmol/L 105 Carbon Dioxide (21.0-32.0) mmol/L 32.1 H Anion Gap (3-11) mmol/L 3.9 BUN (7-18) mg/dL 24 H Creatinine (0.70-1.30) mg/dL 1.1 Est GFR (CKD-EPI 2020) (mL/min/1.73m2) 67.02 Glucose (74-106) mg/dL 144 H Calcium (8.5-10.1) mg/dL 9.7 Magnesium (1.8-2.4) mg/dL 2.0 Total Bilirubin (0.2-1.0) mg/dL 0.8 AST (15-37) U/L 17 ALT (16-63) U/L 25 Alkaline Phosphatase (46-116) U/L 82 Troponin I (<or=60) ng/L < 50 NT-Pro-B Natriuret Pep (<300) pg/mL 1708 H Total Protein (6.4-8.2) g/dL 8.4 H Albumin (3.4-5.0) g/dL 3.9 HPI General Mode of arrival: ambulatory. Date/Time Provider Initiated Documentation: 07/24/22 18:53. Limitations to Documentation: no limitations. Information obtained by: patient, RN notes reviewed and old records reviewed. HPI Narrative: 82-year-old male presents to the ER with a chief complaint of shortness of breath over the last 2 to 3 days. He was seen by his PCP at yesterday and had some labs drawn and had an elevated D-dimer and proBNP and was referred here to the ER for further evaluation. His does note that she has noticed increase in swelling of his feet over the last 2 weeks approximately. He is wearing compression stocks at this time. He denies any chest pain denies any fever chills or productive cough. He does have a past medical history of paroxysmal atrial fibrillation, hyperlipidemia, being overweight, BPH, bladder cancer. He is not currently on a diuretic. Surgical history includes appendectomy carpal tunnel release, and open fracture to surgery. Related Data Home Medications Medication Instructions Recorded Confirmed omega-3 fatty acids-fish oil 300 1 ea PO DAILY ##270 09/02/12 07/24/22 mg-1,000 mg capsule amlodipine 5 mg tablet 10 mg PO HS #90 tab-caps 06/09/19 07/24/22 dofetilide 250 mcg capsule 250 mcg PO BID 06/09/19 07/24/22 latanoprost 0.005 % eye drops 1 drp ophthalmic (eye) HS 06/09/19 07/24/22 metoprolol succinate 25 mg 50 mg PO DAILY #90 tab-caps 06/09/19 07/24/22 tablet,extended release 24 hr lisinopril 20 mg tablet See Rx Instructions .Route 06/13/21 07/24/22 .COMPLEX #90 tabs timolol maleate 0.5 % eye drops 1 drp ophthalmic (eye) DAILY 09/04/21 07/24/22 rivaroxaban 20 mg tablet (Xarelto) 20 mg PO DAILY #90 tab-caps 10/03/21 07/24/22 pravastatin 40 mg tablet 40 mg PO DAILY #90 tabs 10/24/21 07/24/22 Eyepromise Restore 1 tab PO BID 10/30/21 07/24/22 albuterol sulfate 90 mcg/actuation 2 inh inhalation Q6H PRN shortness 03/28/22 07/24/22 aerosol inhaler of breath or wheezing #18 grams inhalational spacing device #1 ea 03/28/22 06/24/22 (BreatheRite MDI Spacer) furosemide 20 mg tablet (Lasix) 20 mg PO DAILY #14 tabs 07/24/22 Previous Rx's Medication Instructions Recorded lisinopril 20 mg tablet See Rx Instructions .Route 06/13/21 .COMPLEX #90 tabs rivaroxaban 20 mg tablet (Xarelto) 20 mg PO DAILY #90 tab-caps 10/03/21 pravastatin 40 mg tablet 40 mg PO DAILY #90 tabs 10/24/21 albuterol sulfate 90 mcg/actuation 2 inh inhalation Q6H PRN shortness 03/28/22 aerosol inhaler of breath or wheezing #18 grams inhalational spacing device #1 ea 03/28/22 (BreatheRite MDI Spacer) furosemide 20 mg tablet (Lasix) 20 mg PO DAILY #14 tabs 07/24/22 Allergies Allergy/AdvReac Type Severity Reaction Status Date / Time No Known Allergies Allergy Verified 07/24/22 19:05 General Stated Complaint: SOB DONNELL: 3 Review of Systems All systems reviewed & are unremarkable except as noted in HPI and below Cardiovascular Cardiovascular: Reports dyspnea and Reports dyspnea on exertion Respiratory Respiratory: Reports as per HPI, Reports dyspnea and Reports dyspnea on exertion PFSH All Active Problems (Updated 07/24/22 @ 22:02 by Kate Gonzalez NP) Pleural effusion due to CHF (congestive heart failure) (Acute) Shortness of breath (Acute) Extensor tendinitis of foot (Acute) Hammertoe of left foot (Acute) COVID (Acute) Paroxysmal atrial fibrillation (Chronic 09/14/15) Overweight (Chronic) Hyperlipidemia (Chronic) Family history of malignant neoplasm of prostate (Chronic) Essential hypertension (Chronic) BPH w urinary obs/LUTS (Acute) Bladder cancer (Acute) 2019-status post transurethral resection, recurrence also treated with resection, status post chemotherapy infusion followed by urology-[facility] Hyperglycemia (Acute) 08/2021, [id number] 5.8% Leg edema (Acute) c/w venous stasis Medical History Bladder stone Bucket handle tear of lateral meniscus of knee (02/27/07) left knee; repaired History of tobacco use Kidney stone Kidney stone Ureteral stone Surgical History Fracture, Open Treatment (~1970) RIGHT LEG History of appendectomy History of arthroscopy of knee Dr. Sweet; left knee; repair medial meniscus History of bunionectomy History of open reduction and internal fixation (ORIF) procedure 1969 Right leg Hx of appendectomy Hx of toe surgery arthritic ring toe left Open Carpal Tunnel release LEFT Status post bunionectomy Bilateral Status post carpal tunnel release Family History Mother , 97 Essential hypertension Hyperlipidemia Stroke Father , 93 Cancer Sister Essential hypertension Brother No problems noted. Maternal Grandfather , 67 No problems noted. Paternal Grandfather , 80+ Myocardial infarction Stroke Maternal Grandmother , 50 No problems noted. Paternal Grandmother , 50? No problems noted. Son No problems noted. Son No problems noted. Other History of tobacco use Social History Smoking/Tobacco Use Status: Former Tobacco Use tobacco type: cigarettes Quit Date: 08/29/04 Second Hand Exposure: Yes Smoking risk assessment performed?: Yes Alcohol Intake: current Alcohol Intake frequency: a few times a week Alcohol type: wine Drug use: Never Substance use type: does not use Caregiver/Support person: No Household members: spouse Housing: house Communication Needs: Corrective Lenses Do you need help understanding health information?: Rarely Pets and animals: No Sexually active: Yes Do you think of yourself as: straight/heterosexual Current gender identity: male What is your relationship status?: How often do you talk on the phone with friends or family?: twice per week How often do you get together with friends or relatives?: three or more times per week How often do you attend anglican or mandaeism services?: decline to answer Do you belong to any clubs or organized social groups?: yes Panel score (0-1 are the most socially isolated patients): 3 What type of physical activity do you participate in: none Frequency: does not exercise Debora/Catholic: Presbyterian Special debora needs: No Seatbelt use: never Helmet use: No 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 Appears stated age. Obese body habitus. Head: Normocephalic, no trauma. Eyes: Pupils PERRL, Red reflex noted, EOM's intact. Eyelids symmetrical without lesions, discharge, or swelling. ENT: Bilateral TM's WNL, External ear normal to inspection, no mastoid TTP, swelling, or erythema, Nasal turbinates WNL, no nasal discharge. Normal dentition, Posterior pharynx WNL, no exudate. Chest: RRR, Normal S1, S2, distal pulses intact. Resp: Lungs diminished in the bases bilaterally Abdomen: Soft, non-distended, Normoactive bowel sounds all 4 quads. Musculoskeletal: Normal gait, 5/5 strength to all four extremities. Patient appears dyspneic with ambulation, he does have 2+ pitting edema to his bilateral lower extremities he is wearing compression stockings at this time. Skin: No suspicious rashes or lesions. Capillary refill less than 2 sec. Neurologic: Cranial nerves II-XII intact. Alert and oriented x 3. Motor: No deficits noted. Sensory: Intact bilaterally all 4 extremities. Reflexes: DTR's intact bilaterally.. Hematologic/Lymphatic: No ecchymosis, no lymphadenopathy. Course Vital Signs Vital signs: Vital Signs Temperature 36.9 C 07/24/22 18:58 Pulse 75 07/24/22 18:58 Respiratory Rate 20 07/24/22 18:58 Blood Pressure 121/62 07/24/22 18:58 Pulse Oximetry 94 07/24/22 18:58 Temperature 36.9 C 07/24/22 18:58 Temperature Source Skin 07/24/22 18:58 Pulse 75 07/24/22 18:58 Respiratory Rate 20 07/24/22 18:58 Blood Pressure 121/62 07/24/22 18:58 Blood Pressure Position Sitting 07/24/22 18:58 Pulse Oximetry 94 07/24/22 18:58 Oxygen Delivery Method Room Air 07/24/22 18:58 Oxygen Flow Rate 0 07/24/22 18:58 Pain Level 0 07/24/22 18:58
[2022-07-24 19:38] LABS: Abs Immature Grans 0.02 10^3/uL (0.0-0.06); Absolute Basophil Count 0.06 10^3/uL (0.0-0.2); Absolute Eosinophil Count 0.11 10^3/uL (0.0-0.7); Absolute Lymphocyte Count 2.14 10^3/uL (1.2-3.4); Absolute Monocyte Count 0.64 10^3/uL (0.1-0.8); Absolute Neutrophil Count 5.56 10^3/uL (1.2-6.7); Basophils % 0.7; Eosinophils % 1.3; HCT 49.5 % (40.0-50.0); HGB 16.2 g/dL (13.5-17.5); Immature Grans % 0.2; Lymphocytes % 25.1; MCH 30.6 pg (27.0-33.0); MCHC 32.7 % (32.0-36.0); MCV 93 fL (80-95); MPV 9.2 fL (8.0-11.0); Monocytes % 7.5; Neutrophils % 65.2; Platelet Count 233 10^3/uL (130-400); RDW 13.3 % (11.8-14.1); RDW-SD 45.4 fL; WBC 8.53 10^3/uL (4.4-10.8)
[2022-07-24 20:01] LABS: ALT 25 U/L (16-63); AST 17 U/L (15-37); Albumin 3.9 g/dL (3.4-5.0); Alkaline Phosphatase 82 U/L (46-116); Anion Gap 3.9 mmol/L (3-11); BUN 24 mg/dL (7-18); Bilirubin, Total 0.8 mg/dL (0.2-1.0); CO2 32.1 mmol/L (21.0-32.0); CREATININE 1.1 mg/dL (0.70-1.30); Calcium 9.7 mg/dL (8.5-10.1); Chloride 105 mmol/L (98-107); Estimated GFR 67.02 (mL/min/1.73m2); Glucose 144 mg/dL (74-106); NT-proBNP 1708 pg/mL (<300); Potassium 3.7 mmol/L (3.5-5.1); Sodium 141 mmol/L (136-145); Total Protein 8.4 g/dL (6.4-8.2); Troponin I < 50 ng/L (<or=60)
[2022-07-24] MEDS: Normal Saline Flush 10 ML SYR IVP (20:54)
[2022-07-24] MEDS: Omnipaque 350 MG/ML 100 ML BTL IJ (20:56)
--- NOTE | 2022-07-24 21:18 | DI.VRAD_ITS ---
PROCEDURE INFORMATION: Exam: CTA Chest With Contrast Exam date and time: 07/24/2022 8:58 PM Age: 82 years old Clinical indication: Shortness of breath and other: Elevated dimer; Patient HX: SOB, elevated dimer TECHNIQUE: Imaging protocol: Computed tomographic angiography of the chest with contrast. 3D rendering (Not supervised by radiologist): MIP and/or 3D reconstructed images were created by the technologist. Contrast material: OMNIPAQUE 350; Contrast volume: 100 ml; Contrast route: INTRAVENOUS (IV); COMPARISON: CR XR CHEST 2V PA LATERAL 07/23/2022 10:47 AM FINDINGS: Pulmonary arteries: Normal.No pulmonary emboli. Aorta: No aortic aneurysm. No aortic dissection. Lungs: Mild emphysema Mild subsegmental atelectasis. Pleural spaces: Small right and minimal left pleural effusions. Minimal air in the right pleural space axial image 343 series 8 Heart: Moderate cardiomegaly. Coronary calcifications No pericardial effusion. Lymph nodes: Prominent mediastinal lymph nodes. Bones/joints: Unremarkable. No acute fracture. Soft tissues: Unremarkable. Mild infiltration surrounding the gallbladder. Simple cysts in the liver and left kidney IMPRESSION: No pulmonary emboli observed Right greater than left pleural effusions and trace right-sided pneumothorax suspected as noted Abnormal gallbladder as described. Correlate clinically for acute cholecystitis. Further evaluation with right upper quadrant ultrasound as clinically indicated Dictated and Authenticated by: Alexy Lin MD. Ordering:TREMAINE Love MD
[2022-07-24] MEDS: Furosemide 40 MG/4 ML VIAL IVP (21:33)
[2022-07-24 22:33] LABS: Troponin I < 50 ng/L (<or=60)
== END 2022-07-24 22:56 | disposition home or self-care (01) ==
PROVIDERS: Emergency Provider Registered Nurse Emergency; PCP Nurse Practitioner Family
DX: J90 Pleural effusion, not elsewhere classified (principal); I50.9 Heart failure, unspecified; I48.91 Unspecified atrial fibrillation; E66.9 Obesity, unspecified
CPT/HCPCS: 71275; 80053; 93005; 96374; 99285; 83735; 83880; 84484; 85025; 93010; 99284; J1940; J3490

== ENCOUNTER 2022-07-31 02:45 | Outpatient (CLI) | payer MEDICARE, SELFPAY ==
[2022-07-31 13:10] LABS: NT-proBNP 1189 pg/mL (<300)
== END 2022-07-31 02:46 | disposition home or self-care (01) ==
PROVIDERS: PCP Nurse Practitioner Family; Visit Provider Nurse Practitioner Family
DX: R06.02 Shortness of breath (principal)
CPT/HCPCS: 36415; 83880

== ENCOUNTER 2022-08-14 03:24 | Outpatient (CLI) | payer MEDICARE, SELFPAY ==
[2022-08-14 12:47] LABS: Potassium 3.4 mmol/L (3.5-5.1)
[2022-08-14 13:02] LABS: NT-proBNP 1831 pg/mL (<300)
== END 2022-08-14 03:25 | disposition home or self-care (01) ==
LOC: LOS 03:24
PROVIDERS: Family Medicine; PCP Nurse Practitioner Family; Visit Provider Nurse Practitioner Family
DX: I10 Essential (primary) hypertension (principal); I50.9 Heart failure, unspecified
CPT/HCPCS: 36415; 83880; 84132

== ENCOUNTER 2022-09-04 04:22 | Outpatient (CLI) | payer MEDICARE, SELFPAY ==
[2022-09-04 12:26] LABS: Potassium 3.4 mmol/L (3.5-5.1)
[2022-09-04 12:42] LABS: NT-proBNP 1793 pg/mL (<300)
== END 2022-09-04 04:23 | disposition home or self-care (01) ==
LOC: LOS 04:22
PROVIDERS: PCP Nurse Practitioner Family; Visit Provider Family Medicine
DX: I10 Essential (primary) hypertension (principal); I50.9 Heart failure, unspecified
CPT/HCPCS: 36415; 83880; 84132

== ENCOUNTER 2022-09-12 09:33 | Outpatient (CLI) | payer MEDICARE, SELFPAY ==
--- NOTE | 2022-09-12 09:30 | RT.EKG_ITS ---
APPROVED REPORT Exam: Resting ECG Reason for Exam: increased heart rate Patient Location: O HR:106 bpm ECG Measurements Heart Rate 106 AXIS FL [id number] P [id number] QRSd 120 QRS -66 QT 383 T 54 QTc 509 Conclusion Atrial fibrillation...? atrial activity Incomplete left bundle branch block...QRSd>110mS, terminal axis(-90,-1) Left axis
== END 2022-09-12 09:34 | disposition home or self-care (01) ==
LOC: DI.CM 09:34
PROVIDERS: PCP Nurse Practitioner Family; Visit Provider Nurse Practitioner Family
DX: R00.0 Tachycardia, unspecified (principal)
CPT/HCPCS: 93010

== ENCOUNTER → 2022-10-07 14:15 | Outpatient (BNVA) | payer MEDICARE, SELFPAY | PROVIDERS: PCP Nurse Practitioner Family; Referring Provider Nurse Practitioner Family; Visit Provider Urology | DX: N20.0 Calculus of kidney (principal) | CPT/HCPCS: 76775; 81003 ==

== ENCOUNTER 2022-10-23 02:48 | Outpatient (CLI) | payer MEDICARE, SELFPAY ==
--- NOTE | 2022-10-23 06:15 | DI.CT_ITS ---
Exam(s) CT ABDOMEN PELVIS WO EXAM: CT ABDOMEN PELVIS WO CLINICAL HISTORY: kidney stone,n20.0. TECHNIQUE: Imaging Protocol: Axial computed tomography images with coronal and sagittal reformatted images were created and reviewed. COMPARISON: CT CT ABDOMEN PELVIS WO/W from 07/28/[address] ABDOMEN PELVIS W from 10/30/[address] CHEST PE CTA from 07/24/2022 US POCUS EXAM from 10/07/2022 FINDINGS: ABDOMEN: Lung Bases: There is a persistent small right pleural effusion which has decreased in size. There is a tiny residual left pleural effusion which is also decreased since the prior examination from 2022. Small linear infiltrates are seen in the lung bases, right greater than left. Liver: Normal density. There are multiple cysts seen within the liver. There is a stable cystic lesi on in the left lobe of the liver with thin incomplete peripheral calcification. No new hepatic lesio ns are seen. There is a stable calcification in the right lobe of the liver. Gallbladder and biliary tract: No radiodense calculus or biliary ductal dilation. Pancreas: Normal density, no abnormal calcifications or inflammatory process. There is a stable 9 mm cyst in body of the pancreas. Spleen: Normal. Kidneys: Normal size, contour and axis.There is a 2 mm nonobstructing stone in the lower pole of the right kidney. There is stable bilateral renal cysts. No follow-up is recommended. Adrenal glands: No mass is seen. Lymph nodes: Within normal limits. Abdominal Aorta: Abdominal portion non-dilated. Atherosclerosis. PELVIS: Bladder:There is thickening of the wall of the urinary bladder. The urinary bladder is incompletely distended. Bowel: No obstruction or bowel wall thickening. Appendix is unremarkable. Peritoneal cavity: No ascites, collection or mesenteric inflammatory response. No free air. Reproductive organs: The prostate gland is enlarged and impinges upon the base of the urinary bladder . Bones: Within normal limits. Soft Tissues: Postsurgical changes are seen in the right anterior abdominal wall. IMPRESSION: 1. 2 mm nonobstructing stone in the lower pole of the right kidney. 2. Thickening of the wall of the urinary bladder. This may be due to underdistention. Inflammatory/ infectious process cannot be excluded. Chronic bladder outlet obstruction or neoplasm may also be co nsidered. Please correlate clinically. 3. Enlarged prostate gland. 4. Stable hepatic cysts.. 5. Interval decrease in size of the right pleural effusion and near complete resolution of the left p leural effusion. Bilateral basilar atelectasis/scarring/infiltrate. RADIATION DOSE DELIVERED: Total DLP DATA REPOSITORY: All CT scans at this facility are submitted to the National Radiology Data Registry (NRDR) Dose Index Registry (DIR) with the [employer] (ACR). RADIATION OPTIMIZATION: All CT scans at this facility use at least one of these dose optimization te chniques: automated exposure control; mA and/or kV adjustment per patient size (includes targeted exa ms where dose is matched to clinical indication); or iterative reconstruction.
== END 2022-10-23 03:08 ==
LOC: DI 02:48
PROVIDERS: PCP Family Medicine; Visit Provider Urology
DX: N20.0 Calculus of kidney (principal); N40.1 Benign prostatic hyperplasia with lower urinary tract symptoms; Q44.6 Cystic disease of liver
CPT/HCPCS: 74176

== ENCOUNTER → 2022-10-31 09:36 | Outpatient (BNVA) | payer MEDICARE, SELFPAY | PROVIDERS: PCP Family Medicine; Referring Provider Family Medicine; Visit Provider Urology | DX: N20.0 Calculus of kidney (principal) | CPT/HCPCS: 99442 ==

== ENCOUNTER 2022-11-07 13:45 | Outpatient (CLI) | payer MEDICARE, SELFPAY ==
--- NOTE | 2022-11-07 13:45 | RT.EKG_ITS ---
APPROVED REPORT Exam: Resting ECG Reason for Exam: CHF Patient Location: O HR:65 bpm ECG Measurements Heart Rate 65 AXIS SD 178 P 45 QRSd 139 QRS -72 QT 448 T 29 QTc 466 Conclusion Sinus arrhythmia...V-rate 58- 79, variation>10% Ventricular premature complex...V complex w/ short R-R interval Left bundle branch block...QRSd>120, broad/notched R
== END 2022-11-07 13:46 | disposition home or self-care (01) ==
LOC: DI.CM 13:45
PROVIDERS: PCP Family Medicine; Visit Provider Family Medicine
DX: I48.91 Unspecified atrial fibrillation (principal); I50.9 Heart failure, unspecified
CPT/HCPCS: 93010

== ENCOUNTER → 2023-02-11 00:47 | Outpatient (CLI) | payer MEDICARE, SELFPAY ==
--- NOTE | 2023-02-11 07:15 | DI.RAD_ITS ---
Exam(s) XR FOOT LT COMPLETE EXAM: XR FOOT LT COMPLETE CLINICAL HISTORY: Left foot pain,m79.672. TECHNIQUE: 2D digital imaging was performed. Three views. COMPARISON: CR XR FOOT LT COMPLETE from 05/15/2022 FINDINGS: BONES: No acute fracture is present. No bony destructive lesion is seen. Prior resection of distal p ortion of proximal phalanx of 4th toe. Prominent plantar calcaneal spur. Small enthesophyte at tube rosity. JOINTS: No dislocation present. Degenerative changes 1st MTP joint. Mild intertarsal degenerative changes. Spurring again noted between bases of 3rd and 4th metatarsals. SOFT TISSUE: Dorsal swelling over metatarsal region. IMPRESSION: Stable degenerative and postsurgical changes. DATA REPOSITORY: RADIATION DOSE DELIVERED:
== END ==
PROVIDERS: PCP Family Medicine; Visit Provider Podiatrist
DX: M19.072 Primary osteoarthritis, left ankle and foot (principal); Z98.890 Other specified postprocedural states
CPT/HCPCS: 73630

== ENCOUNTER 2023-03-17 02:53 | Outpatient (CLI) | payer MEDICARE, SELFPAY ==
[2023-03-17 13:10] LABS: ALT 23 U/L (16-63); AST 19 U/L (15-37); Albumin 3.2 g/dL (3.4-5.0); Alkaline Phosphatase 78 U/L (46-116); Anion Gap 8.1 mmol/L (3-11); BUN 17 mg/dL (7-18); Bilirubin, Total 0.7 mg/dL (0.2-1.0); CO2 30.9 mmol/L (21.0-32.0); Calcium 9.4 mg/dL (8.5-10.1); Chloride 101 mmol/L (98-107); Estimated GFR 75.14 (mL/min/1.73m2); Glucose 142 mg/dL (74-106); Magnesium 1.9 mg/dL (1.8-2.4); Potassium 3.8 mmol/L (3.5-5.1); Sodium 140 mmol/L (136-145); TSH (W/Ref FT4) 4.43 uIU/mL (0.36-3.74); Total Protein 7.3 g/dL (6.4-8.2)
[2023-03-17 13:45] LABS: FREE T4 1.36 ng/dL (0.76-1.46)
== END 2023-03-17 02:54 | disposition home or self-care (01) ==
LOC: LOS 02:53
PROVIDERS: PCP Family Medicine; Visit Provider Physician Assistant
DX: Z79.899 Other long term (current) drug therapy (principal); Z51.81 Encounter for therapeutic drug level monitoring
CPT/HCPCS: 36415; 80053; 83735; 84439; 84443

== ENCOUNTER → 2023-05-06 08:31 | Outpatient (BNVA) | payer MEDICARE, SELFPAY | PROVIDERS: PCP Family Medicine; Visit Provider Urology | DX: C67.8 Malignant neoplasm of overlapping sites of bladder (principal) | CPT/HCPCS: 52000; 81003 ==

== ENCOUNTER → 2023-05-15 09:34 | Outpatient (BNVA) | payer MEDICARE, SELFPAY | PROVIDERS: PCP Family Medicine; Referring Provider Family Medicine; Visit Provider Podiatrist | DX: M20.42 Other hammer toe(s) (acquired), left foot; M20.41 Other hammer toe(s) (acquired), right foot | CPT/HCPCS: 20600 ==

== ENCOUNTER → 2023-05-29 09:25 | Outpatient (BNVA) | payer MEDICARE, SELFPAY | PROVIDERS: PCP Family Medicine; Referring Provider Family Medicine; Visit Provider Podiatrist | DX: Z09 Encounter for follow-up examination after completed treatment for conditions other than malignant neoplasm (principal); M20.42 Other hammer toe(s) (acquired), left foot; M20.41 Other hammer toe(s) (acquired), right foot | CPT/HCPCS: 99212 ==

== ENCOUNTER → 2023-08-18 09:34 | Outpatient (BNVA) | payer MEDICARE, SELFPAY | PROVIDERS: PCP Family Medicine; Referring Provider Family Medicine; Visit Provider Podiatrist | DX: M20.42 Other hammer toe(s) (acquired), left foot (principal); M20.41 Other hammer toe(s) (acquired), right foot; I87.2 Venous insufficiency (chronic) (peripheral) | CPT/HCPCS: 20600; J0702 ==

== ENCOUNTER 2024-03-16 09:28 | Outpatient (CLI) | payer MEDICARE, SELFPAY ==
[2024-03-16 12:23] LABS: HCT 44.8 % (40.0-50.0); HGB 14.9 g/dL (13.5-17.5); MCH 31.7 pg (27.0-33.0); MCHC 33.3 % (32.0-36.0); MCV 95 fL (80-95); MPV 9.9 fL (8.0-11.0); Platelet Count 264 10^3/uL (130-400); RDW 12.6 % (11.8-14.1); RDW-SD 44.1 fL; WBC 7.74 10^3/uL (4.4-10.8)
[2024-03-16 13:24] LABS: ALT 21 U/L (16-63); AST 17 U/L (15-37); Albumin 3.6 g/dL (3.4-5.0); Alkaline Phosphatase 77 U/L (46-116); Anion Gap 5.8 mmol/L (3-11); BUN 31 mg/dL (7-18); Bilirubin, Total 0.57 mg/dL (0.2-1.0); CO2 31.2 mmol/L (21.0-32.0); CREATININE 1.3 mg/dL (0.70-1.30); Calcium 9.7 mg/dL (8.5-10.1); Chloride 104 mmol/L (98-107); Estimated GFR 54.51 (mL/min/1.73m2); Glucose 98 mg/dL (74-106); Potassium 3.8 mmol/L (3.5-5.1); Sodium 141 mmol/L (136-145); Total Protein 7.5 g/dL (6.4-8.2)
[2024-03-16 14:52] LABS: FREE T4 1.47 ng/dL (0.76-1.46)
[2024-03-16 15:03] LABS: Hemoglobin A1C 5.4 % (<5.7)
== END 2024-03-16 09:29 | disposition home or self-care (01) ==
LOC: LOS 09:29
PROVIDERS: PCP Family Medicine; Visit Provider Family Medicine
DX: E03.9 Hypothyroidism, unspecified (principal); R53.83 Other fatigue; R73.9 Hyperglycemia, unspecified; R10.9 Unspecified abdominal pain
CPT/HCPCS: 36415; 80053; 85027; 83036; 84439; 84443

== ENCOUNTER → 2024-05-04 08:45 | Outpatient (BNVA) | payer MEDICARE, SELFPAY | PROVIDERS: PCP Family Medicine; Referring Provider Family Medicine; Visit Provider Urology | DX: N40.1 Benign prostatic hyperplasia with lower urinary tract symptoms (principal); N13.8 Other obstructive and reflux uropathy; C67.8 Malignant neoplasm of overlapping sites of bladder | CPT/HCPCS: 52000; 81003; 99214 ==

== ENCOUNTER 2024-05-04 10:39 | Outpatient (REF) | payer MEDICARE, SELFPAY ==
--- NOTE | 2024-05-04 09:30 | PAPNONF_PTH ---
PATIENT: Tan Squires JR LOC: [facility] U#:[id number] AGE/SX: 83/M ROOM: RE05/04/[address]: Amaury Deutsch MD : 1940 BED: DIS: 05/04/2024 SPEC #: [id number] RECD: 05/04/24 13:02 STATUS: SALLY RE #: [id number] MYCHAL: 05/04/24 09:[address]: Amaury Deutsch DEPT: [facility] Cytology RECD BY: Rosita Mar ENTERED: 05/04/24 13:03 SP TYPE: IRMA JAQUEZ DR: Tushar Fournier MD Tissues: 1 - BODY FLUID CYTO(SPUTUM/URINE)[facility] Procedures: BODY FLUID CYTO(URINE/SPUTUM) Comments: [id number] (TV = 70 ml, 30 ml CYTOLOYT ADDED) (REFRIGERATED)
== END 2024-05-04 10:40 | disposition home or self-care (01) ==
LOC: LBN 10:39
PROVIDERS: PCP Family Medicine; Visit Provider Urology
DX: C67.8 Malignant neoplasm of overlapping sites of bladder (principal); N13.8 Other obstructive and reflux uropathy; N40.1 Benign prostatic hyperplasia with lower urinary tract symptoms
CPT/HCPCS: 88104

== ENCOUNTER 2025-01-20 14:46 | Outpatient (CLI) | payer MEDICARE, SELFPAY ==
--- NOTE | 2025-01-20 11:45 | DI.RAD_ITS ---
Exam(s) XR KNEE RT 3V AP,LAT,MAMI EXAM: XR KNEE RT 3V AP,LAT,MAMI CLINICAL HISTORY: RIGHT KNEE PAIN. TECHNIQUE: 2D digital imaging was performed of the right knee. Four views obtained. AP, lateral and PA tunnel views were obtained. COMPARISON: CR XR tib/fib RT from 12/29/2017 FINDINGS: BONES: No acute fracture is present. No bony destructive lesion is seen. JOINTS: There is marked narrowing of the medial femoral tibial joint. Chondrocalcinosis is present in the lateral femoral tibial joint. There osteophytes involving all 3 joint compartments. There is a small joint effusion. SOFT TISSUE: Atherosclerotic calcification is present. Dystrophic calcifications are adjacent to the medial femoral condyle. IMPRESSION: Moderate osteoarthritis of the right knee. DATA REPOSITORY: RADIATION DOSE DELIVERED:
--- NOTE | 2025-01-20 11:45 | DI.RAD_ITS ---
Exam(s) XR HIP RT COMPLETE AP PELVIS EXAM: XR HIP RT COMPLETE AP PELVIS CLINICAL HISTORY: RIGHT HIP PAIN. TECHNIQUE: 2D digital imaging was performed of the right hip. Two images were obtained. AP pelvis and lateral right hip views were obtained. COMPARISON: No exams were available for comparison FINDINGS: BONES: No acute fracture is present. No bony destructive lesion is seen. JOINTS: No dislocation present. There is loss of the superior joint space of the right hip. Subchondral sclerosis is present. There are osteophytes seen arising from both the acetabulum and the femoral head. There are more mild degenerative changes seen in the left hip. The symphysis pubis is unremarkable. SOFT TISSUE: Normal. IMPRESSION: Marked degenerative changes seen in the right hip. DATA REPOSITORY: RADIATION DOSE DELIVERED:
== END 2025-01-20 14:47 | disposition home or self-care (01) ==
LOC: DIORS 14:46
PROVIDERS: PCP Family Medicine; Referring Provider Family Medicine; Visit Provider Student in an Organized Health Care Education/Training Program
DX: M16.11 Unilateral primary osteoarthritis, right hip (principal); M17.11 Unilateral primary osteoarthritis, right knee; M25.551 Pain in right hip; M25.561 Pain in right knee
CPT/HCPCS: 99214; 73562; 73502

== ENCOUNTER → 2025-03-10 13:35 | Outpatient (BNVA) | payer MEDICARE, SELFPAY | PROVIDERS: PCP Family Medicine; Referring Provider Family Medicine; Visit Provider Physician Assistant | DX: Z01.818 Encounter for other preprocedural examination (principal); M16.11 Unilateral primary osteoarthritis, right hip | CPT/HCPCS: 99024 ==

== ENCOUNTER 2025-03-10 15:52 | Outpatient (REF) | payer MEDICARE, SELFPAY ==
[2025-03-10 16:28] LABS: HCT 48.5 % (40.0-50.0); HGB 16.2 g/dL (13.5-17.5); MCH 31.5 pg (27.0-33.0); MCHC 33.4 % (32.0-36.0); MCV 94 fL (80-95); MPV 9.9 fL (8.0-11.0); Platelet Count 293 10^3/uL (130-400); RBC 5.15 10^6/uL (4.36-5.78); RDW 12.5 % (11.8-14.1); RDW-SD 43.5 fL; WBC 9.38 10^3/uL (4.4-10.8)
[2025-03-10 16:42] LABS: Anion Gap 10 mmol/L (3-11); BUN 22 mg/dL (9-23); CO2 27.0 mmol/L (20.0-31.0); Calcium 9.6 mg/dL (8.3-10.6); Chloride 105 mmol/L (98-107); Glucose 99 mg/dL (74-106); Potassium 4.0 mmol/L (3.5-5.1); Sodium 142 mmol/L (136-145)
== END 2025-03-10 15:53 | disposition home or self-care (01) ==
LOC: LBN 15:52
PROVIDERS: PCP Family Medicine; Visit Provider Student in an Organized Health Care Education/Training Program
DX: Z01.818 Encounter for other preprocedural examination (principal); M16.11 Unilateral primary osteoarthritis, right hip
CPT/HCPCS: 80048; 85027

== ENCOUNTER 2025-03-11 13:56 | Emergency (ER) | payer MEDICARE, SELFPAY ==
[2025-03-11] VITALS (27 sets, daily range): BP systolic 99–127; BP diastolic 49–104; PULSE 48–111; RESP 11–24; TEMP 36.3; O2SAT 92–98
--- NOTE | 2025-03-11 13:45 | RT.EKG_ITS ---
APPROVED REPORT Exam: Resting ECG Reason for Exam: dizziness Patient Location: E HR:84 bpm ECG Measurements Heart Rate 84 AXIS VT [id number] P [id number] QRSd 138 QRS -76 QT 393 T 85 QTc 465 Conclusion Atrial fibrillation...? atrial activity Left bundle branch block...QRSd>120, broad/notched R No STEMI
--- NOTE | 2025-03-11 14:00 | DI.RAD_ITS ---
Exam(s) XR PORTABLE CHEST AP EXAM: XR PORTABLE CHEST AP CLINICAL HISTORY: Dizziness TECHNIQUE: 2D digital imaging was performed. COMPARISON: CT CT CHEST PE CTA from 07/24/2022 FINDINGS: Exam is limited by abdominal soft tissues overlying the lung bases. LUNGS: Grossly clear where visualized. The left lung base is obscured. No evidence of pulmonary edema. No pleural abnormality seen. HEART: Enlarged. AORTA: Normal diameter. BONES: Unremarkable for age. Degenerative changes in the spine and shoulders. Soft tissues: Unremarkable. IMPRESSION: Limited exam. No acute findings. DATA REPOSITORY: RADIATION DOSE DELIVERED:
--- NOTE | 2025-03-11 14:07 | ED.GENADUL_ITS ---
Discharge Plan Disposition Patient Disposition: Home Discharge Details Clinical Impression: A-fib, Lightheadedness Primary Care Provider: Tushar Fournier ED Provider: Roney Last Home Meds and New Rx's Prescriptions: No Action timolol maleate 0.5 % drops 1 drp ophthalmic (eye) DAILY Rx Instructions: 1 drop each eye every a.m furosemide [Lasix] 40 mg tablet 40 mg PO DAILY PRN (Reason: swelling) Qty: 90 3RF omega 4-ltd-zjt-fish oil [Fish Oil] 1,200 (144-216) mg capsule PO DAILY AM Systane Complete PF 0.6 % drops ophthalmic (eye) BID Rx Instructions: 1 drop each eye BID omega-3 fatty acids-fish oil 1 EACH capsule 1 ea PO DAILY Qty: 270 Patient Comments: daily 01/12/13 amlodipine 5 mg tablet 10 mg PO HS Qty: 90 metoprolol succinate 25 mg tablet extended release 24 hr 50 mg PO DAILY Qty: 90 lisinopril 20 mg tablet See Rx Instructions .ROUTE .COMPLEX Qty: 90 3RF Dose Instruction: TAKE 1 TABLET AT BEDTIME Rx Instructions: TAKE 1 TABLET AT BEDTIME Xarelto 20 mg tablet 20 mg PO DAILY Qty: 90 3RF pravastatin 40 mg tablet 40 mg PO DAILY Qty: 90 3RF Jardiance 10 mg tablet 10 mg PO DAILY Qty: 90 3RF Discharge Instructions Instructions: Atrial Fibrillation (DC), Dizziness, Adult ED Additional Instructions: As discussed, your evaluation today was reassuring that your symptoms were not caused by heart attack, and are not likely being caused by a stroke. I suspect most likely you being in atrial fibrillation with the cause of the symptoms. I recommend following up with your electro oleomargarine maker for further discussion about management of your chronic intermittent need for Please follow-up with your primary care provider regarding your visit to the emergency department today. Be sure to discuss results of all test performed here today to include radiology, and laboratory testing as well as results for any pending cultures. Should your symptoms worsen, or if you develop new concerning symptoms, please return immediately emergency department for further evaluation. Stand Alone Forms: Portal Information Discharge Data Discharge Date/Time-TO BE ENTERED AT DEPARTURE: 03/11/25 17:04 HPI General Date/Time Provider Initiated Documentation: 03/11/25 14:07 . HPI Narrative: MDM/Narrative: 84-year-old male presents for evaluation of an episode of lightheadedness which is resolved prior to arrival to the emergency department. Initial vitals notable for mild hypotension systolic 103 diastolic 53, primary survey intact, secondary survey is unremarkable. Given patient's intermittent A-fib, with a noted inability to know when he is in A-fib I am suspicious that if his episode of lightheadedness with the start of his current episode of A-fib. However we will consider other possible causes such as CVA, ACS, electrolyte derangement or infection. Will obtain screening imaging, EKG and lab work. Currently patient has no complaints of lightheadedness, pain, nausea or any other complaints. ED course: EKG shows no ischemic changes, and old left bundle branch block, as well as persistent A-fib. Lab results are unremarkable. CTA of the head and neck shows no acute findings. On reassessment, patient is ambulatory with no complaints, plan of care discussed with the patient and his , given he is already anticoagulated, and has remained rate controlled here in the emergency department there is no emergent need for cardioversion. I will refer to his electrical oleomargarine maker, who they will follow-up with this coming Friday, instructed return to emergency department if he has any new or worsening symptoms. Disposition: Home HPI: 84-year-old male with a past medical history of intermittent A-fib, anticoagulated on apixaban, hypertension, presents for evaluation of an episode of lightheadedness. Patient states that he was in a workshop, with a friend replacing the valve on a leaky tire, when he slightly bent over the hip to warp picker the tire suddenly became lightheaded and felt nauseous as if he was going to pass out. He said symptoms lasted for approximately 10 to 20 minutes before spontaneously resolving. However he felt unwell enough that his friend called for EMS. Upon arrival emergency department, patient has no complaints at all. He denies any associated headaches, shortness of breath, chest pain, loss of consciousness, back pain, fever, chills or any other concerning symptoms. He notes that he is followed by an pond tender, as he has been having intermittent A-fib for many years, was previously on amiodarone but medication was stopped due to problems with his thyroid. Currently takes metoprolol for rate control, and is on rivaroxaban for anticoagulation. ROS: Negative besides as mentioned above Exam: Gen: A&O NAD HEENT: NCAT, EOMI, not icteric. External ears normal. No rhinorrhea. Moist mucous membranes. Neck: Supple, full range of motion, no observable masses, No meningeal sign. Lungs: No Respiratory distress. CV: Irregularly irregular, no edema. Abdomen: Soft, nondistended, No rebound tenderness. MSK: No joint swelling, no redness. Skin: No rashes, petechiae, lesions. Normal color per patient. Neuro: Normal Gait, Grossly intact. Psych: Appropriate for situation. Rhythm: A-fib Rate: 84 [place]: Normal axis Intervals: Normal intervals Other findings: No acute ST segment or T wave changes to suggest acute ischemia. Left bundle branch block which is old as compared to prior EKG Labs: Laboratory Tests Range/Units 03/11/25 03/11/25 14:12 15:25 WBC (4.4-10.8) 10^3/uL 10.46 RBC (4.36-5.78) 10^6/uL 5.15 Hgb (13.5-17.5) g/dL 15.9 Hct (40.0-50.0) % 48.1 MCV (80-95) fL 93 MCH (27.0-33.0) pg 30.9 MCHC (32.0-36.0) % 33.1 RDW (11.8-14.1) % 12.4 Plt Count (130-400) 10^3/uL 265 MPV (8.0-11.0) fL 9.2 Immature Gran % % 0.6 Neutrophils % % 73.5 Lymphocytes % % 17.8 Monocytes % % 6.7 Eosinophils % % 0.9 Basophils % % 0.5 Nucleated RBC % (0.0-0.3) % 0.0 Absolute Neutrophils (1.2-6.7) 10^3/uL 7.70 H Absolute Lymphocytes (1.2-3.4) 10^3/uL 1.86 Absolute Monocytes (0.1-0.8) 10^3/uL 0.70 Absolute Eosinophils (0.0-0.7) 10^3/uL 0.09 Absolute Basophils (0.0-0.2) 10^3/uL 0.05 VBG Lactate (<or=2.0) mmol/L 2.0 Sodium (136-145) mmol/L 143 Potassium (3.5-5.1) mmol/L 4.1 Chloride (98-107) mmol/L 106 Carbon Dioxide (20.0-31.0) mmol/L 25.7 Anion Gap (3-11) mmol/L 11.3 H BUN (9-23) mg/dL 26 H Creatinine (0.73-1.18) mg/dL 1.36 H Est GFR (CKD-EPI 2020) (mL/min/1.73m2) 49.84 Glucose (74-106) mg/dL 134 H Calcium (8.3-10.6) mg/dL 9.0 Magnesium (1.6-2.6) mg/dL 1.9 Total Bilirubin (0.2-1.2) mg/dL 0.8 AST (<34) U/L 19 ALT (10-49) U/L 12 Alkaline Phosphatase (46-116) U/L 69 Troponin I (<54) ng/L 10 9 NT-Pro-B Natriuret Pep (<300) pg/mL 3070 H Total Protein (5.7-8.2) g/dL 6.9 Albumin (3.2-5.0) g/dL 3.9 Radiology: Accession No. : [id number] Creator : ALICE ROSE Dictator : ALICE ROSE Chiropractic Practice Manager : Electronics Research Engineer : ALICE ROSE Approver2 : Report Date : 03/11/2025 15:14:57 Exam(s) XR PORTABLE CHEST AP EXAM: XR PORTABLE CHEST AP CLINICAL HISTORY: Dizziness TECHNIQUE: 2D digital imaging was performed. COMPARISON: CT CT CHEST PE CTA from 07/24/2022 FINDINGS: Exam is limited by abdominal soft tissues overlying the lung bases. LUNGS: Grossly clear where visualized. The left lung base is obscured. No evidence of pulmonary edema. No pleural abnormality seen. HEART: Enlarged. AORTA: Normal diameter. BONES: Unremarkable for age. Degenerative changes in the spine and shoulders. Soft tissues: Unremarkable. IMPRESSION: Limited exam. No acute findings. DATA REPOSITORY: RADIATION DOSE DELIVERED: Accession No. : [id number] Creator : Tan Salamanca Dictator : Tan Salamanca Chiropractic Practice Manager : Electronics Research Engineer : Tan Salamanca Approver2 : Report Date : 03/11/2025 16:42:10 Exam(s) CT BRAIN NECK CTA EXAM: CT BRAIN NECK CTA CLINICAL HISTORY: lightheadedness. TECHNIQUE: Imaging Protocol: Axial CT angiography was performed with multi- slice acquisition and multi-planar and/or 3D reconstructions. CONTRAST MATERIAL: Intravenous: Omnipaque 350 Contrast volume:structured data in ml COMPARISON: No exams were available for comparison FINDINGS: CTA Neck W: Aortic arch anatomy: The aortic arch anatomy is conventional and there is no significant stenosis at the origin of the great vessels off of the aortic arch. No intimal flap evident. Anterior circulation: Both common carotid arteries ascend with normal luminal diameters. At the level the carotid bulbs and proximal internal carotid arteries there is some partially calcified plaque evident bilaterally. Estimated 10 percent stenosis on the left side and estimated 20 percent stenosis on the right side. The internal carotid arteries are nicely patent in the mid-upper neck as well as in the skull base-carotid canals. Posterior circulation: Both vertebral arteries originate in conventional fashion off of the subclavian arteries and there is no obvious stenosis at the origin of the vertebral arteries. Right vertebral artery exhibits normal diameter in the foramen transversarium. The left vertebral artery exhibits mild focal narrowing within the foramen transversarium at the C4-5 level related to some degenerative arthropathy at this level. There does not appear to be a critical stenosis and there is no intraluminal thrombus nor dissection at this level. Both vertebral arteries contribute to the formation of the basilar artery at the skull base. CTA Brain W: Anterior circulation: Both internal carotid arteries are patent in the skull base-carotid canals as well as within the cavernous sinuses. The supraclinoid aspects of the ICAs are patent. Both A1 segments are patent as are the anterior cerebral arteries and there is no evidence of aneurysm at the level of the anterior communicating artery. Both middle cerebral arteries are patent with no evidence of significant stenosis nor intraluminal thrombus. There also no aneurysms of these vessels. Posterior circulation: Basilar artery ascends without significant stenosis. Distally it gives off superior cerebellar arteries. Above this level the basilar artery terminates as patent bilateral posterior cerebral arteries. There is no evidence of aneurysm at the tip of the basilar artery nor elsewhere in the [id number]. CT BRAIN: There is no evidence of intracranial hemorrhage, mass effect, or shift of midline structures. There are no extra-axial fluid collections. Ventricles are not enlarged or shifted. There are no ring enhancing lesions in the brain and no abnormal meningeal enhancement. There is symmetrical bilateral periventricular hypodensity consistent with chronic small vessel disease. No obvious acute infarct. IMPRESSION: 1. Mild partially calcified plaque at the carotid bulbs/proximal ICAs both sides the neck but no hemodynamically significant stenosis. Stenosis is less than 20 percent bilaterally at these levels. Also no dissection. 2. Patent vertebral arteries. Mild narrowing of the left vertebral artery noted at C4 level due to some degenerative change in the foramen transverse area. No evidence of intraluminal thrombus nor dissection. 3. Patent intracranial arteries. No significant stenosis nor thrombosis and no dissection. No aneurysms. No vascular malformations. 4. Symmetrical periventricular hypodensity consistent with chronic small vessel disease. No obvious acute infarct on CT scan and no ring enhancing lesions. Called by myself to ER physician 03/11/2023 at 4:40 p.m. RADIATION DOSE DELIVERED: 2,216.64mGy.cm Total DLP DATA REPOSITORY: All CT scans at this facility are submitted to the National Radiology Data Registry (NRDR) Dose Index Registry (DIR) with the [employer] (ACR). RADIATION OPTIMIZATION: All CT scans at this facility use at least one of these dose optimization techniques: automated exposure control; mA and/or kV adjustment per patient size (includes targeted exams where dose is matched to clinical indication); or iterative reconstruction. Related Data Home Medications ?Medication ?Instructions ?Recorded ?Confirmed omega-3 fatty acids-fish oil 300 1 ea PO DAILY ##270 0 09/02/12 03/10/25 mg-1,000 mg capsule amlodipine 5 mg tablet 10 mg PO HS #90 tab-caps 02/1703/10/25 metoprolol succinate 25 mg 50 mg PO DAILY #90 tab-caps 06/09/19 03/10/25 tablet,extended release 24 hr timolol maleate 0.5 % eye drops 1 drp ophthalmic (eye) DAILY 09/04/21 03/10/25 furosemide 40 mg tablet (Lasix) 40 mg PO DAILY PRN swe lling #90 04/09/23 5 tabs omega 8-dme-cje-fish oil 1,200 mg cap PO DAILY AM 03/3103/10/25 (144 mg-216 mg) capsule (Fish Oil) propylene glycol (PF) 0.6 % eye drp ophthalmic (eye) B ID 04/09/23 03/10/25 drops (Systane Complete PF) lisinopril 20 mg tablet See Rx Instructions .Route 0 08/09/24 03/10/25 .COMPLEX #90 tabs pravastatin 40 mg tablet 40 mg PO DAILY #90 tabs 07/2903/10/25 rivaroxaban 20 mg tablet (Xarelto) 20 mg PO DAILY #90 tab-caps 08/09/24 03/10/25 empagliflozin 10 mg tablet 10 mg PO DAILY #90 tabs 03/10/25 (Jardiance) Previous Rx's ?Medication ?Instructions ?Recorded furosemide 40 mg tablet (Lasix) 40 mg PO DAILY PRN swe lling #90 04/09/23 tabs lisinopril 20 mg tablet See Rx Instructions .Route 0 08/09/24 .COMPLEX #90 tabs pravastatin 40 mg tablet 40 mg PO DAILY #90 tabs 07/29 05/25 rivaroxaban 20 mg tablet (Xarelto) 20 mg PO DAILY #90 tab-caps 08/09/24 empagliflozin 10 mg tablet 10 mg PO DAILY #90 tabs (Jardiance) Allergies Allergy/AdvReac Type Severity Reaction Status Date / Time No Known Allergies Allergy Verified 03/10/25 13:44 General DONNELL: 3 PFSH All Active Problems (Updated 03/11/25 @ 16:49 by Roney Last MD) Lightheadedness (Acute) A-fib (Chronic) Emphysema of lung (Chronic 2022) [place] [facility] [place] Localized osteoarthritis of right knee (Acute) Osteoarthritis of right hip (Acute) Venous (peripheral) insufficiency (Acute) Hammertoe of right foot (Acute) Atrial fibrillation (Chronic) CHF (congestive heart failure) (Chronic) Shortness of breath (Acute) Extensor tendinitis of foot (Acute) Hammertoe of left foot (Acute) Paroxysmal atrial fibrillation (Chronic 09/14/15) Overweight (Chronic) Hyperlipidemia (Chronic) Family history of malignant neoplasm of prostate (Chronic) Essential hypertension (Chronic) BPH w urinary obs/LUTS (Acute) Bladder cancer (Acute 2019) 2019-status post transurethral resection, recurrence also treated with resection, status post chemotherapy infusion followed by urology-[facility] Hyperglycemia (Acute) 08/2021, hgba1c 5.8% Leg edema (Acute) c/w venous stasis Medical History (Updated 03/11/25 @ 16:49 by Roney Last MD) Ureteral stone Bladder stone History of tobacco use Kidney stone Bucket handle tear of lateral meniscus of knee (02/27/07) left knee; repaired Kidney stone Surgical History Hx of toe surgery arthritic ring toe left History of bunionectomy Hx of appendectomy History of appendectomy History of arthroscopy of knee Dr. Sweet; left knee; repair medial meniscus History of open reduction and internal fixation (ORIF) procedure 1969 Right leg Status post bunionectomy Bilateral Status post carpal tunnel release Open Carpal Tunnel release LEFT Fracture, Open Treatment (~1969) RIGHT LEG Family History Mother , 97 Essential hypertension Hyperlipidemia Stroke Father , 93 Cancer Sister Essential hypertension Brother No problems noted. Maternal Grandfather , 67 No problems noted. Paternal Grandfather , 80+ Myocardial infarction Stroke Maternal Grandmother , 50 No problems noted. Paternal Grandmother , 50? No problems noted. Son No problems noted. Son No problems noted. Other History of tobacco use Social History Smoking/Tobacco Use Status: Former Tobacco Use tobacco type: cigarettes Quit Date: 08/29/04 Second Hand Exposure: Yes Smoking risk assessment performed?: Yes Alcohol Intake: current Alcohol Intake frequency: a few times a month Alcohol type: wine Drug use: Never Substance use type: does not use Caregiver/Support person: No Household members: spouse Housing: house Communication Needs: Corrective Lenses Do you need help understanding health information?: Rarely Pets and animals: No Sexually active: No Do you think of yourself as: straight/heterosexual Current gender identity: male What is your relationship status?: How often do you talk on the phone with friends or family?: three or more times per week How often do you get together with friends or relatives?: twice per week How often do you attend pentecostalism or hindu services?: decline to answer Do you belong to any clubs or organized social groups?: yes Panel score (0-1 are the most socially isolated patients): 3 What type of physical activity do you participate in: none Frequency: does not exercise Debora/Lutheran: Presbyterian Special debora needs: No Seatbelt use: never Helmet use: No Drive intox or ride w/intox driver education road instructor: No Do you feel safe at home: Yes Do you feel safe in your relationship?: Yes
[2025-03-11 14:20] LABS: Abs Immature Grans 0.06 10^3/uL (0.0-0.06); HCT 48.1 % (40.0-50.0); HGB 15.9 g/dL (13.5-17.5); Immature Grans % 0.6 %; MCH 30.9 pg (27.0-33.0); MCHC 33.1 % (32.0-36.0); MCV 93 fL (80-95); MPV 9.2 fL (8.0-11.0); Platelet Count 265 10^3/uL (130-400); RBC 5.15 10^6/uL (4.36-5.78); RDW 12.4 % (11.8-14.1); RDW-SD 43.1 fL; WBC 10.46 10^3/uL (4.4-10.8)
[2025-03-11 14:53] LABS: Magnesium 1.9 mg/dL (1.6-2.6)
[2025-03-11 14:54] LABS: Troponin I 10 ng/L (<54)
[2025-03-11 14:55] LABS: ALT 12 U/L (10-49); AST 19 U/L (<34); Albumin 3.9 g/dL (3.2-5.0); Alkaline Phosphatase 69 U/L (46-116); Anion Gap 11.3 mmol/L (3-11); BUN 26 mg/dL (9-23); Bilirubin, Total 0.8 mg/dL (0.2-1.2); CO2 25.7 mmol/L (20.0-31.0); Calcium 9.0 mg/dL (8.3-10.6); Chloride 106 mmol/L (98-107); Glucose 134 mg/dL (74-106); Potassium 4.1 mmol/L (3.5-5.1); Sodium 143 mmol/L (136-145); Total Protein 6.9 g/dL (5.7-8.2)
--- NOTE | 2025-03-11 15:00 | DI.CT_ITS ---
Exam(s) CT BRAIN NECK CTA EXAM: CT BRAIN NECK CTA CLINICAL HISTORY: lightheadedness. TECHNIQUE: Imaging Protocol: Axial CT angiography was performed with multi- slice acquisition and multi-planar and/or 3D reconstructions. CONTRAST MATERIAL: Intravenous: Omnipaque 350 Contrast volume:structured data in ml COMPARISON: No exams were available for comparison FINDINGS: CTA Neck W: Aortic arch anatomy: The aortic arch anatomy is conventional and there is no significant stenosis at the origin of the great vessels off of the aortic arch. No intimal flap evident. Anterior circulation: Both common carotid arteries ascend with normal luminal diameters. At the level the carotid bulbs and proximal internal carotid arteries there is some partially calcified plaque evident bilaterally. Estimated 10 percent stenosis on the left side and estimated 20 percent stenosis on the right side. The internal carotid arteries are nicely patent in the mid-upper neck as well as in the skull base-carotid canals. Posterior circulation: Both vertebral arteries originate in conventional fashion off of the subclavian arteries and there is no obvious stenosis at the origin of the vertebral arteries. Right vertebral artery exhibits normal diameter in the foramen transversarium. The left vertebral artery exhibits mild focal narrowing within the foramen transversarium at the C4-5 level related to some degenerative arthropathy at this level. There does not appear to be a critical stenosis and there is no intraluminal thrombus nor dissection at this level. Both vertebral arteries contribute to the formation of the basilar artery at the skull base. CTA Brain W: Anterior circulation: Both internal carotid arteries are patent in the skull base-carotid canals as well as within the cavernous sinuses. The supraclinoid aspects of the ICAs are patent. Both A1 segments are patent as are the anterior cerebral arteries and there is no evidence of aneurysm at the level of the anterior communicating artery. Both middle cerebral arteries are patent with no evidence of significant stenosis nor intraluminal thrombus. There also no aneurysms of these vessels. Posterior circulation: Basilar artery ascends without significant stenosis. Distally it gives off superior cerebellar arteries. Above this level the basilar artery terminates as patent bilateral posterior cerebral arteries. There is no evidence of aneurysm at the tip of the basilar artery nor elsewhere in the [id number]. CT BRAIN: There is no evidence of intracranial hemorrhage, mass effect, or shift of midline structures. There are no extra-axial fluid collections. Ventricles are not enlarged or shifted. There are no ring enhancing lesions in the brain and no abnormal meningeal enhancement. There is symmetrical bilateral periventricular hypodensity consistent with chronic small vessel disease. No obvious acute infarct. IMPRESSION: 1. Mild partially calcified plaque at the carotid bulbs/proximal ICAs both sides the neck but no hemodynamically significant stenosis. Stenosis is less than 20 percent bilaterally at these levels. Also no dissection. 2. Patent vertebral arteries. Mild narrowing of the left vertebral artery noted at C4 level due to some degenerative change in the foramen transverse area. No evidence of intraluminal thrombus nor dissection. 3. Patent intracranial arteries. No significant stenosis nor thrombosis and no dissection. No aneurysms. No vascular malformations. 4. Symmetrical periventricular hypodensity consistent with chronic small vessel disease. No obvious acute infarct on CT scan and no ring enhancing lesions. Called by myself to ER physician 03/11/2023 at 4:40 p.m. RADIATION DOSE DELIVERED: 2,216.64mGy.cm Total DLP DATA REPOSITORY: All CT scans at this facility are submitted to the National Radiology Data Registry (NRDR) Dose Index Registry (DIR) with the [employer] (ACR). RADIATION OPTIMIZATION: All CT scans at this facility use at least one of these dose optimization techniques: automated exposure control; mA and/or kV adjustment per patient size (includes targeted exams where dose is matched to clinical indication); or iterative reconstruction.
[2025-03-11] MEDS: Normal Saline - Diluent 50 ML VIAL IJ (15:45)
[2025-03-11] MEDS: Omnipaque 350 MG/ML 100 ML BTL IJ (15:45)
[2025-03-11] MEDS: Normal Saline Flush 10 ML SYR IVP (15:46)
[2025-03-11 15:47] LABS: Troponin I 9 ng/L (<54)
== END 2025-03-11 17:04 | disposition home or self-care (01) ==
PROVIDERS: Emergency Provider General Practice; PCP Family Medicine
DX: R42 Dizziness and giddiness (principal); I48.91 Unspecified atrial fibrillation; R11.0 Nausea; Z79.01 Long term (current) use of anticoagulants
CPT/HCPCS: 99284; 99285; 36415; 70496; 70498; 80053; 93005; 71045; 83605; 83735; 83880; 84484; 85025; 93010; J3490

== ENCOUNTER 2025-03-22 05:52 | Day surgery (SDC) | payer MEDICARE, SELFPAY ==
[2025-03-22] VITALS (21 sets, daily range): BP systolic 74–123; BP diastolic 41–62; PULSE 43–58; RESP 9–23; TEMP 36.1–36.6; O2SAT 89–97; BMI 32.8
[2025-03-22] MEDS: Lactated Ringers 1,000 ML 80 ML IV (06:40)
[2025-03-22] MEDS: Celecoxib 200 MG CAP 400 MG PO (06:43)
[2025-03-22] MEDS: Acetaminophen 500 MG TAB 1000 MG PO (06:43)
[2025-03-22 06:53] LABS: Anion Gap 8.6 mmol/L (3-11); BUN 22 mg/dL (9-23); CO2 29.4 mmol/L (20.0-31.0); Calcium 9.3 mg/dL (8.3-10.6); Chloride 106 mmol/L (98-107); Glucose 118 mg/dL (74-106); Potassium 4.1 mmol/L (3.5-5.1); Sodium 144 mmol/L (136-145)
--- NOTE | 2025-03-22 07:06 | W.ANESPRE ---
General Info Date of Service Date Performed: 03/22/25 Height: 5 ft 7 in Weight: 95.2 kg Body Mass Index (BMI): 32.8 Surgical Procedure: Operation Date: 03/22/25 07:50 Proposed Procedure Side Surgeon p Hip Total Hip Anterior, Actis Right Marcel Torres MD Meds Allergies and Home Medications Allergies Allergy/AdvReac Type Severity Reaction Status Date / Time No Known Allergies Allergy Verified 03/22/25 06:16 Home Medication ?Medication ?Instructions ?Recorded omega-3 fatty acids-fish oil 300 1 ea PO DAILY ##270 09/02/12 mg-1,000 mg capsule amlodipine 5 mg tablet 10 mg PO HS #90 tab-caps 06/09/19 metoprolol succinate 25 mg 50 mg PO DAILY #90 tab-caps 06/09/19 tablet,extended release 24 hr timolol maleate 0.5 % eye drops 1 drp ophthalmic (eye) DAILY 09/04/21 furosemide 40 mg tablet (Lasix) 40 mg PO DAILY PRN swelling #90 04/09/23 tabs omega 6-ubt-qcp-fish oil 1,200 mg cap PO DAILY AM 04/09/23 (144 mg-216 mg) capsule (Fish Oil) propylene glycol (PF) 0.6 % eye drp ophthalmic (eye) BID 04/09/23 drops (Systane Complete PF) lisinopril 20 mg tablet See Rx Instructions .Route 08/09/24 .COMPLEX #90 tabs pravastatin 40 mg tablet 40 mg PO DAILY #90 tabs 08/09/24 rivaroxaban 20 mg tablet (Xarelto) 20 mg PO DAILY #90 tab-caps 08/09/24 empagliflozin 10 mg tablet 10 mg PO DAILY #90 tabs 10/12/24 (Jardiance) Current Visit Medications: Current Medications Generic Name Dose Route Start Last Admin Trade Name Freq PRN Reason Stop Dose Admin Acetaminophen 1,000 mg 03/22/25 06:00 03/22/25 06:43 Acetaminophen 500 Mg Tab PO 03/22/25 23:59 1,000 mg PREOP LEI Administration Celecoxib 400 mg 03/22/25 06:00 03/22/25 06:43 Celecoxib 200 Mg Cap PO 03/22/25 23:59 400 mg PREOP LEI Administration Ringer's Solution 1,000 mls @ 80 mls/hr 03/22/25 06:00 IV 03/22/25 23:59 INFUSION LEI Cefazolin Sodium/Dextrose 2 gm in 50 mls @ 100 mls/hr 03/22/25 06:00 Ancef Duplex IVPB 03/22/25 23:59 PREOP LEI Tranexamic Acid/Sodium Chloride 1,000 mg in 100 mls @ 600 mls/hr 03/22/25 06:00 IVPB 03/22/25 23:59 PREOP LEI Sodium Chloride 0 ml 03/22/25 06:00 Normal Saline Flush 10 Ml Syr IV 03/22/25 23:59 PRN PRN Sodium Chloride 0 ml 03/22/25 06:00 Normal Saline 10 Ml Vial IJ 03/22/25 23:59 DIRECTED PRN Sterile Water 0 ml 03/22/25 06:00 Water,Injection,Sterile 10 Ml Vial IJ 03/22/25 23:59 DIRECTED PRN PFSH Active Problems Active Problems: Problem Status Onset Code Lightheadedness Acute R42 A-fib Chronic I48.91 Emphysema of lung Chronic 2022 J43.9 Localized osteoarthritis of right knee Acute M17.11 Osteoarthritis of right hip Acute M16.11 Venous (peripheral) insufficiency Acute I87.2 Hammertoe of right foot Acute M20.41 Atrial fibrillation Chronic I48.91 CHF (congestive heart failure) Chronic I50.9 Shortness of breath Acute R06.02 Extensor tendinitis of foot Acute M77.8 Hammertoe of left foot Acute M20.42 Paroxysmal atrial fibrillation Chronic 09/14/15 I48.0 Overweight Chronic E66.3 Hyperlipidemia Chronic E78.5 History of tobacco use Resolved Z87.891 Family history of malignant neoplasm of prostate Chronic Z80.42 Essential hypertension Chronic I10 BPH w urinary obs/LUTS Acute N40.1, N13.8 Bladder cancer Acute 2019 C67.9 Hyperglycemia Acute R73.9 Leg edema Acute R60.0 Medical History Medical History Ureteral stone Bladder stone History of tobacco use Kidney stone Bucket handle tear of lateral meniscus of knee (02/27/07) left knee; repaired Kidney stone Surgical History Surgical History Hx of toe surgery arthritic ring toe left History of bunionectomy Hx of appendectomy History of appendectomy History of arthroscopy of knee Dr. Sweet; left knee; repair medial meniscus History of open reduction and internal fixation (ORIF) procedure 1969 Right leg Status post bunionectomy Bilateral Status post carpal tunnel release Open Carpal Tunnel release LEFT Fracture, Open Treatment (~1969) RIGHT LEG Tobacco Smoking/Tobacco Use Status: Former Tobacco Use Passive smoking exposure: Yes Second hand exposure: Yes Alcohol Alcohol Intake: current Alcohol intake frequency: a few times a month Alcohol type: wine Substance Use Substance use: Never Substance use type: does not use Details: alcohol: t-30 Vital Signs and Lab Results Vital Signs Most Recent Vital Signs in EMR: Most Recent Vital Signs Temp Pulse Resp BP Pulse Ox 36.5 C 58 L 18 105/61 96 03/22/25 06:20 03/22/25 06:20 03/22/25 06:20 03/22/25 06:20 03/22/25 06:20 Lab Results 03/22/25 06:22 Complete Blood Count: WBC, (4.4-10.8) 10.46 10^3/uL 03/11/25, 14:12 RBC, (4.36-5.78) 5.15 10^6/uL 03/11/25, 14:12 Hgb, (13.5-17.5) 15.9 g/dL 03/11/25, 14:12 Hct, (40.0-50.0) 48.1 % 03/11/25, 14:12 Plt Count, (130-400) 265 10^3/uL 03/11/25, 14:12 VBG Lactate, (<or=2.0) 2.0 mmol/L 03/11/25, 14:12 Complete Metabolic Panel: Sodium, (136-145) 144 mmol/L Today, 06:22 Potassium, (3.5-5.1) 4.1 mmol/L Today, 06:22 Chloride, (98-107) 106 mmol/L Today, 06:22 Carbon Dioxide, (20.0-31.0) 29.4 mmol/L Today, 06:22 BUN, (9-23) 22 mg/dL Today, 06:22 Creatinine, (0.73-1.18) 1.01 mg/dL Today, 06:22 Est GFR (CKD-EPI 2021), (mL/min/1.73m2) 70.25 Today, 06:22 Magnesium, (1.6-2.6) 1.9 mg/dL 03/11/25, 14:12 Calcium, (8.3-10.6) 9.3 mg/dL Today, 06:22 Albumin, (3.2-5.0) 3.9 g/dL 03/11/25, 14:12 Glucose, (74-106) 118 mg/dL H Today, 06:22 Liver Function Panel: ALT, (10-49) 12 U/L 03/11/25, 14:12 AST, (<34) 19 U/L 03/11/25, 14:12 Cardiac Panel: Troponin I, (<54) 9 ng/L 03/11/25 NT-Pro-B Natriuret Pep, (<300) 480 pg/mL H Today Imaging and Studies Imaging and Studies Study information below may be from another EMR and interpreted by another provider. Please see original notes in EMR for more complete details. EKG Summary: 11/2018: sinus jenna with PAC, LAD. Stress Test Summary: 2016: abnormal study after pharm stress. abnormal contraction consistent with cardiomyopathy, suggests small myocardial ischemia in the territory of the LAD. LVEF 37%, Echocardiogram Summary: 01/11/14: EF 59%, Grade II diastolic, mild TR Anesthesia Assessment and Plan Anesthesia History Personal History: No History of Anesthesia Complications Family History: No Family History of Anesthesia Complications Exercise Tolerance Exercise Tolerance: Metabolic Equivalents>4 Pertinent Negatives Pertinent Negatives: No Symptoms of GERD Cardiac & Pulmonary Exam Cardiac Exam: Normal S1/S2 Heart Sounds Pulmonary Exam: Clear Bilateral Breath Sounds Implantable Cardiac Device Does patient have a Pacemaker or an ICD?: No Airway Exam Known Difficult Airway: No Mallampati Class: 1 Mouth Opening: Normal (> 3cm) Thyromental Distance: Greater than 3 cm Neck Range of Motion: Full ROM Neck Circumference: Normal Teeth Condition: Normal Dentition ASA Classification ASA Score: ASA 3 Emergency Case?: No NPO Status NPO Status: NPO Clears >2 hours, Solids >8 hours Anesthesia Plan Resuscitation Status: Full Code Anesthesia Technique: General Anesthesia Airway Planned: Endotracheal Tube Monitors Used: Standard Monitors and SedLine Preoperative Comments:: Repeat labs reassuring this am, reviewed [facility] [place] and reviewed recent ECHO. Plan for GA/ETT. Patient feeling well this morning.
--- NOTE | 2025-03-22 07:15 | DI.RAD_ITS ---
Exam(s) XR HIP RT IN OR EXAM: XR HIP RT IN OR CLINICAL HISTORY: right hip osteoarthritis. TECHNIQUE: 2D digital imaging was performed. COMPARISON: No exams were available for comparison FINDINGS: Fluoroscopy was provided during right hip arthroplasty. See procedure report for details. IMPRESSION: Radiation exposure index/cumulative dose: rica Wilkins=3.1572mGy DATA REPOSITORY: RADIATION DOSE DELIVERED:
--- NOTE | 2025-03-22 07:19 | W.PM.DSUDISC ---
Date of service: 03/22/25 Discharge Plan Disposition Patient Disposition: Home Condition: Good Discharge Details Reason For Visit: R THR Attending Provider: Marcel Torres Primary Care Provider: Tushar Fournier Home Meds and New Rx's Prescriptions: New acetaminophen 500 mg tablet 1,000 mg PO TID Qty: 90 3RF celecoxib 200 mg capsule 200 mg PO BID Qty: 60 0RF dexamethasone 4 mg tablet 4 mg PO DAILY Qty: 2 0RF docusate sodium 100 mg capsule 100 mg PO BID PRNQty: 28 0RF pantoprazole 40 mg tablet,delayed release (DR/EC) 40 mg PO DAILY Qty: 14 0RF oxycodone 5 mg tablet 5 mg PO Q4H MDD 6 tabs PRN (Reason: pain) Qty: 12 0RF Continued timolol maleate 0.5 % drops 1 drp ophthalmic (eye) DAILY Rx Instructions: 1 drop each eye every a.m furosemide [Lasix] 40 mg tablet 40 mg PO DAILY PRN (Reason: swelling) Qty: 90 3RF omega 5-ovb-ipw-fish oil [Fish Oil] 1,200 (144-216) mg capsule PO DAILY AM Systane Complete PF 0.6 % drops ophthalmic (eye) BID Rx Instructions: 1 drop each eye BID omega-3 fatty acids-fish oil 1 EACH capsule 1 ea PO DAILY Qty: 270 Patient Comments: daily 01/12/13 amlodipine 5 mg tablet 10 mg PO HS Qty: 90 metoprolol succinate 25 mg tablet extended release 24 hr 50 mg PO DAILY Qty: 90 lisinopril 20 mg tablet See Rx Instructions .ROUTE .COMPLEX Qty: 90 3RF Dose Instruction: TAKE 1 TABLET AT BEDTIME Rx Instructions: TAKE 1 TABLET AT BEDTIME Xarelto 20 mg tablet 20 mg PO DAILY Qty: 90 3RF pravastatin 40 mg tablet 40 mg PO DAILY Qty: 90 3RF Jardiance 10 mg tablet 10 mg PO DAILY Qty: 90 3RF Discharge Instructions Additional Instructions: Total Hip Discharge Instructions Activity: The most important activity is to walk. You should try to take short walks a few times a day. You have no restrictions on movement or positioning, but do not try to force what you do. You will find some stiffness and weakness with hip flexion (lifting your knee). Do not try to strengthen this too early, continue to practice walking and stairs and this will come. - Outpatient physical therapy can be helpful to help return you to a normal gait and improve your flexibility and strength. This can start around 2 weeks. For some patients, it?s not necessary. Usually this is determined at the time of discharge or at the first post-operative visit. - You should wear the RASTA hose on both legs for 2 weeks. Dressing: Keep the surgical dressing in place for at least one week. After the first week it may be removed and replace with light gauze and tape or nothing. It may get wet after 3 days but avoid soaking the dressing. If it gets wet, just lightly pat dry. It is important to always keep some gauze between skin folds, especially when you are sitting. Spend some time with the wound exposed when you are lying flat as the incision does wrinkle onto itself. Medications: - You should take Tylenol and an anti-inflammatory Celebrex as your primary pain control medications. If the Celebrex is too expensive or not covered, please call the office for another alternative (Advil/Ibuprofen or Naproxen/Aleve). - You have been prescribed a stronger pain medication Oxycodone for breakthrough pain, take as needed as prescribed. - You have also been prescribed a stomach acid reduction agent Pantoprozole to help reduce stomach acid and reflux. - You have also been prescribed Decadron to help with post-operative nausea and pain. You will take this for two days starting tomorrow. - You will be taking your rivaroxaban for DVT prevention unless instructed otherwise. - If you have constipation you should take Colace or Miralax (both uidk-qbr-flpowbi). It takes most people 3-4 days to have a bowel movement. Follow-up: 2 weeks If you have any acute concerns or questions, please do not hesitate to contact the office at [phone]. You may contact Dr. Torres with any questions after hours through the hospital at [phone] or on his cell phone at [phone]. Stand Alone Forms: Portal Information Referrals: Marcel Torres MD [ [facility] STAFF PHYSICIAN, Orthopaedic Surgical] Equipment/Supplies: Walker Activity:: Activity as Tolerated Shower/Bathe:: 72 hours Diet:: As Tolerated Discharge Orders Discharge Orders: Discharge Order (Routine); Ordered 03/22/25 Ordered By: Duran Chavarria DS: Diagnosis Discharge Diagnosis (1) Osteoarthritis of right hip: Status: Acute
[2025-03-22] MEDS: ceFAZolin 2 GM/50 ML BAG IVPB (07:50)
--- NOTE | 2025-03-22 07:55 | ROE_ITS ---
Operative Note Operative Note PRE-OP DIAGNOSIS: Right Hip Osteoarthritis POST-OP DIAGNOSIS: same PROCEDURE: Right Anterior Total Hip Arthroplasty with Intraoperative Navigation SURGEON: Marcel Torres PERSONAL FITNESS MANAGER: Duran Chavarria ANESTHESIA TYPE: General LMA/ETT Refer to Anesthesia Record ESTIMATED BLOOD LOSS: 250 PATHOLOGY: none sent TOURNIQUET TIME: 0 COMPLICATIONS: None Patient was transported to: PACU Patient's condition: stable Implants: 1. Depuy [place] Acetabular Component, 58mm 2. Depuy Acetabular Liner, [id number] 3. Depuy Actis Standard Collared Femoral Stem, Size 7 4. Depuy Altrx Ceramic Femoral Head, Size 36+5mm Indications: I have seen Tan in clinic for symptoms of hip arthritis, confirmed with radiographic findings. He has exhausted nonoperative methods and was having significant limitations in daily function and desired better function and less pain. I discussed the technical details of a hip replacement. I explained the risks of the procedure to include, but not limited to, bleeding, infection, pain, stiffness, fracture, damage to nerves and vessels, damage to muscles and tendons, loosening, instability, leg length inequality, need for repeat procedure, blood clot and cardiopulmonary demise. Despite these risks, Tan elected to proceed. Findings: There was significant signs of arthritis throughout the hip with deformity of the femoral head. Procedure Description: Tan was greeted in the preoperative holding area where the correct side was identified and marked. The consent was reviewed with the patient and signed. The history and physical was updated. All questions were answered. He was taken back to the operating room. A general anesthestic was then administered. The feet were wrapped with cast padding and Coban and then placed into the boot liners and then into the boots. Care was taken to protect the skin and make sure the heels were fully down and the boots were stable. The patient was then positioned onto the HANA table. Both legs were held in a neutral position. SCDs were applied. The patient was then slid down onto a peroneal post. Prophylactic antibiotics in the form of Cefazolin were administered. 1g of Tranxemic Acid was given intravenously within 30 minutes of incision. The left leg was then prepped with Chloraprep and draped in a standard fashion. A second prep with Chloraprep was performed prior to placement of a shower-curtain type drape with Iodine impregnated skin protection. A timeout to confirm correct identity, side and site, procedure, allergies, anesthesia, and medical concerns was performed. An obliquely oriented incision was made starting lateral to the ASIS and running distal over the Tensor Fascia Amara (TFL) muscle belly toward the fibular head, approximately 10cm. The skin and soft tissue was dissected sharply, through Chey?s fascia, and to the fascia of the TFL. With the fascia and superior border of the IT band identified, the fascia was incised with a new knife just above any perforators from the IT band. The TFL muscle belly was bluntly dissected away from the fascia and moved laterally. The fat between TFL and rectus was identified to ensure the dissection was not within the TFL. Blunt dissection created space between abductors and the capsule and retractor was placed over the lateral femoral neck. The fibers of the rectus femoris tendon were identified and these were freed from the anterior capsule. A second cobra retractor was placed around the medial femoral neck. The TFL was further retracted laterally to show the deep fascia. Careful dissection through this layer identified three main crossing vessels of the lateral femoral circumflex. These were cauterized in multiple locations and then cut without any noticeable bleeding. The TFL was further released bluntly from the deep fascia to expose anterior hip capsule and fat The soft tissue orthopaedic retractor was then placed beneath the TFL and against sartorius and medial soft tissues to protect and retract the soft tissues. A T-capsulotomy was then performed starting at the superior lateral acetabulum and moving distally to the intertrochanteric ridge. These capsular flaps were tagged with a No. 1 Vicryl and elevated from within. The capsular flaps were released to the shoulder of the lateral neck and to the lesser trochanter to give excellent visualization of the proximal femur. A neck osteotomy was performed using an oscillating saw based on preoperative templates. This cut started in the shoulder and of the lateral neck and exited medially. The saw was at all times directed medially to avoid injury to the greater trochanter. Gross traction was applied to the leg and the osteotomy opened. The femoral head was removed with a corkscrew, making sure to protect the TFL on its exit. Traction was released after head removal. This was measured on the back table to determine the starting reamer size. Portions of the rectus obscuring visualization were minimally elevated off the superior acetabulum. An anterior retractor was placed over the anterior wall between capsule and labrum and attached to the Gripper retraction system. The femur was rotated to 90 degrees and medial capsule was fully released until the lesser trochanter was palpable and visible; the femur was returned to 30 degrees. A posterior retractor was placed similarly between capsule and labrum. This provided excellent visualization. The contents of the cotyloid fossa were removed with electrocautery and the labrum was removed with a knife. There was a notable floor osteophyte. There was significant chondromalacia of the superior acetabulum. Acetabular reaming began with a 51mm reamer. This first reaming was directed anterior to posterior and medial to get down to the true floor. This was inspected and reamed until the true floor was reached. The anterior retractor was then released and entry and exit was provided by traction on the capsular flaps. I then reamed sequentially up to a 58mm reamer where good fit was obtained. The larger reamers were oriented based on anatomical reference of the anterior and lateral gallardo to ensure proper abduction and anteversion. Positioning and size was confirmed with the fluoroscopy. A 58mm Depuy [place] acetabular component was selected. The acetabulum was reamed around the periphery with the selected acetabular size to prevent a rim fit. The deep tissues were irrigated. The acetabular component was then impacted in a position of about 40-45 degrees of abduction and 15-20 degrees of anteversion, using the patient?s anatomy as the ultimate landmark. Fluoroscopy was used to confirm this. There was excellent dental technician instructor of the acetabular component and the inserting handle was removed. The acetabular liner, Depuy [id number] polyethylene liner, was inserted and lined up with the tines of the acetabular component. There was no soft tissue interposition. The liner was then impacted into position and confirmed to be well-seated. A portion of the derek-articular cocktail was then injected around the acetabulum into the capsule and periosteum. This cocktail consisted of 123mg of Ropivacaine, 0.25mg of Epinephrine, 0.04mg of Clonidine, and 15mg of Ketorolac, diluted to 50cc. The leg was rotated to 120 degrees. Any remaining medial capsule was released until the lesser trochanter was easily palpable. A retractor was placed medially. The lateral capsule was further released into the shoulder to allow access to the greater trochanter. A White retractor was placed over the greater trochanter which allowed the trochanter to flip in front of the capsule for excellent exposure. The leg was brought down into maximal extension and 20 degrees of adduction while ensuring there was no impingement on the acetabulum. Any remnant capsule within the trochanter was released. Piriformis and obturator externis were identified and protected. There was excellent access to the proximal femur. The lateral neck remnant was removed with a rongeur. A blunt canal probe was used to identify the canal and trajectory for later broaching. A box osteotome initiated the broach course. A small curved rasp and a curved curette were used to work laterally. Broaching then began with a starter Actis broach. This was inserted manually around the trochanter and into the canal before mallet blows. The broach was seated to a few millimeters below the cut level based on the neck cut and the preoperative template. Sequential broaching was continued with the [employer] pneumatic broaching device until a tight fit was obtained with good rotational control of the femur. A trial standard neck was inserted along with a +5 trial head. The leg was brought out of extension and adduction and then reduced with traction and internal rotation. The leg was stable anteriorly in a position of 30 degrees of extension and 90 degrees of external rotation. Fluoroscopy was used to ensure there was no fracture and the stem was seated well. Leg lengths were checked with an AP pelvis and pelvic reference points. Prolebrity navigation system was used to confirm appropriate positioning and leg length and offset. Once content with the desired offset and leg lengths, the leg was brought back into extension, external rotation and adduction. The periosteum and surrounding tissue was injected with remaining portion of the derek-articular cocktail. The proximal femur was irrigated as well as the deep tissues. The [employer] standard collared stem, size 7, was then manually inserted into the proximal femur making sure to control rotation. It was then malleted into position with light blows, giving breaks to allow bone expansion and decrease risk of fracture. The selected Depuy Altrx Ceramic Head, size 36+5mm, was then placed onto the clean and dry trunnion and secured with impaction onto the tapered fit. The leg was brought back out of extension and adduction and reduced with traction and internal rotation. Stability was confirmed with no shuck at 90 degrees of external rotation and 30 degrees of extension. No impingement through range of motion arc. Final x-ray images were obtained with fluoroscopy to confirm adequate positioning and no intraoperative fracture. The deep tissues were thoroughly irrigated with Surgiphor, betadine solution. This was allowed to sit in the wound for 3 minutes before being thoroughly irrigated out with normal saline. The capsule was then reapproximated with the previously placed sutures and the indirect head of the rectus was inspected and reapproximated with a #1 Vicryl. The TFL fascia was finally closed with a No. 2 Stratafix, barbed suture. Deep tissues were then reapproximated with 0 Vicryl and a running 2-0 Vicryl. The skin was closed with a running 4-0 Monocryl in a subcuticular fashion. This was reinforced with skin glue. A Mepilex silver dressing was applied. At the end of the case, all counts were correct. Tan was transferred to the hospital bed without difficulty and suffering no apparent complication. He has a good prognosis. Physical therapy will start today and without restrictions, weight-bearing as tolerated. His home dose of Xarelto will be used for DVT prophylaxis. Date of Procedure: 03/22/25
[2025-03-22] MEDS: TRANEXAMIC ACID/SOD. CHL. 1,000 MG/100 ML BAG 600 MG IVPB (07:58)
[2025-03-22] MEDS: ROPIvacaine/EPI/CLONIDINE/KET 50 ML SYRINGE IJ (08:19)
[2025-03-22] MEDS: fentaNYL 100 MCG/2 ML VIAL IVP (09:47)
[2025-03-22] MEDS: oxyCODONE 5 MG TAB PO (10:37)
--- NOTE | 2025-03-22 11:18 | PT.INIE ---
PT Notes Visit Reasons: R THR Physical Therapy Day Surgery Initial Evaluation Date: 03/22/2025 Referring Doctor: GINNA Mcmahan PT Orders: PT CONSULT: S/P Ortho surgery Precautions: WBAT through right LE with AD. Patient Profile/Admitting Diagnosis: Tan is an 84-year-old male with degenerative joint disease of the right hip and is status post right total hip arthroplasty on postoperative day 0. EBL 250 ml. General anesthesia provided intraoperatively. PMHX: All Active Problems (Updated 03/02/25 @ 10:23 by Desiree Onofre MD) Emphysema of lung (Chronic 2022) diagnosed at [facility]; followed by pulmonology Localized osteoarthritis of right knee (Acute) Osteoarthritis of right hip (Acute) Venous (peripheral) insufficiency (Acute) Hammertoe of right foot (Acute) Atrial fibrillation (Chronic) CHF (congestive heart failure) (Chronic) Shortness of breath (Acute) Extensor tendinitis of foot (Acute) Hammertoe of left foot (Acute) Paroxysmal atrial fibrillation (Chronic 09/14/15) Overweight (Chronic) Hyperlipidemia (Chronic) Family history of malignant neoplasm of prostate (Chronic) Essential hypertension (Chronic) BPH w urinary obs/LUTS (Acute) Bladder cancer (Acute 2019) 2020-status post transurethral resection, recurrence also treated with resection, status post chemotherapy infusion followed by urology-[facility] Hyperglycemia (Acute) 08/2021, [id number] 5.8% Leg edema (Acute) c/w venous stasis Medical History (Updated 03/02/25 @ 10:23 by Desiree Onofre MD) Ureteral stone Bladder stone History of tobacco use Kidney stone Bucket handle tear of lateral meniscus of knee (02/27/07) left knee; repaired Kidney stone Surgical History Hx of toe surgery arthritic ring toe left History of bunionectomy Hx of appendectomy History of appendectomy History of arthroscopy of knee Dr. Sweet; left knee; repair medial meniscus History of open reduction and internal fixation (ORIF) procedure 1969 Right leg Status post bunionectomy Bilateral Status post carpal tunnel release Open Carpal Tunnel release LEFT Fracture, Open Treatment (~1969) RIGHT LEG Social History/Home Situation: Lives with in a private home with 2 steps to enter without rails. Equipment Owned/DME: None Subjective: Patient is excited about being able to do more with the right hip during exercise session and mobility assessment. Denied headache, chest pain, and lightheadedness throughout session Objective: General Observation: Mepilex Ag over surgical incision. TEDS to be legs. Cold pack to right hip. Nurse Arriola attending to patient martita PT came in. Mental Status: A and O x 4 Pain: At rest reported 5/10 in the right hip Vital Signs: Oxygen saturation lowest of 87% on RA after mobility assessment with increase in back to 89% with seated rest. ROM: Right Lower Extremity: Hip flexion WFL. Hip abduction WFL. Knee flexion WFL. Ankle dorsiflexion WFL. Ankle plantarflexion WFL. Left Lower Extremity: Hip flexion WFL. Hip abduction WFL. Knee flexion WFL. Ankle dorsiflexion WFL. Ankle plantarflexion WFL. Strength: Right Lower Extremity: Hip flexors 4-/5. Hip abductors 4-/5. Knee flexors 5/5. Knee extensors 4-/5. Ankle dorsiflexors 5/5. Ankle plantarflexors 5/5. Left Lower Extremity:Hip flexors 5/5. Hip abductors 5/5. Knee flexors 5/5. Knee extensors 5/5. Ankle dorsiflexors 5/5. Ankle plantarflexors 5/5. Sensation: Intact as to pain and light pressure in bilateral lower extremities Bed Mobility/Transfers: Minimal cueing provided for use of B hands as needed for support, movement sequence, AD management, and posture to reduce fall risk and minimize pain report Supine to sit stand by assist Sit to stand stand by assist with FWW Stand to sit stand by assist with FWW Bed to chair stand by assist with FWW Gait: 150 feet with front-wheeled walker with stand by assist. Minimal verbal cueing was provided for safe limb movement sequence, AD management, weight distribution and posture to minimize pain report and reduce fall risk. Step-to gait pattern intially but patient was able to perform step through gait pattern later in the walk. Pain level subsided to 3/10 from 5/10 with the walk. Denied headache, chest pain, and lightheadedness throughout session. Oxygen saturation lowest of 89% on RA. Stairs: Up and down 9 x 4 inch steps and 6 x 6-inch steps while holding onto 1 rail and using a SPC on the other side or support. Minimal verbal cueing for limb movement sequence, hand placement, AD management, and posture to minimize pain report and reduce fall risk. No report of increased pain. Oxygen saturation lowest of 88% on RA. Balance: Static Sitting: Normal Dynamic Sitting: Normal Static Standing: Fair from Dynamic Standing: Fair Special Tests: Mobility Limitations Standardized Measure [facility] AM-PAC 6 clicks Basic Mobility Inpatient Short Form: Raw Score: 23 CMS Score: 11% deficit Informed Consent/Education: Patient instructed in purpose of PT consult. Packet containing CLAU exercise protocol has been given to patient. Education and training on initial set of exercises that can be done at home have been completed with patient. Trained patient with correct performance of exercises below to maximize motor control, joint flexibility, soft tissue extensibility of the R hip musculature to facilitate return to independent functional mobility performance. Access Code: [email or web address] URL: [email or web address] Date: 03/22/2023 Prepared by: Carolyn Cervantes Exercises - Gluteal Sets - 1 x daily - 7 x weekly - 1 sets - 10 reps - 5 hold - Supine Heel Slide - 1 x daily - 7 x weekly - 1 sets - 10 reps - 5 hold - Supine Ankle Pumps - 1 x daily - 7 x weekly - 1 sets - 10 reps - 5 hold - Seated March - 1 x daily - 7 x weekly - 1 sets - 10 reps - 5 hold - Seated Long Arc Quad - 1 x daily - 7 x weekly - 1 sets - 10 reps - 5 hold Assessment: Patient required the use of a front-wheeled walker for all mbility ADL performance on level surface and a SPC on the stairs to maximize independence and reduce fall risk.Patient presents with clinical signs and symptoms consistent with current/admitting diagnoses that have resulted to mobility limitations, gait instability, generalized weakness, and impairment of motor control as demonstrated by the following impairment level findings: 1. Decreased strength to R hip major muscle groups 2. Impaired standing balance Impairments are contributing to the following functional limitations: 1. Inability to safely ambulate without assistive device 2. Increase completion time for mobility ADL performance 3. Increased fall risk Patient is assessed as a [id number] moderate complexity based on the following: History: 84-year-old male with impairment level findings, functional limitations, and past medical history as indicated above Examination: Demonstrable impairment in strength, balance, and mobility level with underlying impairments and functional limitations as documented above Presentation: Evolving Decision Makin moderate complexity Goals: N/A. PT evaluation and 1-2 treatment sessions only for functional mobility training using recommended AD and for HEP instruction. Plan of Care/Treatment Plan: N/A. PT evaluation and 1-2 treatment session only for functional mobility training using recommended AD and for HEP instruction. DISCHARGE RECOMMENDATIONS: Home when medically cleared by orthopedic surgeon. Recommend outpatient PT services in order to optimize functional mobility outcomes and facilitate return to independent community ambulation without an assistive device. TREATMENT CODE/TIME: 13692 x 20 minutes for 1 unit, 74741 x 17 minutes for 1 unit (11:18-11:55). Thank you for the opportunity to participate in the care of this patient. Carolyn Cervantes PT, DPT, CLT [facility] [place], [place]
[2025-03-22] MEDS: Tranexamic Acid 650 MG TAB 1300 MG PO (11:21)
--- NOTE | 2025-03-22 12:21 | W.ANESPOSTOP ---
Postoperative Evaluation Date, Time and Location Date Performed: 03/22/25 Time Performed: 12:00 Patient Location: Day Surgery Unit Vital Signs Most Recent Imported Vital Signs: Most Recent Vital Signs Temp Pulse Resp BP Pulse Ox 36.1 C L 48 L 18 112/55 L 97 03/22/25 11:16 03/22/25 11:16 03/22/25 11:16 03/22/25 11:16 03/22/25 11:16 Pain Score Most Recent Pain Score: Most Recent Pain Score Pain Level 5 03/22/25 11:16 Assessment Mental Status: Awake (Alert & Oriented to Patient Baseline) Airway and Respiratory Function: Patent airway with normal (patient baseline) respiratory exam Cardiovascular Function: Hemodynamically Stable Hydration Status: Adequately Hydrated Nausea & Vomiting: No Nausea or Vomiting Pain: Pain is Moderate or Severe Postoperative Pain Management: Pain being addressed with medication Peripheral Nerve Block: Patient did not receive a nerve block Postoperative Comments:: Discussed use of I/S while awake, reports no SOB.
== END 2025-03-22 12:38 | disposition home or self-care (01) ==
PROVIDERS: Student in an Organized Health Care Education/Training Program; PCP Family Medicine; Visit Provider Student in an Organized Health Care Education/Training Program
PROC: (CPT 27130; principal; 2025-03-22 07:30)
DX: M16.11 Unilateral primary osteoarthritis, right hip (principal); Z79.01 Long term (current) use of anticoagulants; I50.9 Heart failure, unspecified; I48.0 Paroxysmal atrial fibrillation
CPT/HCPCS: 20985; 27130; 80048; 97162; 97530; 73501; 83880; C1776; J0690; J1100; J1805; J2003; J2704; J3010